=== PATIENT | female | born 1965 | race Caucasian/White ===

== ENCOUNTER 2016-05-25 09:40 | Outpatient (CLI) | payer OTHER, MEDICAID ==
[~2016-05-25 09:40] MED LIST: /WARF5TA OR; ACET500C OR; ACET50TA PO; ACETAMINOPHEN PO; ADDE10CA3 OR; ADDE1TAB22 PO; ADDE30CA PO; ALDA100T OR; ALDA25TA2 PO; AMPH30TA PO; ANUSHCSU PR; ARGININE PO; ASAC800T2 PO; ASACOL PO; BACITAB3 PO; BACT800T OR; BACTDSTA PO; BELLADONNA PO; BIOT50004 PO; BUPR15TASR PO; CALC250T PO; CARA1TAB2 PO; CEPH2CAP PO; CHOLESTYRAMINE PO; CIPR100T4 OR; CIPR25SS OR; CIPR500T89 PO; COEN100C2 PO; COLA100C PO; COLA50CA3 PO; COQ-100C PO; CYAN1000 IM; CYAN1000VL IM; DELZ400C PO; DICY10CA PO; DICY10CA2 PO; DICY10CA69 PO; DICY1CAP8 PO; DICY20TA11 PO; DIFI200T PO; ENTY1INJ IV; FEMA2.5T4 PO; FENT10PA TD; FENT75PA TD; FIRS1SOL3 PO; FLAG500T OR; FLAG500T PO; FOLI1TAB OR; FOLI1TAB86 PO; FOLITAB11 PO; FURO20TA2 PO; HYDR25TA6 OR; HYDR25TAB PO; HYDRO50TAB PO; IBUP200C PO; IBUPOTC PO; K-TA10TA PO; LEVA500T PO; LEVO125T3 PO; LEVO125T41 PO; LEVO137T2 PO; LEVO200T OR; LEVO200T31 PO; LEVO2TA OR; LEVO50TA45 PO; LOMO2.5T PO; LOMOTA PO; LOPE2TAB3 PO; MAG400TA PO; MAGN500T2 OR; METR500T10 PO; MS C30TA2 OR; MULTCHW13 PO; MULTIVIT PO; OCEA0.654; OMEP20TA7 OR; ONDA8TAB8 PO; OXY IR PO; OXYC15TA76 PO; OXYC1TAB57 PO; OXYC30TA84 PO; OXYCODONE PO; PERC5TAB8 OR; PERC7.5T12 PO; PERC7.5T8 OR; PHENOBARBITAL PO; POTA10CA PO; POTA20LI2 PO; POTA20TA2 OR; PRED10TA2 OR; PRED1TAB32 PO; PRED20TA PO; PRED20TAB PO; PRED50TA2 PO; PRESTIQUE PO; PRIL20CA9 PO; PRISTIQ PO; PROBCAP4 PO; PROBIOTICS PO; PROT1TAB2 PO; QUES4POW2 PO; SENO8.6T9 PO; SERT-141 PO; SODIUM CHLORIDE 0.9% INJ 10 ML SYR IV SCH; SYNT25TA PO; TUMS500C PO; TYLE325T5 PO; TYLE650T30 PO; VANC250C2 PO; VIT D 4000 PO; VITA10006 PO; VITA100T OR; VITA25003 IM; VITACAP31 PO; VITAD1000T PO; VITAMIN B 12; VITD2 PO; VITMTA PO; WELL150T PO; XANA0.5T PO; ZOFR8TAB PO; [UNRECOGNIZED DRUG - OTHER] PO; amphetamine salts PO; lomotil PO
[2016-05-25] MEDS ORDERED: VEDOLIZUMAB 300 MG in NS 250 ML IV ONE (10:30)
[2016-05-25] MEDS ORDERED: diphenhydrAMINE 25 MG CAP PO ONE (10:30)
[2016-05-25] MEDS ORDERED: ACETAMINOPHEN TAB 650MG DOSE (2X325MG) PO ONE (10:30)
== END 2016-05-25 11:30 | disposition home or self-care (01) ==
LOC: M INFU 09:40
PROVIDERS: ATTEND Internal Medicine Gastroenterology
DX: K50.00 Crohn's disease of small intestine without complications (principal); G51.0 Bell's palsy; E07.9 Disorder of thyroid, unspecified; R42 Dizziness and giddiness; I10 Essential (primary) hypertension; R06.83 Snoring; K90.0 Celiac disease; Z79.891 Long term (current) use of opiate analgesic; Z88.0 Allergy status to penicillin; Z88.8 Allergy status to other drugs, medicaments and biological substances; Z91.018 Allergy to other foods; Z86.718 Personal history of other venous thrombosis and embolism; Z92.3 Personal history of irradiation; Z92.21 Personal history of antineoplastic chemotherapy; Z85.3 Personal history of malignant neoplasm of breast; Z79.899 Other long term (current) drug therapy
CPT/HCPCS: 96413; J3380

== ENCOUNTER 2016-07-27 13:01 | Outpatient (CLI) | payer OTHER, MEDICAID ==
[~2016-07-27] VITALS: Ht 175.3 cm; Wt 83.5 kg
[~2016-07-27 13:01] MED LIST changes: +ACETAMINOPHEN TAB 650MG DOSE (2X325MG) PO ONE; -COLA100C PO; +COLA100C3 PO; +VEDOLIZUMAB 300 MG in NS 250 ML IV ONE; +diphenhydrAMINE 25 MG CAP PO ONE
[2016-07-27] MEDS ORDERED: DULO30CA PO (14:09)
== END 2016-07-27 14:05 | disposition home or self-care (01) ==
LOC: M INFU 13:01
PROVIDERS: ATTEND Internal Medicine Gastroenterology
DX: K50.00 Crohn's disease of small intestine without complications (principal); Z79.899 Other long term (current) drug therapy; Z79.1 Long term (current) use of non-steroidal anti-inflammatories (NSAID); Z79.891 Long term (current) use of opiate analgesic; Z88.0 Allergy status to penicillin; Z88.8 Allergy status to other drugs, medicaments and biological substances; Z91.018 Allergy to other foods
CPT/HCPCS: 96413; J3380

== ENCOUNTER 2016-08-10 12:18 | Emergency (ER) | payer OTHER, MEDICAID ==
[~2016-08-10] VITALS: Ht 175.3 cm; Wt 83.9 kg
[~2016-08-10 12:18] MED LIST changes: -ACETAMINOPHEN TAB 650MG DOSE (2X325MG) PO ONE; +DULO30CA PO; -SODIUM CHLORIDE 0.9% INJ 10 ML SYR IV SCH; -VEDOLIZUMAB 300 MG in NS 250 ML IV ONE; -diphenhydrAMINE 25 MG CAP PO ONE
[2016-08-10 12:25] VITALS: BP 160/119
[2016-08-10] MEDS ORDERED: ENTY1INJ IV (12:32)
[2016-08-10] MEDS ORDERED: HYDROmorphone HCL 1 MG/ML SYRINGE (J1170) IM ONE (13:00)
[2016-08-10] MEDS ORDERED: NS 500 ML IV ONE (14:00)
[2016-08-10] MEDS ORDERED: HYDROmorphone HCL 1 MG/ML SYRINGE (J1170) IV ONE (14:15)
--- NOTE | 2016-08-10 14:16 | REP ---
PELVIC ULTRASOUND: Real-time sonographic evaluation of pelvis performed utilizing transabdominal and endovaginal technique. Urinary bladder is empty. The uterus measures 7.1 x 3.2 x 4.6 cm. Endometrial thickness is 3 mm. Nabothian cysts are seen in the region of the cervix. The ovaries could not be visualized. No gross adnexal mass is seen. There is mild free fluid. IMPRESSION: Ovaries could not be visualized. There is mild free fluid. There is no gross mass. Signed by Rojelio Roth MD 08/10/2016 02:29 P
== END 2016-08-10 14:19 | disposition left against medical advice (07) ==
LOC: EDBD 12:18 → M ED 13:54
DX: G89.29 Other chronic pain (principal); R10.31 Right lower quadrant pain; Z87.891 Personal history of nicotine dependence; R51 Headache; I10 Essential (primary) hypertension; E78.00 Pure hypercholesterolemia, unspecified; J45.909 Unspecified asthma, uncomplicated; Z86.711 Personal history of pulmonary embolism; Z86.19 Personal history of other infectious and parasitic diseases; K90.0 Celiac disease; K51.90 Ulcerative colitis, unspecified, without complications; Z85.3 Personal history of malignant neoplasm of breast; Z85.41 Personal history of malignant neoplasm of cervix uteri; Z85.43 Personal history of malignant neoplasm of ovary; E03.9 Hypothyroidism, unspecified; F41.9 Anxiety disorder, unspecified; F32.9 Major depressive disorder, single episode, unspecified; D75.9 Disease of blood and blood-forming organs, unspecified; M54.9 Dorsalgia, unspecified; Z79.899 Other long term (current) drug therapy; Z88.0 Allergy status to penicillin; Z91.018 Allergy to other foods; Z88.6 Allergy status to analgesic agent; Z88.8 Allergy status to other drugs, medicaments and biological substances
CPT/HCPCS: 76830; 76856; 96372; 99282; J1170

== ENCOUNTER 2016-10-03 08:42 | Outpatient (CLI) | payer OTHER, MEDICAID ==
[~2016-10-03] VITALS: Ht 175.3 cm; Wt 83.5 kg
[~2016-10-03 08:42] MED LIST changes: +ACETAMINOPHEN TAB 650MG DOSE (2X325MG) PO ONE; +VEDOLIZUMAB 300 MG in NS 250 ML IV ONE; +diphenhydrAMINE 25 MG CAP PO ONE
[2016-10-03] MEDS ORDERED: SODIUM CHLORIDE 0.9% INJ 10 ML SYR IV SCH (09:00)
== END 2016-10-03 10:15 | disposition home or self-care (01) ==
LOC: M INFU 08:42
PROVIDERS: ATTEND Internal Medicine Gastroenterology
DX: K50.90 Crohn's disease, unspecified, without complications (principal); Z87.891 Personal history of nicotine dependence; Z85.3 Personal history of malignant neoplasm of breast; Z92.21 Personal history of antineoplastic chemotherapy; Z92.3 Personal history of irradiation; Z91.018 Allergy to other foods; Z88.0 Allergy status to penicillin; Z88.8 Allergy status to other drugs, medicaments and biological substances; Z79.899 Other long term (current) drug therapy; Z79.891 Long term (current) use of opiate analgesic
CPT/HCPCS: 96413; J3380

== ENCOUNTER → 2016-10-20 | Outpatient (REF) | payer OTHER, MEDICAID ==
[~2016-10-20] MED LIST changes: -ACETAMINOPHEN TAB 650MG DOSE (2X325MG) PO ONE; -VEDOLIZUMAB 300 MG in NS 250 ML IV ONE; -diphenhydrAMINE 25 MG CAP PO ONE
[2016-10-20 17:32] LABS: LUTEINIZING HORMONE 5.3 mIU/mL
[2016-10-20 17:53] LABS: PERCENT SATURATION 13.4 % (13.2-37.4)
== END ==
LOC: M LAB REF 16:34
PROVIDERS: ATTEND Internal Medicine Medical Oncology
DX: C50.119 Malignant neoplasm of central portion of unspecified female breast (principal)

== ENCOUNTER → 2016-11-02 | Outpatient (CLI) | payer OTHER, MEDICAID ==
[~2016-11-02] MED LIST changes: -ADDE30CA PO; +ADDE30CA3 PO; +ASAC800T3 PO; +ATOR1TAB21 PO; +BACITAB PO; -BACITAB3 PO; -COLA100C3 PO; +COLA100C5 PO; +DULO1CAP3 PO; +LETR2.5T2 PO; +LEVA1TAB2 PO; -LEVA500T PO; +METR1TAB66 PO; -METR500T10 PO; -MULTCHW13 PO; +MULTCHW14 PO; +OXYC-405 PO; -OXYC1TAB57 PO; +REGL10TA6 PO; +SYNT300T2 PO
--- NOTE | 2016-11-03 09:16 | DEXA ---
AP SPINE L1 - L4 0.893 -2.4 -2.0 LT FEMUR TOTAL 0.781 -1.8 -1.3 RT FEMUR TOTAL 0.760 -2.0 -1.5 TOTAL BODY TOTAL OTHER DUAL FEMUR FRAX* ASSESSMENT Risk factors: History of fracture (adult). Glucocorticoids (chronic). 10 year probability of fracture Major osteoporotic fracture 14.8 % Hip fracture 2.0 % COMMENTS: There is low bone density of the spine and hips. FOLLOW-UP: Recommendation for the next bone density exam: 2 years. MATTY
== END ==
LOC: M WHC 11:09
PROVIDERS: ATTEND Internal Medicine Medical Oncology
DX: C50.519 Malignant neoplasm of lower-outer quadrant of unspecified female breast (principal)

== ENCOUNTER → 2016-12-05 | Outpatient (REF) | payer OTHER, MEDICAID ==
[2016-12-05 16:35] LABS: ANION GAP 9 MEQ/L (8-16); AST/SGOT 39 U/L (15-37); BLOOD UREA NITROGEN 10 MG/DL (7-18); CARBON DIOXIDE LEVEL 26 MEQ/L (21-32); CHLORIDE LEVEL 106 MEQ/L (98-107); GLOMERULAR FILTRATION RATE > 60.0 (>51); GLUCOSE, FASTING 92 MG/DL (70-105); POTASSIUM SERUM 4.7 MEQ/L (3.5-5.1); SODIUM LEVEL 141 MEQ/L (136-145)
[2016-12-05 16:36] LABS: ALBUMIN 4.1 GM/DL (3.2-5.2); ALBUMIN/GLOBULIN RATIO 1.24 (1.00-1.93); ALKALINE PHOSPHATASE 173 U/L (45-117); ALT/SGPT 117 U/L (12-78); BILIRUBIN,TOTAL 0.2 MG/DL (0.2-1.0); FREE T4 1.38 NG/DL (0.76-1.46); TOTAL PROTEIN 7.4 GM/DL (6.4-8.2)
[2016-12-12 14:12] LABS: BENZODIAZEPINES, URINE SCREEN Negative ng/mL (Cutoff=200); FENTANYL URINE Positive (.); METHADONE, URINE SCREEN Negative ng/mL (Cutoff=300); OPIATES, URINE Negative ng/mL (Cutoff=300); OXYCODONE URINE Positive (.); pH, URINE 4.8 (4.5-8.9)
== END ==
LOC: M LABDRAW1 15:50
PROVIDERS: ATTEND Family Medicine
DX: R00.0 Tachycardia, unspecified (principal)

== ENCOUNTER → 2017-01-23 | Outpatient (REF) | payer OTHER, MEDICAID ==
[2017-01-23 14:45] LABS: LUTEINIZING HORMONE 10.1 mIU/mL
[2017-01-23 14:46] LABS: ESTRADIOL < 19.0 PG/ML
[2017-01-23 14:48] LABS: FOLLICLE STIMULATING HORMONE 27.9 mIU/mL
[2017-01-23 15:28] LABS: FERRITIN 9 NG/ML (8-252); PERCENT SATURATION 10.8 % (13.2-45.0); TOTAL IRON BINDING CAPACITY 406 UG/DL (250-450)
== END ==
LOC: M LAB REF 12:48
PROVIDERS: ATTEND Internal Medicine Medical Oncology
DX: C50.911 Malignant neoplasm of unspecified site of right female breast (principal)

== ENCOUNTER 2017-01-26 07:26 | Inpatient (IN) | payer MEDICAID, OTHER ==
[~2017-01-26] VITALS: Ht 175.3 cm; Wt 80.9 kg
[~2017-01-26 07:26] MED LIST changes: -ATOR1TAB21 PO; -DULO1CAP3 PO; -LETR2.5T2 PO; -REGL10TA6 PO; -SYNT300T2 PO
[2017-01-26] MEDS ORDERED: ATOR1TAB21 PO (07:40)
[2017-01-26] MEDS ORDERED: NS 1,000 ML IV ONE (08:00)
[2017-01-26] MEDS ORDERED: ONDANSETRON 4MG/2ML VIAL (J2405) IV ONE ×2 (08:00→11:45)
[2017-01-26] MEDS: MORPHINE 4 MG/ML 1ML SYRINGE IV PRN ×2 (08:08→18:08)
[2017-01-26] MEDS ORDERED: GASTROGRAFIN SOLUTION 30ML (Q9963) As Ordered ONE (08:15)
[2017-01-26] MEDS ORDERED: GASTROGRAFIN SOLUTION 30ML PO ONE (08:15)
[2017-01-26 08:19] LABS: BASO # 0.1 10^3/uL (0.0-0.2); BASO % 0.8 % (0.0-1.0); EOS # 0.2 10^3/uL (0.0-0.50); EOS % 1.5 % (0.0-3.0); IMMATURE GRANULOCYTE % 0.3 % (0-0); LYMPH # 4.2 10^3/uL (1.5-4.5); LYMPH % 32.8 % (24.0-44.0); MEAN CORPUSCULAR HEMOGLOBIN 29.9 pg (27.0-33.0); MEAN CORPUSCULAR VOLUME 87.9 fl (80.0-96.0); MONO # 0.9 10^3/uL (0.0-0.8); MONO % 6.8 % (0.0-5.0); NEUTROPHILS # 7.4 10^3/uL (1.8-7.7); NEUTROPHILS % 57.8 % (36.0-66.0); PLATELET COUNT, AUTOMATED 373 10^3/uL (150-450); RED CELL DISTRIBUTION WIDTH 12.9 % (11.5-14.5); WHITE BLOOD COUNT 12.9 10^3/uL (4.0-10.0)
[2017-01-26 08:40] LABS: ALBUMIN 3.5 GM/DL (3.2-5.2); ALBUMIN/GLOBULIN RATIO 0.95 (1.00-1.93); ALKALINE PHOSPHATASE 137 U/L (45-117); ALT/SGPT 45 U/L (12-78); ANION GAP 6 MEQ/L (8-16); AST/SGOT 14 U/L (15-37); BILIRUBIN,DIRECT < 0.1 MG/DL (0.0-0.2); BILIRUBIN,TOTAL 0.3 MG/DL (0.2-1.0); BLOOD UREA NITROGEN 12 MG/DL (7-18); CALCIUM LEVEL 9.5 MG/DL (8.5-10.1); CARBON DIOXIDE LEVEL 26 MEQ/L (21-32); CHLORIDE LEVEL 109 MEQ/L (98-107); CREATININE FOR GFR 0.75 MG/DL (0.55-1.02); GLOMERULAR FILTRATION RATE > 60.0 (>51); GLUCOSE, FASTING 103 MG/DL (70-105); POTASSIUM SERUM 2.8 MEQ/L (3.5-5.1); SODIUM LEVEL 141 MEQ/L (136-145); TOTAL PROTEIN 7.2 GM/DL (6.4-8.2)
[2017-01-26] MEDS ORDERED: GASTROGRAFIN SOLUTION 30ML (Q9963) PO ONE (08:45)
[2017-01-26] MEDS ORDERED: KCL 40MEQ in NS 1000ML 1,000 ML IV SCH ×2 (09:00→14:45)
--- NOTE | 2017-01-26 10:54 | REP ---
CT abdomen pelvis with IV contrast and with limited bowel contrast: Comparison is 08/09/2016. At the time of scanning there is a small volume of contrast and mid small bowel loops. The visualized lung torres are unremarkable. The hepatic parenchyma is homogeneous and unremarkable. There are surgical clips in the gallbladder fossa. The pancreas and spleen are unremarkable. There is diffuse gastric wall thickening. This is nonspecific and could be secondary to inflammation or neoplasm or could merely be artifact from non distension. There is no small bowel distension or large bowel distension. No evidence of bowel obstruction. There is no ascites. The mesentery is unremarkable. The adrenals and kidneys are unremarkable except for a nonobstructive right renal calculus in the lower pole. This is unchanged. On the comparison study there was a nonobstructive calculus in the left renal mid pole. This is no longer present. There is no hydronephrosis or ureteral calculus. The previous left ureteral calculi left hydronephrosis have resolved. The cecum is on a redundant mesentery as previously and is located anterior to the proximal ascending colon. The terminal ileum has a normal appearance. The appendix is not identified, however there is no pericecal inflammation or abscess. Pelvis: There is no ascites or adenopathy. The uterus and adnexa are unremarkable. On the comparison study there was a cyst in the pouch of Javier. This is no longer present. Impression: Essentially negative CT of the abdomen and pelvis except for diffuse gastric wall thickening. This is nonspecific and could merely be artifact from non distension, however, gastritis and neoplasm are also diagnostic considerations. There is a nonobstructive calculus in each kidney. There is no hydronephrosis. There are no ureteral calculi. There is no bowel distension or obstruction. No bowel wall thickening. No ascites or adenopathy. Half half half The previously there was a cyst in the pouch of Javier. This has resolved. Signed by Rojelio Henry MD 01/26/2017 10:46 A
[2017-01-26 11:01] LABS: ERYTHROCYTE SEDIMENTATION RATE 5 mm/hr (0-30)
[2017-01-26] MEDS ORDERED: MORPHINE 4 MG/ML 1ML SYRINGE IV ONE (11:45)
[2017-01-26] MEDS ORDERED: SYNT300T2 PO (14:31)
[2017-01-26] MEDS ORDERED: DULO1CAP3 PO (14:31)
[2017-01-26] MEDS ORDERED: ISOVUE-370 76% 100ML VIAL (Q9967) ONE (14:37)
[2017-01-26] MEDS ORDERED: IBUPROFEN 200 MG TAB PO PRN (15:15)
[2017-01-26] MEDS ORDERED: IBUPROFEN 400 MG TAB PO PRN (15:18)
[2017-01-26 17:20] VITALS: BP 123/84
--- NOTE | 2017-01-26 17:24 | HPEPDOC ---
General Date of Admission Jan 26, 2017 at 14:36 Chief Complaint The patient is a 51-year-old female complaining of chronic diarrhea and vomiting for 15 days. History of Present Illness PCP: Dr. Monica Rojas This is a 51-year-old female with a pertinent past medical history of celiac and Crohn's disease who is presenting today with chronic diarrhea and vomiting for 15 days. The patient states the diarrhea started about 15 days ago with loose stool that became watery diarrhea about a week ago. She admits to going about 8-21 times a day. She states she has no relief with anything She denies any blood in her stool. She states about 4 days ago, her vomiting episode started and she describes it as a brownish plus black specks in color. She states the last 2 days her vomit has been clear in color. Patient states that she has Zofran at home which provides no relief. She states she has a decrease of appetite on the fear of the vomiting and diarrhea. Patient also admits to an abdominal pain that is sharp in her lower quadrant that radiates sometimes towards her thoracic region. Patient states that she does have a fentanyl patch and oxycodone at home which she uses to get relief from the abdominal pain. Home Medications Scheduled (Entyvio) 300 Mg Inj, 300 MG IV ASDIRECTED, (Reported) EVERY 2 MONTHS, WAS DUE IN NOVEMBER BUT MISSED APPT Amphetamine/Dextroamphetamine (Adderall Xr 30 mg) 1 Cap Cap, 1 CAP PO DAILY, ( Reported) Atorvastatin Calcium (Atorvastatin Calcium) 20 Mg Tab, 20 MG PO QHS, (Reported) Cyanocobalamin (Cyanocobalamin) 1,000 Mcg/1 Ml Inj, 1,000 MCG IM 1XWK, (Reported ) THURSDAYS Duloxetine Hcl (Duloxetine HCl) 60 Mg Cap, 60 MG PO DAILY, (Reported) Fentanyl (Fentanyl) 75 Mcg Tdsy, 150 MCG TD Q3RD, (Reported) REMOVED 01/25/17 AND DID NOT REAPPLY Furosemide (Furosemide) 20 Mg Tab, 20 MG PO DAILY, (Reported) Lactobacillus Acidophilus (Bacid) 1 Tab Tab, 1 TAB PO TID, (Reported) Levothyroxine Sodium (Synthroid) 300 Mcg Tab, 300 MCG PO DAILY, (Reported) Multivitamins *[facility] STOCKED* (Thera M Plus *[facility] STOCKED*) 1 Tab Tab, 1 TAB PO QHS , (Reported) Scheduled PRN Ibuprofen (Ibuprofen) 200 Mg Tab, 400 MG PO Q6H PRN for PAIN / FEVER, (Reported) Ondansetron (Ondansetron Odt) 8 Mg Tab, 8 MG PO Q6H PRN for NAUSEA, (Reported) Oxycodone Hcl (Oxycodone HCl) 15 Mg Tab, 15 MG PO Q4H PRN for PAIN, (Reported) Allergies Coded Allergies: Budesonide (Verified Allergy, Intermediate, EYE SWELLING, 08/04/12) Penicillins (Verified Allergy, Intermediate, HIVES, 08/04/12) Wheat (Verified Allergy, Intermediate, CELIACS DISEASE, 09/06/11) Cephalexin (Verified Allergy, Unknown, 01/26/17) SWELLING Ciprofloxacin (Verified Allergy, Unknown, 01/26/17) SWELLING Gluten Meal (Verified Adverse Reaction, Intermediate, CELIACS DOSEASE, 08/04) Ketorolac Tromethamine (Verified Adverse Reaction, Intermediate, SEVERE HEADACHE, 05/12/13) Past Medical History Medical History 1. Breast cancer status post radiation therapy and chemotherapy June 2015 2. Crohn's 3. Celiac 4. Graves' disease status post radioiodine (2002) 5. Depression 6. Hyperlipidemia Surgical History 1. (971, 1999) 2. Tubal ligation 2002. Lumpectomy August 2013 4. Cholecystectomy 12/07/2007 5. Left knee arthroscopy 1995 6. Lithotripsy Family History Significant Family History: Noncontributory Social History * Smoker: former Smoker, quit greater than 1 year (previously was a 1 pack per day 30 years quit in 2012) Alcohol: other (quit drinking at the age of 16) Drugs: denies Review of Symptoms Constitutional: Denies: Chills, Fever, Night Sweats Eyes: Denies: Pain, Vision change ENT: Denies: Head Aches, Ear Pain, Dysphagia Skin: Denies: Rash, Lesions, Breakdown Pulmonary: Denies: Dyspnea, Cough Cardiovascular: Reports: Edema (chronic (left side)), Denies: Chest Pain, Palpitations, Orthopnea, Paroxysmal Noc. Dyspnea, Lt Headedness Gastrointestinal: Reports: Nausea, Vomiting, Abdominal Pain (lower quadrant), Diarrhea (15 days) Genitourinary: Denies: Dysuria, Frequency, Incontinence, Retention Hematologic: Denies: Bruising, Bleeding Excessively Musculoskeletal: Denies: Neck Pain, Back Pain, Joint Pain, Muscle Pain, Spasms Neurological: Denies: Weakness, Numbness, Change in speech, Confusion Psych: Reports: Mood Normal, Denies: Depression, Memory Issues Physical Examination General Exam: Positive: Alert, No Acute Distress Eye Exam: Positive: PERRLA, Conjunctiva & lids normal, EOMI, Negative: Sclera icteric ENT Exam: Positive: Atraumatic, Other ENT (poor dentitions) Neck Exam: Positive: Supple, Negative: JVD, thyromegaly Chest Exam: Positive: Clear to auscultation, Normal air movement Heart Exam: Positive: Rate Normal, Regular Rhythm, Normal S1, Normal S2, Negative: Murmurs, Rubs Telemetry: Positive: No significant arrhythmia Abdomen Exam: Positive: BS Hyperactive, Soft, Tenderness, Negative: Hepatospenomegaly Extremity Exam: Positive: Normal pulses, Negative: Clubbing, Cyanosis, Edema Skin Exam: Positive: Nl turgor and temperature, Negative: Breakdown, Lesion Neuro Exam: Positive: Normal Gait, Normal Speech, Cranial Nerves 3-12 NL, Reflexes 2+ Psych Exam: Positive: Mental status NL, Mood NL, Oriented x 3 Vital Signs Vital Signs Date Time Temp Pulse Resp B/P (MAP) Pulse Ox O2 Delivery O2 Flow Rate FiO2 01/26/17 12:26 98.3 84 18 111/69 (83) 98 Room Air Laboratory Data Labs 24H Laboratory Tests 2 01/26/17 08:01: White Blood Count 12.9H, Red Blood Count 4.72, Hemoglobin 14.1, Hematocrit 41.5 , Mean Corpuscular Volume 87.9, Mean Corpuscular Hemoglobin 29.9, Mean Corpuscular Hemoglobin Concent 34.0, Red Cell Distribution Width 12.9, Platelet Count 373, Neutrophils (%) (Auto) 57.8, Lymphocytes (%) (Auto) 32.8, Monocytes ( %) (Auto) 6.8H, Eosinophils (%) (Auto) 1.5, Basophils (%) (Auto) 0.8, Neutrophils # (Auto) 7.4, Lymphocytes # (Auto) 4.2, Monocytes # (Auto) 0.9H, Eosinophils # (Auto) 0.2, Basophils # (Auto) 0.1, Immature Granulocyte # (Auto) 0.0, Nucleated Red Blood Cells % (auto) 0.0, Erythrocyte Sedimentation Rate 5, Anion Gap 6L, Glomerular Filtration Rate > 60.0, Calcium Level 9.5, Aspartate Amino Transf (AST/SGOT) 14L, Alanine Aminotransferase (ALT/SGPT) 45, Alkaline Phosphatase 137H, Total Bilirubin 0.3, Direct Bilirubin < 0.1, C-Reactive Protein, Quantitative < 0.30, Total Protein 7.2, Albumin 3.5, Albumin/Globulin Ratio 0.95L, Lipase 125 01/26/17 09:29: Urine Appearance CLEAR, Urine Color YELLOW, Urine pH 6.0, Urine Specific [place] 1.010, Urine Protein NEGATIVE, Urine Glucose (UA) NEGATIVE, Urine Ketones NEGATIVE, Urine Urobilinogen 0.2, Urine Bilirubin NEGATIVE, Urine Leukocyte Esterase 1+H, Urine Blood 1+H, Urine Nitrite NEGATIVE, Urine WBC (Auto ) 15H, Urine RBC (Auto) 2, Urine Hyaline Casts (Auto) 0, Urine Bacteria (Auto) 1 +H, Urine Squamous Epithelial Cells 0, Urine Mucus (Auto) SMALL, Urine Sperm ( Auto) CBC/BMP Laboratory Tests 01/26/17 08:01 Red Blood Count 4.72, Mean Corpuscular Volume 87.9, Mean Corpuscular Hemoglobin 29.9, Mean Corpuscular Hemoglobin Concent 34.0, Red Cell Distribution Width 12.9 , Neutrophils (%) (Auto) 57.8, Lymphocytes (%) (Auto) 32.8, Monocytes (%) (Auto ) 6.8 H, Eosinophils (%) (Auto) 1.5, Basophils (%) (Auto) 0.8, Neutrophils # ( Auto) 7.4, Lymphocytes # (Auto) 4.2, Monocytes # (Auto) 0.9 H, Eosinophils # ( Auto) 0.2, Basophils # (Auto) 0.1 Microbiology Microbiology 01/26/17 Blood Culture, Received Pending 01/26/17 Gastrointestinal Tract Panel (PCR) - Final, Complete Enteropathogenic E.coli Assessment/Plan 1 Diarrhea - because of patient's multiple history of diarrhea have supplemented the patient with Imodium 2 mg PRN. The patient is positive for enteropathogenic Escherichia coli. We'll continue with supportive therapy. Have given the patient lactobacillus by mouth 3 times a day scheduled. And will continue to replenish the patient with IV fluids. 2. Hypokalemia - because of patient's hypokalemia now they have given the patient 40 mEq of potassium chloride in the ER. Will supplement spaces normal saline with another 40 velma-equivalents of potassium in her fluids. Will recheck in the morning with daily labs. 3. Abdominal pain - likely due to the chronic diarrhea patient also has underlying Crohn's disease. Patient does have ibuprofen 400 mg by mouth every 6 hours as needed for pain. We'll continue to monitor patient daily 4. Elevated leukocytes. Patient has been afebrile since admission and denies a history of having a fever. Because the patient's UA in the ER was positive for leukocyte esterase and WBCs with negative symptoms of dysuria. We will get a blood and urine culture. 5. Nausea- patient has Zofran 4 mg IV every 6 hours when necessary for nausea. 6. Hypothyroidism. Patient is to continue levothyroxine 300 mg by mouth daily at 6 AM. 7. Hyperlipidemia - continue with patient's Lipitor 20 mg by mouth at night 8. Depression/anxiety- continue with patient's Cymbalta 60 mg by mouth daily 9. DVT prophylaxis- TEDs/SCDs Plan / VTE VTE Prophylaxis Ordered?: Yes (TEDs ) GME ATTESTATION GME ATTESTATION My preceptor for this patient encounter was physically present in the building during the encounter and was fully available. As needed, all aspects of the patient interview, examination, medical decision making process, and medical care plan development were reviewed and approved by the preceptor. Preceptor is aware and concurs with the plan as stated in the body of this note and will attest to such by his/her cosignature. ATTENDING NOTE I have seen and examined the above patient and agree with the H and P as documented above. JERO CLIFTON DO Jan 26, 2017 17:24 [place] Jan 26, 2017 21:23
[2017-01-26] MEDS: LACTOBACILLUS ACIDOPHILUS CAP (BACID) PO SCH ×2 (18:44→21:46)
[2017-01-26] MEDS: LEVOTHYROXINE 150MCG TABLET (0.15MG) PO SCH (18:45)
[2017-01-26 20:00] VITALS: BP 124/81
[2017-01-26] MEDS ORDERED: LOPERAMIDE 2 MG CAP PO SCH (21:00)
[2017-01-26] MEDS ORDERED: FENTANYL REMOVAL DOCUMENTATION MISC XX SCH (21:15)
[2017-01-26] MEDS ORDERED: LOPERAMIDE 2 MG CAP PO PRN (21:30)
[2017-01-26] MEDS: NS 1,000 ML IV SCH (21:46)
[2017-01-26] MEDS: MULTIVITAMINS/MINERALS THERAP 1 TAB PO SCH (21:46)
[2017-01-26] MEDS: ATORVASTATIN 20 MG TAB PO SCH (21:46)
[2017-01-26] MEDS: fentaNYL 75 MCG/HR PATCH TD SCH (21:47)
[2017-01-26] MEDS: oxyCODONE 5MG TAB PO PRN (23:49)
[2017-01-27] VITALS: BP 129/76
[2017-01-27] MEDS ORDERED: SODIUM CHLORIDE 0.9% INJ 10 ML SYR IV PRN (01:30)
[2017-01-27 04:00] VITALS: BP 151/83
[2017-01-27] MEDS: LEVOTHYROXINE 150MCG TABLET (0.15MG) PO SCH (05:55)
[2017-01-27 07:17] LABS: MEAN CORPUSCULAR HEMOGLOBIN 29.8 pg (27.0-33.0); MEAN CORPUSCULAR VOLUME 90.3 fl (80.0-96.0); RED CELL DISTRIBUTION WIDTH 13.2 % (11.5-14.5); WHITE BLOOD COUNT 8.2 10^3/uL (4.0-10.0)
[2017-01-27 07:40] LABS: ALBUMIN 3.1 GM/DL (3.2-5.2); ALBUMIN/GLOBULIN RATIO 0.97 (1.00-1.93); ALKALINE PHOSPHATASE 125 U/L (45-117); ALT/SGPT 35 U/L (12-78); ANION GAP 2 MEQ/L (8-16); AST/SGOT 12 U/L (15-37); BILIRUBIN,TOTAL 0.4 MG/DL (0.2-1.0); BLOOD UREA NITROGEN 7 MG/DL (7-18); CALCIUM LEVEL 9.5 MG/DL (8.5-10.1); CARBON DIOXIDE LEVEL 28 MEQ/L (21-32); CHLORIDE LEVEL 116 MEQ/L (98-107); GLOMERULAR FILTRATION RATE > 60.0 (>51); GLUCOSE, FASTING 96 MG/DL (70-105); MAGNESIUM LEVEL 2.3 MG/DL (1.8-2.4); POTASSIUM SERUM 3.6 MEQ/L (3.5-5.1); SODIUM LEVEL 146 MEQ/L (136-145); TOTAL PROTEIN 6.3 GM/DL (6.4-8.2)
[2017-01-27 08:00] VITALS: BP 121/68
[2017-01-27] MEDS: DULoxetine 30 MG CAP (CYMBALTA) PO SCH (08:51)
[2017-01-27] MEDS: LACTOBACILLUS ACIDOPHILUS CAP (BACID) PO SCH ×3 (08:51→20:32)
[2017-01-27] MEDS: NS 1,000 ML IV SCH ×2 (08:54→18:10)
[2017-01-27] MEDS: SODIUM CHLORIDE 0.9% INJ 10 ML SYR IV SCH (10:18)
--- NOTE | 2017-01-27 10:45 | IPNPDOC ---
Date Seen The patient was seen on 01/27/17. Progress Note SUBJECTIVE: Patient is a 51 y.o female with hx of Crohn's and celiac disease with hx of chronic diarrhea admitted for persistent diarrhea 2/2 EPEC. Pt notes that she is feeling only slightly improved. Notes that she had 10 bowel movements from the time she got moved from the ED until about 3AM. Denies noting any blood in her stool and states they were all loose. She also reports diffuse lower abdominal pain that she describes as sharp and stabbing and non radiating. states this remains unchanged. She denies urinary sxs, CP, SOB, nausea or vomiting. OBJECTIVE PHYSICAL EXAMINATION: VITAL SIGNS: Please see below. GENERAL: resting comfortably at the time of assessment, sleeping, NAD HEENT: normocephalic, atraumatic CARDIOVASCULAR: RRR, normal S1/S2, no murmurs, rubs or gallops RESPIRATORY: lungs CTA bilaterally ABDOMINAL: bowel sounds present, soft, diffuse moderate to severe tenderness to light palpation to bilateral lower quadrants. no upper abdomen tenderness. EXTREMITIES: no LE edema NEUROLOGICAL: A&Ox3 PSYCHOLOGICAL: normal affect, answers questions appropriately. LABORATORY DATA: Please see below. MICROBIOLOGY: Please see below. DVT prophylaxis ordered?: Heparin ASSESSMENT AND PLAN: This is a 51 y/o female with hx of Crohn's and Celiac admitted for diarrhea 2/2 EPEC exacerbating patient's chronic diarrhea. PROBLEMS: 1 Diarrhea - Not significantly improved per patient, we will continue with Imodium 2mg PRN as well as Lactobacillus 3x daily scheduled. Plan to continue supportive therapy for EPEC with IV fluids and electrolyte replacement. 2. Hypokalemia - resolved, patient's K 3.6 today with Mg of 2.3. We will continue to monitor as this will lilkely need to be repleted again considering patient's persistent diarrhea. Will recheck in the morning with daily labs. 3. Abdominal pain - likely due to the chronic diarrhea patient also has underlying Crohn's disease. Patient does have ibuprofen 400 mg by mouth every 6 hours as needed for pain. We'll continue to monitor patient daily. 4. Leukocytosis- resolved. patient's WBC today 8.2 down from 12.9. Patient remains afebrile. Because the patient's UA in the ER was positive for leukocyte esterase and WBCs with negative symptoms of dysuria, blood and urine culture were obtained. Both pending at this time. 5. Nausea- improving per patient, patient has Zofran 4 mg IV every 6 hours when necessary for nausea. 6. Hypothyroidism. Patient is to continue levothyroxine 300 mg by mouth daily at 6 AM, rechecking the patient TSH levels this morning. 7. Hyperlipidemia - continue with patient's Lipitor 20 mg by mouth at night 8. Depression/anxiety- continue with patient's Cymbalta 60 mg by mouth daily 9. DVT prophylaxis- TEDs/SCDs DISPOSITION: Continue with supportive therapy, rehydration and electrolyte replacement as needed. [facility] Vital Signs/I&O Vital Signs Date Time Temp Pulse Resp B/P (MAP) Pulse Ox O2 Delivery O2 Flow Rate FiO2 01/27/17 08:00 98.9 66 16 121/68 (85) 98 Room Air I&O- Last 24 Hours up to 6 AM 01/28/17 05:59 Intake Total 1700 ml Output Total 600 ml Balance 1100 ml Laboratory Data 24H LABS Laboratory Tests 2 01/26/17 09:29: Urine Appearance CLEAR, Urine Color YELLOW, Urine pH 6.0, Urine Specific [place] 1.010, Urine Protein NEGATIVE, Urine Glucose (UA) NEGATIVE, Urine Ketones NEGATIVE, Urine Urobilinogen 0.2, Urine Bilirubin NEGATIVE, Urine Leukocyte Esterase 1+H, Urine Blood 1+H, Urine Nitrite NEGATIVE, Urine WBC (Auto ) 15H, Urine RBC (Auto) 2, Urine Hyaline Casts (Auto) 0, Urine Bacteria (Auto) 1 +H, Urine Squamous Epithelial Cells 0, Urine Mucus (Auto) SMALL, Urine Sperm ( Auto) 01/27/17 06:59: Anion Gap 2L, Glomerular Filtration Rate > 60.0, Blood Urea Nitrogen 7, Creatinine 0.70, Sodium Level 146H, Potassium Level 3.6, Chloride Level 116H, Carbon Dioxide Level 28, Calcium Level 9.5, Aspartate Amino Transf (AST/SGOT) 12L, Alanine Aminotransferase (ALT/SGPT) 35, Alkaline Phosphatase 125H, Total Bilirubin 0.4, Total Protein 6.3L, Albumin 3.1L, Magnesium Level 2.3, Albumin/ Globulin Ratio 0.97L CBC/BMP Laboratory Tests 01/26/17 19:45 01/27/17 06:59 Red Blood Count 4.13, Mean Corpuscular Volume 90.3, Mean Corpuscular Hemoglobin 29.8, Mean Corpuscular Hemoglobin Concent 33.0, Red Cell Distribution Width 13.2 , Calcium Level 9.5, Aspartate Amino Transf (AST/SGOT) 12 L, Alanine Aminotransferase (ALT/SGPT) 35, Alkaline Phosphatase 125 H, Total Bilirubin 0.4 , Total Protein 6.3 L, Albumin 3.1 L Microbiology Microbiology 01/26/17 Blood Culture, Received Pending 01/26/17 Gastrointestinal Tract Panel (PCR) - Final, Complete Enteropathogenic E.coli 01/26/17 Urine Culture, Received Pending GME ATTESTATION GME ATTESTATION My preceptor for this patient encounter was physically present in the building during the encounter and was fully available. As needed, all aspects of the patient interview, examination, medical decision making process, and medical care plan development were reviewed and approved by the preceptor. Preceptor is aware and concurs with the plan as stated in the body of this note and will attest to such by his/her cosignature. JERO CLIFTON DO Jan 27, 2017 09:40
[2017-01-27 16:00] VITALS: BP 105/54
[2017-01-27] MEDS: oxyCODONE 5MG TAB PO PRN ×2 (17:13→23:06)
[2017-01-27 20:00] VITALS: BP 109/61
[2017-01-27] MEDS: MULTIVITAMINS/MINERALS THERAP 1 TAB PO SCH (20:32)
[2017-01-27] MEDS: ATORVASTATIN 20 MG TAB PO SCH (20:32)
--- NOTE | 2017-01-27 23:23 | ECGEPIP ---
Stationary ECG Study [facility] Test Date: 2017-01-26 Pat Name: AMUREEN PORTILLO Department: Room: [place] [address] Gender: F Investigations Manager: KOBI : [id number] Requested By: JERO Camacho Order Number: [id number] Reading MD: Huey Balderas Measurements Intervals [place] Rate: 73 P: 33 AL: 158 QRS: 31 QRSD: 92 T: 48 QT: 388 QTc: 430 Interpretive Statements SINUS RHYTHM NONSPECIFIC T-WAVE ABNORMALITY LAST TRACING ON 12/09/2014 AT 16:15:57, THERE IS NOW LESS ST-T ABNORMALITY Electronically Signed On 01-27-2017 23:23:28 EDT by Huey Balderas
[2017-01-28] VITALS: BP 120/71
[2017-01-28] MEDS: NS 1,000 ML IV SCH ×3 (04:11→23:34)
[2017-01-28] MEDS: oxyCODONE 5MG TAB PO PRN ×4 (04:12→20:40)
[2017-01-28] MEDS: LEVOTHYROXINE 150MCG TABLET (0.15MG) PO SCH (06:24)
[2017-01-28 07:24] LABS: MEAN CORPUSCULAR HEMOGLOBIN 29.6 pg (27.0-33.0); MEAN CORPUSCULAR HGB CONC 32.6 g/dl (32.0-36.5); MEAN CORPUSCULAR VOLUME 90.8 fl (80.0-96.0); RED CELL DISTRIBUTION WIDTH 13.2 % (11.5-14.5); WHITE BLOOD COUNT 8.8 10^3/uL (4.0-10.0)
[2017-01-28 07:45] LABS: ALBUMIN 2.8 GM/DL (3.2-5.2); ALBUMIN/GLOBULIN RATIO 0.97 (1.00-1.93); ALKALINE PHOSPHATASE 108 U/L (45-117); ALT/SGPT 33 U/L (12-78); ANION GAP 4 MEQ/L (8-16); AST/SGOT 11 U/L (15-37); BILIRUBIN,TOTAL 0.2 MG/DL (0.2-1.0); BLOOD UREA NITROGEN 9 MG/DL (7-18); CALCIUM LEVEL 9.3 MG/DL (8.5-10.1); CARBON DIOXIDE LEVEL 27 MEQ/L (21-32); CHLORIDE LEVEL 114 MEQ/L (98-107); CREATININE FOR GFR 0.66 MG/DL (0.55-1.02); GLOMERULAR FILTRATION RATE > 60.0 (>51); GLUCOSE, FASTING 99 MG/DL (70-105); MAGNESIUM LEVEL 2.1 MG/DL (1.8-2.4); POTASSIUM SERUM 4.1 MEQ/L (3.5-5.1); SODIUM LEVEL 145 MEQ/L (136-145); TOTAL PROTEIN 5.7 GM/DL (6.4-8.2)
[2017-01-28 08:00] VITALS: BP 108/56
[2017-01-28] MEDS: LACTOBACILLUS ACIDOPHILUS CAP (BACID) PO SCH ×3 (08:46→20:26)
[2017-01-28] MEDS: DULoxetine 30 MG CAP (CYMBALTA) PO SCH (08:46)
[2017-01-28] MEDS ORDERED: INFLUENZA QUADRIVALENT PF VACCINE 0.5ML SYRINGE (90686) IM ONE (09:00)
[2017-01-28] MEDS: SODIUM CHLORIDE 0.9% INJ 10 ML SYR IV SCH (09:09)
[2017-01-28 16:00] VITALS: BP 134/68
[2017-01-28] MEDS: MULTIVITAMINS/MINERALS THERAP 1 TAB PO SCH (20:27)
[2017-01-28] MEDS: ATORVASTATIN 20 MG TAB PO SCH (20:27)
[2017-01-28 20:30] VITALS: BP 113/64
[2017-01-29] VITALS: BP 117/61
[2017-01-29] MEDS: oxyCODONE 5MG TAB PO PRN ×6 (01:57→23:48)
[2017-01-29] MEDS: LEVOTHYROXINE 150MCG TABLET (0.15MG) PO SCH (06:44)
[2017-01-29 07:29] LABS: MEAN CORPUSCULAR HEMOGLOBIN 30.1 pg (27.0-33.0); MEAN CORPUSCULAR HGB CONC 32.7 g/dl (32.0-36.5); MEAN CORPUSCULAR VOLUME 92.2 fl (80.0-96.0); RED CELL DISTRIBUTION WIDTH 12.9 % (11.5-14.5); WHITE BLOOD COUNT 8.1 10^3/uL (4.0-10.0)
[2017-01-29 07:50] LABS: ALKALINE PHOSPHATASE 109 U/L (45-117); ALT/SGPT 31 U/L (12-78); ANION GAP 5 MEQ/L (8-16); AST/SGOT 13 U/L (15-37); BILIRUBIN,TOTAL 0.2 MG/DL (0.2-1.0); BLOOD UREA NITROGEN 8 MG/DL (7-18); CALCIUM LEVEL 9.2 MG/DL (8.5-10.1); CARBON DIOXIDE LEVEL 28 MEQ/L (21-32); CHLORIDE LEVEL 110 MEQ/L (98-107); CREATININE FOR GFR 0.68 MG/DL (0.55-1.02); GLOMERULAR FILTRATION RATE > 60.0 (>51); GLUCOSE, FASTING 82 MG/DL (70-105); MAGNESIUM LEVEL 2.2 MG/DL (1.8-2.4); SODIUM LEVEL 143 MEQ/L (136-145)
[2017-01-29 08:00] VITALS: BP 117/56
[2017-01-29] MEDS: SODIUM CHLORIDE 0.9% INJ 10 ML SYR IV SCH (09:00)
[2017-01-29] MEDS: LACTOBACILLUS ACIDOPHILUS CAP (BACID) PO SCH ×3 (09:29→21:48)
[2017-01-29] MEDS: DULoxetine 30 MG CAP (CYMBALTA) PO SCH (09:29)
[2017-01-29] MEDS: NS 1,000 ML IV SCH ×2 (09:29→19:54)
--- NOTE | 2017-01-29 15:05 | IPNPDOC ---
Date Seen The patient was seen on 01/29/17. Progress Note SUBJECTIVE: Patient is a 51 y.o female with hx of Crohn's and celiac disease with hx of chronic diarrhea admitted for persistent diarrhea 2/2 EPEC.Feeling slightly better today but felt that salad she ate yesterday has caused lose stool and cramping today. No f/c/r, CP, sob, productive sputum. OBJECTIVE PHYSICAL EXAMINATION: VITAL SIGNS: Please see below. PHYSICAL EXAMINATION: VITAL SIGNS: Please see below. GENERAL: resting comfortably at the time of assessment, sleeping, NAD HEENT: normocephalic, atraumatic CARDIOVASCULAR: RRR, normal S1/S2, no murmurs, rubs or gallops RESPIRATORY: lungs CTA bilaterally ABDOMINAL: bowel sounds present, soft, diffuse moderate to severe tenderness to light palpation to bilateral lower quadrants. no upper abdomen tenderness. EXTREMITIES: no LE edema NEUROLOGICAL: cn II through XII intact PSYCHOLOGICAL: negative. LABORATORY DATA: Please see below. DVT prophylaxis ordered?: [yes] ASSESSMENT AND PLAN: This is a 51 y/o female with hx of Crohn's and Celiac admitted for diarrhea 2/2 EPEC exacerbating patient's chronic diarrhea. . PROBLEMS: 1 Diarrhea -some improvement. has EPEC. Continue supportive treatment. 2. Hypokalemia: resolved 3. Abdominal pain - mild improvement. 4. Leukocytosis- improved. 4a. Slight drop in h/h likely dilutional. 5. Nausea- Zofran 4 mg IV every 6 hours when necessary for nausea. 6. Hypothyroidism. continue levothyroxine. 7. Hyperlipidemia - Lipitor 20 mg 8. Depression/anxiety-Cymbalta 60 mg 9. DVT prophylaxis- TEDs/SCDs DISPOSITION: [anticipate home d/c tomorrow.]. VS, I&O, 24H, Fishbone Vital Signs/I&O Vital Signs Date Time Temp Pulse Resp B/P (MAP) Pulse Ox O2 Delivery O2 Flow Rate FiO2 01/29/17 14:32 18 01/29/17 08:00 98.9 81 117/56 (76) 96 Room Air I&O- Last 24 Hours up to 6 AM 01/30/17 06:00 Output Total 350 ml Balance -350 ml Laboratory Data 24H LABS Laboratory Tests 2 01/29/17 07:06: Anion Gap 5L, Glomerular Filtration Rate > 60.0, Blood Urea Nitrogen 8, Creatinine 0.68, Sodium Level 143, Potassium Level 4.0, Chloride Level 110H, Carbon Dioxide Level 28, Calcium Level 9.2, Aspartate Amino Transf (AST/SGOT) 13L, Alanine Aminotransferase (ALT/SGPT) 31, Alkaline Phosphatase 109, Total Bilirubin 0.2, Total Protein 6.0L, Albumin 3.0L, Magnesium Level 2.2, Albumin/ Globulin Ratio 1.00 CBC/BMP Laboratory Tests 01/29/17 07:06 Red Blood Count 3.19 L, Mean Corpuscular Volume 92.2, Mean Corpuscular Hemoglobin 30.1, Mean Corpuscular Hemoglobin Concent 32.7, Red Cell Distribution Width 12.9, Calcium Level 9.2, Aspartate Amino Transf (AST/SGOT) 13 L, Alanine Aminotransferase (ALT/SGPT) 31, Alkaline Phosphatase 109, Total Bilirubin 0.2, Total Protein 6.0 L, Albumin 3.0 L Microbiology Microbiology 01/26/17 Blood Culture - Preliminary, Resulted No Growth after 48 hours. All Specime... 01/26/17 Gastrointestinal Tract Panel (PCR) - Final, Complete Enteropathogenic E.coli 01/26/17 Urine Culture - Final, Complete EDISON MCKEON DO Jan 29, 2017 15:05
[2017-01-29 16:00] VITALS: BP 130/68
[2017-01-29] MEDS: ONDANSETRON 4MG/2ML VIAL (J2405) IV PRN (18:50)
[2017-01-29 20:00] VITALS: BP 123/73
[2017-01-29] MEDS: MULTIVITAMINS/MINERALS THERAP 1 TAB PO SCH (21:49)
[2017-01-29] MEDS: ATORVASTATIN 20 MG TAB PO SCH (21:49)
[2017-01-29] MEDS: fentaNYL 75 MCG/HR PATCH TD SCH (21:50)
[2017-01-29 23:50] VITALS: BP 109/66
[2017-01-30] MEDS: NS 1,000 ML IV SCH (05:05)
[2017-01-30] MEDS: oxyCODONE 5MG TAB PO PRN ×3 (05:14→23:03)
[2017-01-30] MEDS: LEVOTHYROXINE 150MCG TABLET (0.15MG) PO SCH (05:14)
[2017-01-30 07:22] LABS: MEAN CORPUSCULAR HEMOGLOBIN 29.6 pg (27.0-33.0); MEAN CORPUSCULAR VOLUME 92.6 fl (80.0-96.0); WHITE BLOOD COUNT 8.8 10^3/uL (4.0-10.0)
[2017-01-30 07:56] LABS: ALBUMIN/GLOBULIN RATIO 1.03 (1.00-1.93); ALKALINE PHOSPHATASE 117 U/L (45-117); ALT/SGPT 30 U/L (12-78); ANION GAP 4 MEQ/L (8-16); AST/SGOT 14 U/L (15-37); BILIRUBIN,TOTAL 0.3 MG/DL (0.2-1.0); BLOOD UREA NITROGEN 5 MG/DL (7-18); CALCIUM LEVEL 9.4 MG/DL (8.5-10.1); CARBON DIOXIDE LEVEL 31 MEQ/L (21-32); CHLORIDE LEVEL 111 MEQ/L (98-107); CREATININE FOR GFR 0.83 MG/DL (0.55-1.02); GLOMERULAR FILTRATION RATE > 60.0 (>51); GLUCOSE, FASTING 84 MG/DL (70-105); MAGNESIUM LEVEL 2.3 MG/DL (1.8-2.4); SODIUM LEVEL 146 MEQ/L (136-145); TOTAL PROTEIN 5.9 GM/DL (6.4-8.2)
[2017-01-30 08:00] VITALS: BP 101/66
[2017-01-30] MEDS: DULoxetine 30 MG CAP (CYMBALTA) PO SCH (08:29)
[2017-01-30] MEDS: LACTOBACILLUS ACIDOPHILUS CAP (BACID) PO SCH ×3 (08:29→20:11)
[2017-01-30] MEDS: SODIUM CHLORIDE 0.9% INJ 10 ML SYR IV SCH (11:26)
--- NOTE | 2017-01-30 14:00 | IPNPDOC ---
Subjective Date Seen The patient was seen on 01/30/17. Subjective Chief Complaint/HPI The patient is a 51-year-old female admitted with a reason for visit of Diarrhea Hypokalemia. Events since last encounter Patient was seen this morning, at bedside. States she is doing better this AM, diarrhea episodes are improving this morning with only 1 episodes this AM. The patient had her infuse a port accessed on evening for her potassium IV and it couldn't be flushed. The patient requested her port to reaccessed the morning to have it flushed with herpain. We used an 1.5 aponte needle. The port was flushed successfully this AM and was deaccessed. Gastrointestinal: Reports: Diarrhea Objective Physical Examination General Exam: Positive: Alert, No Acute Distress Eye Exam: Positive: PERRLA, Conjunctiva & lids normal, EOMI, Negative: Sclera icteric ENT Exam: Positive: Atraumatic, Other ENT (poor dentitions) Neck Exam: Positive: Supple, Negative: JVD, thyromegaly Chest Exam: Positive: Clear to auscultation, Normal air movement Heart Exam: Positive: Rate Normal, Regular Rhythm, Normal S1, Normal S2, Negative: Murmurs, Rubs Telemetry: Positive: No significant arrhythmia Abdomen Exam: Positive: BS Hyperactive, Soft, Tenderness, Negative: Hepatospenomegaly Extremity Exam: Positive: Normal pulses, Negative: Clubbing, Cyanosis, Edema Skin Exam: Positive: Nl turgor and temperature, Negative: Breakdown, Lesion Neuro Exam: Positive: Normal Gait, Normal Speech, Cranial Nerves 3-12 NL, Reflexes 2+ Psych Exam: Positive: Mental status NL, Mood NL, Oriented x 3 Assessment /Plan Assessment 1 Diarrhea -significantly improved per patient, continue Lactobacillus 3x daily scheduled. Plan to continue supportive therapy for EPEC. Labs are stable and diarrhea is improving this AM. Will D.C. IV Fluids and Imodium this AM. 2. Hypokalemia - resolved, patient's K 5.0. Diarrhea is improving which is helping with potassium levels. Will recheck in the morning and likely discharge the patient tomorrow. 3. Abdominal pain - likely due to the chronic diarrhea patient also has underlying Crohn's disease. Patient does have ibuprofen 400 mg by mouth every 6 hours as needed for pain. We'll continue to monitor patient daily. 4. Leukocytosis- resolved. patient's WBC is stable. Patient remains afebrile. Because the patient's UA in the ER was positive for leukocyte esterase and WBCs with negative symptoms of dysuria, blood and urine culture were obtained. Blood cultures is negative for 72 hours and Urine culture is negative final. 5. Nausea- improving per patient, patient has Zofran 4 mg IV every 6 hours when necessary for nausea. 6. Hypothyroidism. Patient is to continue levothyroxine 300 mg by mouth daily at 6 AM. 7. Hyperlipidemia - continue with patient's Lipitor 20 mg by mouth at night 8. Depression/anxiety- continue with patient's Cymbalta 60 mg by mouth daily 9. DVT prophylaxis- TEDs/SCDs Dispostion: Will continue the patient today and will discharge on 01/31/17. Plan/VTE VTE Prophylaxis Ordered?: Yes (TEDs ) VS, I&O, 24H, Fishbone Vital Signs/I&O Vital Signs Date Time Temp Pulse Resp B/P (MAP) Pulse Ox O2 Delivery O2 Flow Rate FiO2 01/30/17 08:00 98.0 86 18 101/66 (78) 95 Room Air I&O- Last 24 Hours up to 6 AM 01/31/17 06:00 Intake Total 960 ml Balance 960 ml Laboratory Data 24H LABS Laboratory Tests 2 01/30/17 06:38: Anion Gap 4L, Glomerular Filtration Rate > 60.0, Blood Urea Nitrogen 5L, Creatinine 0.83, Sodium Level 146H, Potassium Level 5.0#, Chloride Level 111H, Carbon Dioxide Level 31, Calcium Level 9.4, Aspartate Amino Transf (AST/SGOT) 14L, Alanine Aminotransferase (ALT/SGPT) 30, Alkaline Phosphatase 117, Total Bilirubin 0.3, Total Protein 5.9L, Albumin 3.0L, Magnesium Level 2.3, Albumin/ Globulin Ratio 1.03 CBC/BMP Laboratory Tests 01/30/17 06:38 Red Blood Count 4.32, Mean Corpuscular Volume 92.6, Mean Corpuscular Hemoglobin 29.6, Mean Corpuscular Hemoglobin Concent 32.0, Red Cell Distribution Width 13.0 , Calcium Level 9.4, Aspartate Amino Transf (AST/SGOT) 14 L, Alanine Aminotransferase (ALT/SGPT) 30, Alkaline Phosphatase 117, Total Bilirubin 0.3, Total Protein 5.9 L, Albumin 3.0 L Microbiology Microbiology 01/26/17 Blood Culture - Preliminary, Resulted No Growth after 72 hours. All specime... 01/26/17 Gastrointestinal Tract Panel (PCR) - Final, Complete Enteropathogenic E.coli 01/26/17 Urine Culture - Final, Complete GME ATTESTATION GME ATTESTATION My preceptor for this patient encounter was physically present in the building during the encounter and was fully available. As needed, all aspects of the patient interview, examination, medical decision making process, and medical care plan development were reviewed and approved by the preceptor. Preceptor is aware and concurs with the plan as stated in the body of this note and will attest to such by his/her cosignature. JERO CLIFTON DO Jan 30, 2017 13:11
[2017-01-30 16:00] VITALS: BP 113/64
[2017-01-30 20:00] VITALS: BP 122/74
[2017-01-30] MEDS: ATORVASTATIN 20 MG TAB PO SCH (20:11)
[2017-01-30] MEDS: MULTIVITAMINS/MINERALS THERAP 1 TAB PO SCH (20:11)
[2017-01-30] MEDS: ONDANSETRON 4MG/2ML VIAL (J2405) IV PRN (23:02)
[2017-01-31] VITALS: BP 106/71
[2017-01-31 04:00] VITALS: BP 123/76
[2017-01-31] MEDS: LEVOTHYROXINE 150MCG TABLET (0.15MG) PO SCH (05:40)
[2017-01-31] MEDS: oxyCODONE 5MG TAB PO PRN ×2 (05:44→09:59)
[2017-01-31 07:01] LABS: MEAN CORPUSCULAR HEMOGLOBIN 30.1 pg (27.0-33.0); MEAN CORPUSCULAR HGB CONC 32.6 g/dl (32.0-36.5); MEAN CORPUSCULAR VOLUME 92.3 fl (80.0-96.0); RED CELL DISTRIBUTION WIDTH 13.1 % (11.5-14.5); WHITE BLOOD COUNT 9.3 10^3/uL (4.0-10.0)
[2017-01-31 07:38] LABS: ALBUMIN/GLOBULIN RATIO 0.88 (1.00-1.93); ALKALINE PHOSPHATASE 118 U/L (45-117); ALT/SGPT 32 U/L (12-78); ANION GAP 3 MEQ/L (8-16); AST/SGOT 15 U/L (15-37); BILIRUBIN,TOTAL 0.2 MG/DL (0.2-1.0); BLOOD UREA NITROGEN 7 MG/DL (7-18); CALCIUM LEVEL 9.5 MG/DL (8.5-10.1); CARBON DIOXIDE LEVEL 32 MEQ/L (21-32); CHLORIDE LEVEL 107 MEQ/L (98-107); CREATININE FOR GFR 0.77 MG/DL (0.55-1.02); GLOMERULAR FILTRATION RATE > 60.0 (>51); GLUCOSE, FASTING 95 MG/DL (70-105); MAGNESIUM LEVEL 2.4 MG/DL (1.8-2.4); POTASSIUM SERUM 4.2 MEQ/L (3.5-5.1); SODIUM LEVEL 142 MEQ/L (136-145); TOTAL PROTEIN 6.4 GM/DL (6.4-8.2)
[2017-01-31 08:00] VITALS: BP 120/65
[2017-01-31] MEDS: LACTOBACILLUS ACIDOPHILUS CAP (BACID) PO SCH (08:22)
[2017-01-31] MEDS: DULoxetine 30 MG CAP (CYMBALTA) PO SCH (08:22)
[2017-01-31] MEDS: SODIUM CHLORIDE 0.9% INJ 10 ML SYR IV SCH (08:23)
--- NOTE | 2017-01-31 12:06 | DS.PDOC ---
Discharge Summary General Date of Admission Jan 31, 2017 at 11:27 Date of Discharge 01/31/2017 Discharge Summary PROCEDURES PERFORMED DURING STAY: [None]. ADMITTING DIAGNOSES: 1. . Enteropathogenic E. Coli 2. HypoKalemia DISCHARGE DIAGNOSES: 1. . Enteropathogenic E. Coli 2. HypoKalemia COMPLICATIONS/CHIEF COMPLAINT: Diarrhea Hypokalemia. HISTORY OF PRESENT ILLNESS: This is a 51-year-old female with a pertinent past medical history of celiac and Crohn's disease who is presenting today with chronic diarrhea and vomiting for 15 days. The patient states the diarrhea started about 15 days ago with loose stool that became watery diarrhea about a week ago. She admits to going about 8-21 times a day. She states she has no relief with anything She denies any blood in her stool. She states about 4 days ago, her vomiting episode started and she describes it as a brownish plus black specks in color. She states the last 2 days her vomit has been clear in color. Patient states that she has Zofran at home which provides no relief. She states she has a decrease of appetite on the fear of the vomiting and diarrhea. Patient also admits to an abdominal pain that is sharp in her lower quadrant that radiates sometimes towards her thoracic region. Patient states that she does have a fentanyl patch and oxycodone at home which she uses to get relief from the abdominal pain. HOSPITAL COURSE: 1. Diarrhea patient was Imodium 2mg PRN as well as Lactobacillus 3x daily scheduled and we continued supportive therapy for EPEC with IV fluids and electrolyte replacement. Hypokalemia stable for 5 days before discharge. The patient had her infuse a port accessed on evening for her potassium IV, because she lost her IV site and the nurses couldn 't get another site. Per patient to use port, we discussed all the risks from multiple reaccess of the port and the patient still wanted the port accessed. The port couldn't be flushed the next day and it was deaccessed. The day before discharge, the patient's port to reaccessed the morning to have it flushed with herpain. We used an 1.5 aponte needle. The port was flushed successfully and was deaccessed once again.For the abdominal pain iy likely due to the chronic diarrhea patient also has underlying Crohn's disease. Patient does have ibuprofen 400 mg by mouth every 6 hours as needed for pain. Patient had an initial Leukocytosis that resolved. Patient remains afebrile since admission Because the patient's UA in the ER was positive for leukocyte esterase and WBCs with negative symptoms of dysuria, blood and urine culture were obtained. Both came back negative for growth. Patient's nausea was given Zofran 4 mg IV every 6 hours PRN.Patient continued her levothyroxine 300 mg by mouth daily at 6 AM. TSH levels were checked on admission and were wNL. Her hyperlipidemia we continued her Lipitor 20 mg by mouth at night and Depression/anxiety we continue with patient's Cymbalta 60 mg daily. DISPOSITION: Continue with supportive therapy, rehydration and electrolyte replacement as needed. DISCHARGE MEDICATIONS: Please see below. ALLERGIES: Please see below. PHYSICAL EXAMINATION ON DISCHARGE: VITAL SIGNS: Please see below. VITAL SIGNS: Please see below. GENERAL: resting comfortably at the time of assessment, sleeping, NAD HEENT: normocephalic, atraumatic CARDIOVASCULAR: RRR, normal S1/S2, no murmurs, rubs or gallops RESPIRATORY: lungs CTA bilaterally ABDOMINAL: bowel sounds present, soft, diffuse moderate to severe tenderness to light palpation to bilateral lower quadrants. no upper abdomen tenderness. EXTREMITIES: no LE edema NEUROLOGICAL: A&Ox3 PSYCHOLOGICAL: normal affect, answers questions appropriately. LABORATORY DATA: Please see below. IMAGING: EKG 01/26/17 SINUS RHYTHM NONSPECIFIC T-WAVE ABNORMALITY LAST TRACING ON 12/09/2014 AT 16:15:57, THERE IS NOW LESS ST-T ABNORMALITY Abdomnial CT 01/26/17 Impression: Essentially negative CT of the abdomen and pelvis except for diffuse gastric wall thickening. This is nonspecific and could merely be artifact from non distension, however, gastritis and neoplasm are also diagnostic considerations. There is a nonobstructive calculus in each kidney. There is no hydronephrosis. There are no ureteral calculi. There is no bowel distension or obstruction. No bowel wall thickening. No ascites or adenopathy. Half half half The previously there was a cyst in the pouch of Javier. This has resolved. ACTIVITY: As tolerated. DIET: Gluten-free diet DISCHARGE PLAN: 1. Diarrhea -due to enteropathogenic E.coli. stable significantly improved per patient. She is off IV fluid,s chemistries are stable significantly. The patient can be discharged today. Patient is advised to continue with by mouth oral intake and to eat lightly. Patient rates a planned and was eager to go home. 2. Hypokalemia - resolved. On the day of discharge the patient's potassium levels were 4.2 and has been stable for the last 5 days. Since patient's diarrhea is improving her potassium levels have been stable. She does not need a predischarge potassium. 3. Abdominal pain - likely due to the chronic diarrhea patient also has underlying Crohn's disease. Patient does have ibuprofen 400 mg by mouth every 6 hours as needed for pain. We'll continue to monitor patient daily. 4. Leukocytosis- resolved. No leukocytosis. Patient remains afebrile since admission. patient's UA in the ER was positive for leukocyte esterase and WBCs with negative symptoms of dysuria, or urinary frequency. blood and urine culture were obtained on admission and both were negative. 5. Nausea- improving per patient, patient is to continue Zofran 4 mg IV every 6 hours when necessary for nausea. 6. Hypothyroidism. Patient is to continue levothyroxine 300 mg by mouth daily at 6 AM. 7. Hyperlipidemia - continue with patient's Lipitor 20 mg 8. Depression/anxiety- continue with patient's Cymbalta 60 mg by mouth daily 10. History of celiac disease. Once patient is discharged he will follow up with Dr. Montero to get her Entyveo injection for this month DISCHARGE INSTRUCTIONS: 1. Follow-up with PCP, Dr. Monica Rojas, in 3-7 days 2. Follow-up with Dr. Montero to get Entyveo injection for this month ITEMS TO FOLLOWUP ON ON OUTPATIENT: 1. Follow-up with PCP, Dr. Monica Rojas, in 3-7 days 2. Follow-up with Dr. Montero to get Entyveo injection for this month DISCHARGE CONDITION: Stable. TIME SPENT ON DISCHARGE: Greater than 35 minutes. Vital Signs/I&Os Vital Signs Date Time Temp Pulse Resp B/P (MAP) Pulse Ox O2 Delivery O2 Flow Rate FiO2 01/31/17 09:59 18 01/31/17 08:00 97.3 87 120/65 (83) 96 Room Air I&O- Last 24 Hours up to 6 AM 02/01/17 06:00 Intake Total 360 ml Output Total 400 ml Balance -40 ml Laboratory Data Labs 24H Laboratory Tests 2 01/31/17 06:41: Anion Gap 3L, Glomerular Filtration Rate > 60.0, Blood Urea Nitrogen 7, Creatinine 0.77, Sodium Level 142, Potassium Level 4.2, Chloride Level 107, Carbon Dioxide Level 32, Calcium Level 9.5, Aspartate Amino Transf (AST/SGOT) 15 , Alanine Aminotransferase (ALT/SGPT) 32, Alkaline Phosphatase 118H, Total Bilirubin 0.2, Total Protein 6.4, Albumin 3.0L, Magnesium Level 2.4, Albumin/ Globulin Ratio 0.88L CBC/BMP Laboratory Tests 01/31/17 06:41 Red Blood Count 4.29, Mean Corpuscular Volume 92.3, Mean Corpuscular Hemoglobin 30.1, Mean Corpuscular Hemoglobin Concent 32.6, Red Cell Distribution Width 13.1 , Calcium Level 9.5, Aspartate Amino Transf (AST/SGOT) 15, Alanine Aminotransferase (ALT/SGPT) 32, Alkaline Phosphatase 118 H, Total Bilirubin 0.2 , Total Protein 6.4, Albumin 3.0 L Microbiology Microbiology 01/26/17 Blood Culture - Preliminary, Resulted No Growth after 72 hours. All specime... 01/26/17 Gastrointestinal Tract Panel (PCR) - Final, Complete Enteropathogenic E.coli 01/26/17 Urine Culture - Final, Complete Discharge Medications Scheduled (Entyvio) 300 Mg Inj, 300 MG IV ASDIRECTED, (Reported) EVERY 2 MONTHS, WAS DUE IN NOVEMBER BUT MISSED APPT Amphetamine/Dextroamphetamine (Adderall Xr 30 mg) 1 Cap Cap, 1 CAP PO DAILY, ( Reported) Atorvastatin Calcium (Atorvastatin Calcium) 20 Mg Tab, 20 MG PO QHS, (Reported) Cyanocobalamin (Cyanocobalamin) 1,000 Mcg/1 Ml Inj, 1,000 MCG IM 1XWK, (Reported ) THURSDAYS Duloxetine Hcl (Duloxetine HCl) 60 Mg Cap, 60 MG PO DAILY, (Reported) Fentanyl (Fentanyl) 75 Mcg Tdsy, 150 MCG TD Q3RD, (Reported) REMOVED 01/25/17 AND DID NOT REAPPLY Furosemide (Furosemide) 20 Mg Tab, 20 MG PO DAILY, (Reported) Lactobacillus Acidophilus (Bacid) 1 Tab Tab, 1 TAB PO TID, (Reported) Levothyroxine Sodium (Synthroid) 300 Mcg Tab, 300 MCG PO DAILY, (Reported) Multivitamins *[facility] STOCKED* (Thera M Plus *[facility] STOCKED*) 1 Tab Tab, 1 TAB PO QHS , (Reported) Scheduled PRN Ibuprofen (Ibuprofen) 200 Mg Tab, 400 MG PO Q6H PRN for PAIN / FEVER, (Reported) Ondansetron (Ondansetron Odt) 8 Mg Tab, 8 MG PO Q6H PRN for NAUSEA, (Reported) Oxycodone Hcl (Oxycodone HCl) 15 Mg Tab, 15 MG PO Q4H PRN for PAIN, (Reported) Allergies Coded Allergies: Budesonide (Verified Allergy, Intermediate, EYE SWELLING, 08/04/12) Penicillins (Verified Allergy, Intermediate, HIVES, 08/04/12) Wheat (Verified Allergy, Intermediate, CELIACS DISEASE, 09/06/11) Cephalexin (Verified Allergy, Unknown, 01/26/17) SWELLING Ciprofloxacin (Verified Allergy, Unknown, 01/26/17) SWELLING Gluten Meal (Verified Adverse Reaction, Intermediate, CELIACS DOSEASE, 08/04) Ketorolac Tromethamine (Verified Adverse Reaction, Intermediate, SEVERE HEADACHE, 05/12/13) GME ATTESTATION GME ATTESTATION My preceptor for this patient encounter was physically present in the building during the encounter and was fully available. As needed, all aspects of the patient interview, examination, medical decision making process, and medical care plan development were reviewed and approved by the preceptor. Preceptor is aware and concurs with the plan as stated in the body of this note and will attest to such by his/her cosignature. JERO CLIFTON DO Jan 31, 2017 12:06
== END 2017-01-31 11:55 | disposition home or self-care (01) | DRG 392 ==
LOC: M ED 07:26 → OBSVTOIN 14:36 → M ED INP 14:36 → M PED 17:19 → OBSVTOIN 01-31 11:27 → INTOOBSV 01-31 11:27
PROVIDERS: ADMIT Hospitalist; ATTEND Internal Medicine
DX: R19.7 Diarrhea, unspecified (principal); F41.9 Anxiety disorder, unspecified; R10.9 Unspecified abdominal pain; E03.9 Hypothyroidism, unspecified; E78.5 Hyperlipidemia, unspecified; Z79.899 Other long term (current) drug therapy; Z88.8 Allergy status to other drugs, medicaments and biological substances; Z88.0 Allergy status to penicillin; Z85.3 Personal history of malignant neoplasm of breast; E87.6 Hypokalemia; B96.29 Other Escherichia coli [E. coli] as the cause of diseases classified elsewhere; K90.0 Celiac disease

== ENCOUNTER → 2017-02-07 | Outpatient (CLI) | payer OTHER ==
[~2017-02-07] MED LIST changes: +ATOR1TAB21 PO; +DULO1CAP3 PO; +ISOVUE-370 76% 100ML VIAL (Q9967) As Ordered ONE; +LETR2.5T2 PO; +REGL10TA6 PO; +SYNT300T2 PO
--- NOTE | 2017-02-07 11:21 | REPMRS ---
Patient History The patient states she had a clinical breast exam in January 2017. Patient is postmenopausal and has history of cancer in the left breast at age 47. Family history of unknown cancer in mother at age 65. Malignant stereotatic breast biopsy of the left breast, March 06, 2013. Digital Mammo Screening Bilat: February 07, 2017 - Exam #: [id number] Bilateral CC and MLO view(s) were taken. Technologist: Yadi Yu, Technologist Prior study comparison: June 08, 2015, left breast diagnostic unilateral mammo, performed at [facility]. September 25, 2014, bilateral digital mammo screening bilat performed at [facility]. January 01, 2013, digital mammo diagnostic bilateral, performed at [facility]. FINDINGS: There are scattered fibroglandular densities. There is a benign centrally fat-containing spiculated nodule with some dystrophic calcification consistent with postoperative fat necrosis in the central left breast unchanged. There has been no change in the appearance of the mammogram from the prior studies. There is a mild amount of scattered fibroglandular density which is fairly symmetric. There is no interval development of dominant mass, architectural distortion, or clustered microcalcification suggestive of malignancy. ASSESSMENT: BI-RADS/ACR category 2 mammogram. Benign finding(s). Recommendation Routine screening mammogram in 1 year (for women over age 40). This mammogram was interpreted with the aid of an FDA-approved computer-aided dectection system. Electronically Signed By: Joseph Agarwal MD 02/07/17 [id number]
--- NOTE | 2017-02-07 16:20 | REP ---
Whole body radionuclide bone scan: History: Left breast carcinoma. Technique: 21.6 mCi technetium 99m MDP is injected and standard whole body imaging was acquired. Scintigraphic findings: There is a normal distribution of skeletal tracer with uptake in bilateral kidneys and in the urinary bladder. No abnormal skeletal uptake is seen. There is no evidence to suggest skeletal metastasis. Impression: No abnormal skeletal uptake to suggest metastasis. Signed by Jeff Agarwal MD 02/07/2017 05:31 P
--- NOTE | 2017-02-08 05:09 | REP ---
Clinical: History of breast cancer. Technique: Axial contrast enhanced images from the thoracic inlet to the upper abdomen using 100 ml Isovue 370 intravenous contrast material with coronal and sagittal re-formations. Comparison: 01/07/2015. Findings: The bilateral lung torres are relatively well aerated, symmetric and essentially clear. A 2 mm noncalcified granuloma in the periphery of the left upper lobe (image 35) is identified without further significant consolidation, nodule or mass lesion appreciated. No pleural effusion or pneumothorax. Tracheobronchial tree is patent. No axillary, hilar, or mediastinal adenopathy. [id number] in the right anterior chest wall extends into the superior vena cava. Mediastinum demonstrates normal thoracic aorta, pulmonary vasculature and heart/pericardium. Surrounding musculoskeletal structures without focal osseous abnormalities. Limited upper abdomen demonstrates normal bilateral adrenal glands and evidence of prior cholecystectomy. Impression: Solitary 2 mm noncalcified nodule in the left upper lobe represents a change compared to 12/18/2014. Finding may represent a benign chronic granuloma however or significant pathology cannot be excluded. Consider reevaluation in 6-12 months. Signed by Freddy Hammond MD 02/08/2017 05:00 A
== END ==
LOC: M RAD 08:47
PROVIDERS: ATTEND Internal Medicine Medical Oncology
DX: Z85.3 Personal history of malignant neoplasm of breast (principal)

== ENCOUNTER 2017-02-20 16:29 | Emergency (ER) | payer OTHER ==
[~2017-02-20] VITALS: Ht 175.3 cm; Wt 80.9 kg
[~2017-02-20 16:29] MED LIST changes: -ISOVUE-370 76% 100ML VIAL (Q9967) As Ordered ONE; -LETR2.5T2 PO; -REGL10TA6 PO
[2017-02-20 16:30] VITALS: BP 142/87
[2017-02-20] MEDS ORDERED: LETR2.5T2 PO (16:41)
== END 2017-02-20 17:12 | disposition left against medical advice (07) ==
LOC: M ED 16:29
DX: Z53.21 Procedure and treatment not carried out due to patient leaving prior to being seen by health care provider (principal)

== ENCOUNTER 2017-02-23 09:55 | Emergency (ER) | payer OTHER ==
[~2017-02-23] VITALS: Ht 175.3 cm; Wt 80.9 kg
[~2017-02-23 09:55] MED LIST changes: +LETR2.5T2 PO
[2017-02-23] MEDS ORDERED: NS 1,000 ML IV ONE (10:45)
[2017-02-23 11:20] LABS: BASO # 0.1 10^3/uL (0.0-0.2); BASO % 0.6 % (0.0-1.0); EOS # 0.1 10^3/uL (0.0-0.50); EOS % 0.9 % (0.0-3.0); IMMATURE GRANULOCYTE % 0.2 % (0-0); LYMPH # 3.5 10^3/uL (1.5-4.5); LYMPH % 38.5 % (24.0-44.0); MEAN CORPUSCULAR HEMOGLOBIN 29.6 pg (27.0-33.0); MEAN CORPUSCULAR HGB CONC 32.9 g/dl (32.0-36.5); MEAN CORPUSCULAR VOLUME 89.7 fl (80.0-96.0); MONO # 0.5 10^3/uL (0.0-0.8); MONO % 5.6 % (0.0-5.0); NEUTROPHILS # 4.9 10^3/uL (1.8-7.7); NEUTROPHILS % 54.2 % (36.0-66.0); PLATELET COUNT, AUTOMATED 335 10^3/uL (150-450); RED CELL DISTRIBUTION WIDTH 13.9 % (11.5-14.5); WHITE BLOOD COUNT 9.1 10^3/uL (4.0-10.0)
[2017-02-23 11:31] LABS: CALCIUM OXALATE CRYSTALS SMALL; TRIPLE PHOSPHATE CRYSTALS SMALL
[2017-02-23 12:07] LABS: ALBUMIN/GLOBULIN RATIO 0.81 (1.00-1.93); ALKALINE PHOSPHATASE 125 U/L (45-117); ALT/SGPT 36 U/L (12-78); ANION GAP 3 MEQ/L (8-16); AST/SGOT 18 U/L (15-37); BILIRUBIN,DIRECT < 0.1 MG/DL (0.0-0.2); BILIRUBIN,TOTAL 0.2 MG/DL (0.2-1.0); BLOOD UREA NITROGEN 10 MG/DL (7-18); CALCIUM LEVEL 9.2 MG/DL (8.5-10.1); CARBON DIOXIDE LEVEL 36 MEQ/L (21-32); CHLORIDE LEVEL 104 MEQ/L (98-107); CREATININE FOR GFR 0.71 MG/DL (0.55-1.02); GLOMERULAR FILTRATION RATE > 60.0 (>51); GLUCOSE, FASTING 101 MG/DL (70-105); PHOSPHORUS LEVEL 2.8 MG/DL (2.5-4.9); POTASSIUM SERUM 2.8 MEQ/L (3.5-5.1); SODIUM LEVEL 143 MEQ/L (136-145); TOTAL PROTEIN 6.7 GM/DL (6.4-8.2)
[2017-02-23 12:12] VITALS: BP 123/52
[2017-02-23] MEDS ORDERED: METOCLOPRAMIDE INJ 10MG/2ML VIAL (J2765) IV ONE (12:15)
[2017-02-23] MEDS ORDERED: MORPHINE 2 MG/ML 1ML SYRINGE IV ONE (12:15)
--- NOTE | 2017-02-23 12:24 | REP ---
ABDOMINAL SERIES: Four views. HISTORY: Abdominal pain. FINDINGS: Upright chest radiograph shows a right-sided [id number]-[id number] with its tip in the expected location of the superior vena cava. The lungs are well inflated and clear. The pleural angles are sharp. There is no evidence of infiltrate or free subdiaphragmatic air. Heart is not enlarged. Supine and erect views of the abdomen show clips in the right upper quadrant post cholecystectomy. There are two fairly large intrarenal calculi on the right. The largest of these measures 9 mm. In addition, there is a 9 mm calcification overlying the right psoas, which is likely a right mid ureteral stone. There are phleboliths in the pelvis. There are a few small loops of nondilated small bowel in the midabdomen. Bowel gas pattern is otherwise unremarkable. IMPRESSION: Urinary tract calculi with intrarenal calculi right kidney and a probable right mid ureteral calculus 9 mm in diameter. Signed by Jeff Agarwal MD 02/23/2017 01:19 P
[2017-02-23] MEDS ORDERED: POTASSIUM CHLORIDE 10% LIQ 20 MEQ/15 ML UDC PO ONE (12:45)
[2017-02-23] MEDS ORDERED: KCL 10MEQ IN 100ML SWI (KRUN) 10 MEQ in APPROPRIATE DILUENT 1 EA IV ONE ×2 (12:45)
[2017-02-23] MEDS ORDERED: KCL 20MEQ in NS 1000ML 1,000 ML IV SCH (13:15)
[2017-02-23] MEDS ORDERED: MORPHINE 4 MG/ML 1ML SYRINGE IV ONE (15:15)
--- NOTE | 2017-02-23 15:56 | REP ---
Urinary tract sonography: History: Evaluate for hydronephrosis. Right ureteral colic. Findings: Scanning at the level of the urinary bladder shows no abnormality. Renal cortical echogenicity pattern is normal and renal contours are smooth bilaterally. There is no evidence of hydronephrosis on either side. There is a 1.1 cm hyperechoic shadowing focus in the lower pole of the right kidney which is felt to correspond with plain film finding of a large calculus here. No hydronephrosis seen. Right kidney measures 11.8 x 5.3 x 5.0 cm. Left renal dimensions are 12.2 x 5.5 x 5.2 cm. No evidence of mass, cyst or other calculus seen. Impression: Findings consistent with intrarenal nephrolithiasis right kidney. No hydronephrosis seen on either side. Signed by Jeff Agarwal MD 02/23/2017 04:13 P
[2017-02-23] MEDS ORDERED: KCL 20MEQ in NS 1000ML 1,000 ML IV ONE (16:13)
[2017-02-23] MEDS ORDERED: REGL10TA6 PO (16:15)
--- NOTE | 2017-02-24 07:20 | ECGEPIP ---
Stationary ECG Study [facility] - ED Test Date: 2017-02-23 Pat Name: MAUREEN PORTILLO Department: Room: - Gender: F [employer]: AF : 1965 Requested By: JOYCE CONNOLLY Order Number: [id number] Reading MD: Janina Will Measurements Intervals Lindsey Rate: 71 P: 8 MA: 149 QRS: 49 QRSD: 104 T: 54 QT: 416 QTc: 454 Interpretive Statements SINUS RHYTHM NONSPECIFIC T-WAVE ABNORMALITY DELAYED R PROGRESSION LOW VOLTAGE LIMB SIMILAR 01/26/17 Electronically Signed On 02-24-2017 7:20:12 EDT by Janina Will
== END 2017-02-23 16:35 | disposition home or self-care (01) ==
LOC: M ED 09:55
DX: R94.31 Abnormal electrocardiogram [ECG] [EKG] (principal); E86.0 Dehydration; R10.32 Left lower quadrant pain; R11.2 Nausea with vomiting, unspecified; R19.7 Diarrhea, unspecified; I10 Essential (primary) hypertension; Z87.442 Personal history of urinary calculi; Z85.9 Personal history of malignant neoplasm, unspecified; E05.00 Thyrotoxicosis with diffuse goiter without thyrotoxic crisis or storm; Z86.19 Personal history of other infectious and parasitic diseases; K50.90 Crohn's disease, unspecified, without complications; Z86.69 Personal history of other diseases of the nervous system and sense organs; Z87.01 Personal history of pneumonia (recurrent); Z86.711 Personal history of pulmonary embolism; Z87.19 Personal history of other diseases of the digestive system; Z87.891 Personal history of nicotine dependence; N20.0 Calculus of kidney; Z79.899 Other long term (current) drug therapy; Z88.0 Allergy status to penicillin; Z88.8 Allergy status to other drugs, medicaments and biological substances; Z88.1 Allergy status to other antibiotic agents; Z91.018 Allergy to other foods
CPT/HCPCS: 74022; 76775; 80048; 80076; 81001; 83605; 83690; 83735; 84100; 84132; 84134; 85025; 87040; 93005; 93041; 96374; 96375; 96376; 99284; J2765

== ENCOUNTER → 2017-02-28 | Outpatient (REF) | payer OTHER ==
[~2017-02-28] MED LIST changes: +REGL10TA6 PO
== END ==
LOC: M LAB REF 15:40
PROVIDERS: ATTEND Internal Medicine Gastroenterology
DX: Z00.00 Encounter for general adult medical examination without abnormal findings (principal)

== ENCOUNTER 2017-03-20 12:02 | Outpatient (CLI) | payer OTHER ==
[~2017-03-20 12:02] MED LIST changes: +SODIUM CHLORIDE 0.9% INJ 10 ML SYR IV SCH
[2017-03-20] MEDS ORDERED: ACETAMINOPHEN TAB 650MG DOSE (2X325MG) PO ONE (13:00)
[2017-03-20] MEDS ORDERED: diphenhydrAMINE 25 MG CAP PO ONE (13:00)
[2017-03-20] MEDS ORDERED: VEDOLIZUMAB 300 MG in NS 250 ML IV ONE (13:00)
== END 2017-03-20 13:45 | disposition home or self-care (01) ==
LOC: M INFU 12:02
PROVIDERS: ATTEND Internal Medicine Gastroenterology
DX: K50.00 Crohn's disease of small intestine without complications (principal); Z79.899 Other long term (current) drug therapy; Z88.1 Allergy status to other antibiotic agents; Z88.8 Allergy status to other drugs, medicaments and biological substances; Z88.0 Allergy status to penicillin; Z91.018 Allergy to other foods
CPT/HCPCS: 96413; J3380

== ENCOUNTER 2017-04-04 12:51 | Outpatient (CLI) | payer OTHER ==
[~2017-04-04 12:51] MED LIST changes: +ACETAMINOPHEN TAB 650MG DOSE (2X325MG) PO ONE; +diphenhydrAMINE 25 MG CAP PO ONE
[2017-04-04] MEDS ORDERED: VEDOLIZUMAB 300 MG in NS 250 ML IV ONE (13:00)
== END 2017-04-04 14:00 | disposition home or self-care (01) ==
LOC: M INFU 12:51
PROVIDERS: ATTEND Internal Medicine Gastroenterology
DX: K50.90 Crohn's disease, unspecified, without complications (principal); F17.210 Nicotine dependence, cigarettes, uncomplicated; Z88.0 Allergy status to penicillin; Z88.8 Allergy status to other drugs, medicaments and biological substances; Z88.1 Allergy status to other antibiotic agents; Z91.018 Allergy to other foods; Z79.891 Long term (current) use of opiate analgesic; Z79.899 Other long term (current) drug therapy
CPT/HCPCS: 96365; J3380

== ENCOUNTER 2017-05-15 10:54 | Outpatient (CLI) | payer OTHER ==
[2017-05-15] MEDS: ACETAMINOPHEN TAB 650MG DOSE (2X325MG) PO (10:45)
[2017-05-15] MEDS: diphenhydrAMINE 25 MG CAP PO (10:45)
[2017-05-15] MEDS: VEDOLIZUMAB 300 MG in NS 250 ML IV (11:04)
[2017-05-15] MEDS: SODIUM CHLORIDE 0.9% INJ 10 ML SYR IV (11:43)
== END 2017-05-15 11:50 | disposition home or self-care (01) ==
LOC: M INFU 10:54
DX: K50.90 Crohn's disease, unspecified, without complications (principal); Z88.8 Allergy status to other drugs, medicaments and biological substances; Z88.0 Allergy status to penicillin; Z91.018 Allergy to other foods; Z88.1 Allergy status to other antibiotic agents; Z79.899 Other long term (current) drug therapy
CPT/HCPCS: 96365

== ENCOUNTER 2017-05-24 10:13 | Day surgery (SDC) | payer OTHER ==
[2017-05-24] MEDS: NS 1,000 ML IV (11:54)
[2017-05-24] MEDS ORDERED: LIDOCAINE 2% INJ 100 MG/5 ML SDV (FOR ANES.) As Ordered (12:08)
[2017-05-24] MEDS ORDERED: PROPOFOL 200 MG/20 ML VIAL As Ordered (12:08)
[2017-05-24] MEDS ORDERED: fentaNYL 100 MCG/2 ML INJECTION (J3010) As Ordered (12:22)
== END 2017-05-24 13:10 | disposition home or self-care (01) ==
LOC: M OPP 10:13
DX: K50.918 Crohn's disease, unspecified, with other complication (principal); K64.0 First degree hemorrhoids; K57.30 Diverticulosis of large intestine without perforation or abscess without bleeding; D12.4 Benign neoplasm of descending colon; J44.9 Chronic obstructive pulmonary disease, unspecified; E07.9 Disorder of thyroid, unspecified; Z79.891 Long term (current) use of opiate analgesic; Z79.899 Other long term (current) drug therapy; Z88.0 Allergy status to penicillin; Z88.1 Allergy status to other antibiotic agents; Z88.8 Allergy status to other drugs, medicaments and biological substances; Z91.018 Allergy to other foods; Z85.3 Personal history of malignant neoplasm of breast
CPT/HCPCS: 45385

== ENCOUNTER → 2017-08-30 | Outpatient (CLI) | payer OTHER | LOC: M RAD 09:39 | DX: Z85.3 Personal history of malignant neoplasm of breast (principal); R92.0 Mammographic microcalcification found on diagnostic imaging of breast ==

== ENCOUNTER → 2017-10-04 | Outpatient (REF) | payer OTHER, MEDICAID ==
[2017-10-04 19:05] LABS: FERRITIN 11 NG/ML (8-252); IRON (FE) 30 UG/DL (50-170); PERCENT SATURATION 11.4 % (13.2-45.0); TOTAL IRON BINDING CAPACITY 263 UG/DL (250-450)
== END ==
LOC: M LAB REF 18:08
DX: C50.212 Malignant neoplasm of upper-inner quadrant of left female breast (principal); Z17.0 Estrogen receptor positive status [ER+]; Z79.899 Other long term (current) drug therapy
CPT/HCPCS: 83550

== ENCOUNTER → 2017-10-10 | Outpatient (CLI) | payer OTHER ==
[~2017-10-10] MED LIST changes: -/WARF5TA OR; -ACET500C OR; -ACET50TA PO; -ACETAMINOPHEN PO; -ACETAMINOPHEN TAB 650MG DOSE (2X325MG) PO ONE; -ADDE10CA3 OR; -ADDE1TAB22 PO; -ADDE30CA3 PO; -ALDA100T OR; -ALDA25TA2 PO; -AMPH30TA PO; -ANUSHCSU PR; -ARGININE PO; -ASAC800T2 PO; -ASAC800T3 PO; -ASACOL PO; -ATOR1TAB21 PO; -BACITAB PO; -BACT800T OR; -BACTDSTA PO; -BELLADONNA PO; -BIOT50004 PO; -BUPR15TASR PO; -CALC250T PO; -CARA1TAB2 PO; -CEPH2CAP PO; -CHOLESTYRAMINE PO; -CIPR100T4 OR; -CIPR25SS OR; -CIPR500T89 PO; -COEN100C2 PO; -COLA100C5 PO; -COLA50CA3 PO; -COQ-100C PO; -CYAN1000 IM; -CYAN1000VL IM; -DELZ400C PO; -DICY10CA PO; -DICY10CA2 PO; -DICY10CA69 PO; -DICY1CAP8 PO; -DICY20TA11 PO; -DIFI200T PO; -DULO1CAP3 PO; -DULO30CA PO; -ENTY1INJ IV; -FEMA2.5T4 PO; -FENT10PA TD; -FENT75PA TD; -FIRS1SOL3 PO; -FLAG500T OR; -FLAG500T PO; -FOLI1TAB OR; -FOLI1TAB86 PO; -FOLITAB11 PO; -FURO20TA2 PO; -HYDR25TA6 OR; -HYDR25TAB PO; -HYDRO50TAB PO; -IBUP200C PO; -IBUPOTC PO; +ISOVUE-370 76% 100ML VIAL (Q9967) As Ordered; -K-TA10TA PO; -LETR2.5T2 PO; -LEVA1TAB2 PO; -LEVO125T3 PO; -LEVO125T41 PO; -LEVO137T2 PO; -LEVO200T OR; -LEVO200T31 PO; -LEVO2TA OR; -LEVO50TA45 PO; -LOMO2.5T PO; -LOMOTA PO; -LOPE2TAB3 PO; -MAG400TA PO; -MAGN500T2 OR; -METR1TAB66 PO; -MS C30TA2 OR; -MULTCHW14 PO; -MULTIVIT PO; -OCEA0.654; -OMEP20TA7 OR; -ONDA8TAB8 PO; -OXY IR PO; -OXYC-405 PO; -OXYC15TA76 PO; -OXYC30TA84 PO; -OXYCODONE PO; -PERC5TAB8 OR; -PERC7.5T12 PO; -PERC7.5T8 OR; -PHENOBARBITAL PO; -POTA10CA PO; -POTA20LI2 PO; -POTA20TA2 OR; -PRED10TA2 OR; -PRED1TAB32 PO; -PRED20TA PO; -PRED20TAB PO; -PRED50TA2 PO; -PRESTIQUE PO; -PRIL20CA9 PO; -PRISTIQ PO; -PROBCAP4 PO; -PROBIOTICS PO; -PROT1TAB2 PO; -QUES4POW2 PO; -REGL10TA6 PO; -SENO8.6T9 PO; -SERT-141 PO; -SODIUM CHLORIDE 0.9% INJ 10 ML SYR IV SCH; -SYNT25TA PO; -SYNT300T2 PO; -TUMS500C PO; -TYLE325T5 PO; -TYLE650T30 PO; -VANC250C2 PO; -VIT D 4000 PO; -VITA10006 PO; -VITA100T OR; -VITA25003 IM; -VITACAP31 PO; -VITAD1000T PO; -VITAMIN B 12; -VITD2 PO; -VITMTA PO; -WELL150T PO; -XANA0.5T PO; -ZOFR8TAB PO; -[UNRECOGNIZED DRUG - OTHER] PO; -amphetamine salts PO; -diphenhydrAMINE 25 MG CAP PO ONE; -lomotil PO
== END ==
LOC: M RAD 09:48
DX: C50.919 Malignant neoplasm of unspecified site of unspecified female breast (principal); R91.1 Solitary pulmonary nodule
CPT/HCPCS: Q9967

== ENCOUNTER → 2017-10-13 | Outpatient (CLI) | payer OTHER ==
[~2017-10-13] MED LIST changes: -ISOVUE-370 76% 100ML VIAL (Q9967) As Ordered; +PROHANCE 279.3MG/ML 15ML VIAL (A9576) As Ordered; +PROHANCE 279.3MG/ML 5ML VIAL (A9576) As Ordered
== END ==
LOC: M RAD 07:32
DX: R92.1 Mammographic calcification found on diagnostic imaging of breast (principal); N63.11 Unspecified lump in the right breast, upper outer quadrant; Z85.3 Personal history of malignant neoplasm of breast
CPT/HCPCS: A9576

== ENCOUNTER → 2017-11-02 | Outpatient (REF) | payer OTHER, MEDICAID ==
[2017-11-02 16:42] LABS: INR 0.99; PROTHROMBIN TIME 13.2 SECONDS (12.1-14.4)
[2017-11-02 16:43] LABS: PARTIAL THROMBOPLASTIN TIME 30.5 SECONDS (25.4-37.6)
[2017-11-05 08:57] LABS: CA 27.29 35.4 U/mL (0.0-38.6)
== END ==
LOC: M LAB REF 16:20
DX: Z17.0 Estrogen receptor positive status [ER+] (principal); C50.212 Malignant neoplasm of upper-inner quadrant of left female breast; Z86.711 Personal history of pulmonary embolism; K90.0 Celiac disease; M81.0 Age-related osteoporosis without current pathological fracture

== ENCOUNTER 2017-11-23 06:33 | Day surgery (SDC) | payer OTHER, MEDICAID ==
[2017-11-23] MEDS ORDERED: LR 1,000 ML IV ×2 (06:45→14:30)
[2017-11-23] MEDS ORDERED: LIDOCAINE 1% MDV 20ML VIAL SQ (06:45)
[2017-11-23] MEDS: LIDOCAINE 5% (LIDODERM) PATCH TD (07:00)
[2017-11-23] MEDS ORDERED: LIDOCAINE 1% MDV 20ML VIAL As Ordered (08:02)
[2017-11-23] MEDS ORDERED: diazePAM 5 MG TAB As Ordered (08:13)
[2017-11-23] MEDS ORDERED: diazePAM 5 MG TAB PO (08:15)
[2017-11-23] MEDS ORDERED: ONDANSETRON 4MG/2ML VIAL (J2405) As Ordered (09:03)
[2017-11-23] MEDS ORDERED: LIDOCAINE 2% INJ 100 MG/5 ML SDV (FOR ANES.) As Ordered (09:03)
[2017-11-23] MEDS ORDERED: dexameTHASONE 4 MG/ML 1ML VIAL (J1100) As Ordered ×2 (09:03)
[2017-11-23] MEDS ORDERED: ROCURONIUM BROMIDE 50 MG/5 ML VIAL As Ordered (09:03)
[2017-11-23] MEDS ORDERED: PROPOFOL 200 MG/20 ML VIAL As Ordered (09:03)
[2017-11-23] MEDS ORDERED: fentaNYL 250 MCG/5 ML INJECTION (J3010) As Ordered (09:08)
[2017-11-23] MEDS ORDERED: MIDAZOLAM INJ 2 MG/2 ML VIAL (J2250) As Ordered (09:08)
[2017-11-23] MEDS: METHYLENE BLUE 0.5% (5MG/ML) 10 ML AMP (PROVAYBLUE)(Q9968 PER 1MG) As Ordered (11:45)
[2017-11-23] MEDS ORDERED: NEOSTIGMINE 10 MG/10 ML VIAL (J2710) As Ordered (13:45)
[2017-11-23] MEDS ORDERED: GLYCOPYRROLATE INJ 0.2 MG/ML 2 ML VIAL As Ordered (13:45)
[2017-11-23] MEDS: BUPIVACAINE HCL 0.25% 30 ML VIAL As Ordered (13:55)
[2017-11-23] MEDS ORDERED: fentaNYL 100 MCG/2 ML INJECTION (J3010) As Ordered (14:18)
[2017-11-23] MEDS: fentaNYL 100 MCG/2 ML INJECTION (J3010) IV ×4 (14:20→14:35)
[2017-11-23] MEDS ORDERED: ONDANSETRON 4MG/2ML VIAL (J2405) IV (14:30)
[2017-11-23] MEDS: HYDROMORPHONE HCL 0.5 MG/ 0.5 ML SYRINGE (J1170 PER 1) IV ×5 (14:45→15:20)
[2017-11-23] MEDS ORDERED: HYDROMORPHONE HCL 0.5 MG/ 0.5 ML SYRINGE (J1170 PER 1) As Ordered ×2 (14:45→14:50)
[2017-11-23] MEDS ORDERED: oxyCODONE 5MG TAB PO (15:00)
[2017-11-26] MEDS ORDERED: FENTANYL REMOVAL DOCUMENTATION MISC XX (05:00)
[2017-11-26] MEDS ORDERED: fentaNYL 75 MCG/HR PATCH TOP (05:00)
== END 2017-11-23 17:20 | disposition home or self-care (01) ==
LOC: M SDC 06:33
DX: C50.411 Malignant neoplasm of upper-outer quadrant of right female breast (principal); Z17.0 Estrogen receptor positive status [ER+]; Z88.1 Allergy status to other antibiotic agents; Z88.8 Allergy status to other drugs, medicaments and biological substances; K90.0 Celiac disease; Z86.711 Personal history of pulmonary embolism; Z79.899 Other long term (current) drug therapy
CPT/HCPCS: 19125

== ENCOUNTER → 2017-12-22 | Outpatient (CLI) | payer OTHER, MEDICAID | LOC: M CARPUL 10:33 | DX: C50.212 Malignant neoplasm of upper-inner quadrant of left female breast (principal) | CPT/HCPCS: 93306 ==

== ENCOUNTER 2018-02-12 14:46 | Outpatient (CLI) | payer OTHER, MEDICAID ==
[2018-02-12] MEDS: diphenhydrAMINE 25 MG CAP PO (15:50)
[2018-02-12] MEDS: ACETAMINOPHEN TAB 650MG DOSE (2X325MG) PO (15:50)
[2018-02-12] MEDS ORDERED: SODIUM CHLORIDE 0.9% INJ 10 ML SYR IV (23:30)
[2018-02-12] MEDS: SODIUM CHLORIDE 0.9% INJ 10 ML SYR IV (23:53)
== END 2018-02-13 00:02 | disposition home or self-care (01) ==
LOC: M OPCLI4PV 02-13 00:02 → M MSPAV 15:16
DX: D64.81 Anemia due to antineoplastic chemotherapy (principal); Z88.8 Allergy status to other drugs, medicaments and biological substances; Z88.1 Allergy status to other antibiotic agents; Z88.0 Allergy status to penicillin
CPT/HCPCS: 36430

== ENCOUNTER 2018-04-17 13:24 | Emergency (ER) | payer OTHER, MEDICAID ==
[2018-04-17 14:37] LABS: BASO # 0.1 10^3/uL (0.0-0.2); BASO % 0.4 % (0.0-1.0); EOS % 0.1 % (0.0-3.0); HEMATOCRIT 35.7 % (36.0-47.0); HEMOGLOBIN 11.4 g/dl (12.0-15.5); IMMATURE GRANULOCYTE % 2.2 % (0-3.0); LYMPH # 3.9 10^3/uL (1.5-4.5); MEAN CORPUSCULAR HEMOGLOBIN 29.4 pg (27.0-33.0); MEAN CORPUSCULAR HGB CONC 31.9 g/dl (32.0-36.5); MONO # 0.8 10^3/uL (0.0-0.8); NEUTROPHILS # 6.5 10^3/uL (1.8-7.7); NEUTROPHILS % 56.3 % (36.0-66.0); PLATELET COUNT, AUTOMATED 138 10^3/uL (150-450); RED BLOOD COUNT 3.88 10^6/uL (4.00-5.40); RED CELL DISTRIBUTION WIDTH 15.1 % (11.5-14.5); WHITE BLOOD COUNT 11.6 10^3/uL (4.0-10.0)
[2018-04-17] MEDS: NS 1,000 ML IV (14:50)
[2018-04-17 14:51] LABS: INR 0.98; PROTHROMBIN TIME 13.1 SECONDS (12.1-14.4)
[2018-04-17] MEDS: MORPHINE 4 MG/ML 1ML VIAL/SYRINGE (J2270) IV ×2 (14:51→17:02)
[2018-04-17] MEDS: PANTOPRAZOLE 40MG INJ (PROTONIX) (C9113) IV (14:52)
[2018-04-17] MEDS: PROMETHAZINE INJ 25 MG/ML VIAL (J2550) IV (14:52)
[2018-04-17 15:01] LABS: ALBUMIN 3.3 GM/DL (3.2-5.2); ALKALINE PHOSPHATASE 95 U/L (45-117); ALT/SGPT 32 U/L (12-78); ANION GAP 8 MEQ/L (8-16); AST/SGOT 14 U/L (7-37); BILIRUBIN,DIRECT < 0.1 MG/DL (0.0-0.2); BILIRUBIN,TOTAL < 0.1 MG/DL (0.2-1.0); BLOOD UREA NITROGEN 9 MG/DL (7-18); CALCIUM LEVEL 8.8 MG/DL (8.5-10.1); CARBON DIOXIDE LEVEL 26 MEQ/L (21-32); CHLORIDE LEVEL 110 MEQ/L (98-107); CREATININE FOR GFR 0.77 MG/DL (0.55-1.30); GLOMERULAR FILTRATION RATE > 60.0 (>51); GLUCOSE, FASTING 108 MG/DL (70-100); LIPASE 90 U/L (73-393); POTASSIUM SERUM 3.1 MEQ/L (3.5-5.1); SODIUM LEVEL 144 MEQ/L (136-145); TOTAL PROTEIN 6.3 GM/DL (6.4-8.2)
[2018-04-17 15:50] LABS: KETONE, URINE AUTO RFX NEGATIVE (NEGATIVE); LEUKOCYTE ESTERASE UR AUTO RFX NEGATIVE (NEGATIVE); MUCUS, URINE RFX SMALL (NEGATIVE); NITRITE, URINE AUTO RFX NEGATIVE (NEGATIVE); RBC, URINE AUTO RFX 5 /HPF (0-3); SPECIFIC GRAVITY UR AUTO RFX 1.021 (1.002-1.035); SQUAM EPITHELIAL CELL UR AURFX 0 /HPF (0-6); WBC, URINE AUTO RFX 3 /HPF (0-3)
[2018-04-17] MEDS: POTASSIUM CHLORIDE 10 MEQ SR TABLET PO (17:01)
[2018-04-17] MEDS: OXYCODONE/APAP 5MG/325MG(BULK FOR ED) 1 TABLET PO (18:39)
[2018-04-17] MEDS: SODIUM CHLORIDE 0.9% INJ 10 ML SYR IV (18:47)
== END 2018-04-17 18:58 | disposition home or self-care (01) ==
LOC: M ED 13:24
DX: R11.2 Nausea with vomiting, unspecified (principal); R19.7 Diarrhea, unspecified; F41.9 Anxiety disorder, unspecified; Z85.43 Personal history of malignant neoplasm of ovary; Z87.891 Personal history of nicotine dependence; Z82.49 Family history of ischemic heart disease and other diseases of the circulatory system; Z79.899 Other long term (current) drug therapy; Z88.1 Allergy status to other antibiotic agents; Z88.0 Allergy status to penicillin; Z88.8 Allergy status to other drugs, medicaments and biological substances; Z91.018 Allergy to other foods
CPT/HCPCS: C9113

== ENCOUNTER → 2018-06-08 | Outpatient (CLI) | payer OTHER, MEDICAID ==
[~2018-06-08] MED LIST changes: +/WARF5TA OR; +ACET500C OR; +ACET50TA PO; +ACETAMINOPHEN PO; +ADDE10CA3 OR; +ADDE10TA PO; +ADDE1TAB22 PO; +ADDE30CA3 PO; +ALDA100T OR; +ALDA25TA2 PO; +AMPH30CA PO; +AMPH30TA PO; +ANUSHCSU PR; +ARGININE PO; +ASAC800T2 PO; +ASAC800T3 PO; +ASACOL PO; +ATOR1TAB21 PO; +ATOR40TA75 PO; +BACITAB PO; +BACT800T OR; +BACTDSTA PO; +BELLADONNA PO; +BIOT50004 PO; +BUPR15TASR PO; +CALC250T PO; +CARA1TAB2 PO; +CEPH2CAP PO; +CHOLESTYRAMINE PO; +CIPR100T4 OR; +CIPR25SS OR; +CIPR500T89 PO; +COEN100C2 PO; +COLA100C5 PO; +COLA50CA3 PO; +COQ-100C PO; +CYAN1000 IM; +CYAN1000VL IM; +DELZ400C PO; +DEXA4TA PO; +DICY10CA PO; +DICY10CA2 PO; +DICY10CA69 PO; +DICY1CAP8 PO; +DICY20TA11 PO; +DIFI200T PO; +DOXY-350 PO; +DULO1CAP3 PO; +DULO30CA PO; +DURA75DI2 TOP; +ENTY1INJ IV; +FEMA2.5T4 PO; +FENT10PA TD; +FENT1DIS35 TD; +FENT75PA TD; +FIRS50SO PO; +FLAG500T OR; +FLAG500T PO; +FOLI1TAB OR; +FOLI1TAB86 PO; +FOLITAB11 PO; +FURO20TA2 PO; +GASTROGRAFIN SOLUTION 30ML (Q9963) As Ordered ONE; +HYDR25TA6 OR; +HYDR25TAB PO; +HYDRO50TAB PO; +IBUP200C PO; +IBUPOTC PO; +ISOVUE-370 76% 100ML VIAL (Q9967) As Ordered ONE; +K-TA10TA PO; +KLOR10TA76 PO; +LETR2.5T2 PO; +LEVA1TAB2 PO; +LEVO125T3 PO; +LEVO125T41 PO; +LEVO137T2 PO; +LEVO200T OR; +LEVO200T31 PO; +LEVO2TA OR; +LEVO50TA45 PO; +LIDO1PAD13 TOP; +LOMO2.5T PO; +LOMOTA PO; +LOPE2TAB3 PO; +MAG400TA PO; +MAGN500T2 OR; +METR-201 PO; +MS C30TA2 OR; +MULTCHW14 PO; +MULTIVIT PO; +OCEA0.654; +OMEP20TA7 OR; +ONDA8TAB8 PO; +OXY IR PO; +OXYC-405 PO; +OXYC15TA76 PO; +OXYC30TA84 PO; +OXYCODONE PO; +PERC5TAB8 OR; +PERC7.5T12 PO; +PERC7.5T8 OR; +PHENOBARBITAL PO; +POTA20LI2 PO; +POTA20TA2 OR; +PRED10TA2 OR; +PRED1TAB32 PO; +PRED20TA PO; +PRED20TAB PO; +PRED50TA2 PO; +PRESTIQUE PO; +PRIL20CA9 PO; +PRISTIQ PO; +PROBCAP4 PO; +PROBIOTICS PO; -PROHANCE 279.3MG/ML 15ML VIAL (A9576) As Ordered; -PROHANCE 279.3MG/ML 5ML VIAL (A9576) As Ordered; +PROT1TAB2 PO; +QUES4POW2 PO; +REGL10TA6 PO; +SENO8.6T9 PO; +SERT-141 PO; +SYNT25TA PO; +SYNT300T2 PO; +TRIM100T10 PO; +TUMS500C PO; +TYLE325T5 PO; +TYLE650T30 PO; +VANC250C2 PO; +VIT D 4000 PO; +VITA10006 PO; +VITA100T OR; +VITA25003 IM; +VITACAP31 PO; +VITAD1000T PO; +VITAMIN B 12; +VITD2 PO; +VITMTA PO; +WELL150T PO; +XANA0.5T PO; +ZOFR8TAB PO; +ZOFR8TAB24 PO; +[UNRECOGNIZED DRUG - OTHER] PO; +amphetamine salts PO; +lomotil PO
--- NOTE | 2018-06-08 15:32 | REP ---
CT ABDOMEN PELVIS WITH IV AND ORAL CONTRAST: 06/08/2018. COMPARISON: 10/02/2015, 08/03/2015. CLINICAL HISTORY: Breast cancer. History of Crohn disease. C. Difficile in stool. Diarrhea. Left upper quadrant, focal abdominal tenderness. TECHNIQUE: Gastrografin mixture 10 mL in 290 mL flavored water for two doses per our bowel contrast protocol. Bolus of 100 mL Isovue 370 with scanning through the abdomen pelvis and delayed images through the abdomen were then performed. Coronal and sagittal reconstructions are provided. FINDINGS: CT ABDOMEN: Lung bases remain clear. Heart not enlarged. There is no pericardial thickening or effusion. Stomach and proximal duodenum are distended and filled with oral contrast, only trace amounts of that oral contrast extending into the proximal jejunum. No hiatal hernia. There has been a prior cholecystectomy. Liver, spleen, pancreas and adrenal glands are normal. There is lobation bilaterally without stone, renal mass, cyst or hydronephrosis. No hydroureter or ureteral dilatation. Ureters show normal course to the bladder without dilatation or stone. Fluid-filled small bowel loops noted with only mild distension proximally and distally and no air-fluid levels. The colon shows some scattered stool but mostly fluid-filled loops. In the right upper quadrant at the level of the hepatic flexure at its juncture with the transverse colon, there is a 5 cm long colonic stricture. This could be a mucosal lesion and is best seen on images 31-37 of the coronal series 202, and on the axial images 52 through 63 on series 201. This could also be a focal area of spasm or a mucosal lesion. There is no finding in this area on the 2016 study. No visible sign of colitis or diverticulitis in the abdominal portion of colon. There is no ascites in the upper abdomen, around the liver, spleen or within the leaves of the mesentery. The aorta has calcifications without aneurysm or dissection. No periaortic, mesenteric or retroperitoneal pathologic sized adenopathy with scattered small nodes present. Lung window review of all CT slices in the abdomen and pelvis shows no evidence for perforation or free air. Bone windows show lumbar and lower thoracic vertebral levels and the posterior elements without acute finding. The visualized ribs are grossly intact. CT PELVIS: Sacrum, SI joints, pelvis, hips and ischium are unremarkable on both sides. There is no distal ureteral dilatation or stone. Bladder partially filled without wall thickening mass or stone. No ventral or inguinal hernia nor pathologic sized inguinal adenopathy. Fluid-filled small bowel loops throughout the course of ileum seen within the pelvis. No gross wall thickening. There are a few scattered small nodes in the mesentery which are not felt to be pathologic size. There is no ascites in the upper pelvis. There is trace free fluid in the cul-de-sac. Uterus anteverted, not enlarged. It is slightly tilted towards the left. There is no adnexal mass. Distal left colon, sigmoid and rectum are mostly fluid-filled without wall thickening mass, stricture, colitis or diverticulitis. No ventral or inguinal hernia. No inguinal adenopathy. IMPRESSION: 1. The stomach and proximal duodenum are distended and there is caliber change in the duodenum as it courses between the SMA and aorta. This reflects a degree of SMA syndrome. 2. Fluid-filled colon without signs of colitis or diverticulitis but there is a 5 cm long stricture of the colon at the junction of the hepatic flexure and proximal right colon. This could be mucosal lesion or spasm. It is not present on the 2016 study. 3. Small bowel loops fluid-filled, minimally distended but without air-fluid levels, wall thickening, mesenteric edema or generalized ascites. 4. No pathologic sized mesenteric, retroperitoneal, pelvic or inguinal adenopathy. No pelvic mass. No ventral or inguinal hernia. 5. No renal, ureteral or bladder stone, hydronephrosis or mass. Electronically Signed by Danny Posada MD 06/08/2018 05:53 P
== END ==
LOC: M RAD 12:16
PROVIDERS: ATTEND Internal Medicine Medical Oncology
DX: R19.7 Diarrhea, unspecified (principal); R10.812 Left upper quadrant abdominal tenderness
CPT/HCPCS: 74177; Q9963; Q9967

== ENCOUNTER 2018-06-11 11:09 | Inpatient (IN) | payer OTHER, MEDICAID ==
[~2018-06-11] VITALS: Ht 175.3 cm; Wt 81.6 kg
[~2018-06-11 11:09] MED LIST changes: -ATOR40TA75 PO; -GASTROGRAFIN SOLUTION 30ML (Q9963) As Ordered ONE; -ISOVUE-370 76% 100ML VIAL (Q9967) As Ordered ONE
[2018-06-11 12:11] LABS: BASO # 0.1 10^3/uL (0.0-0.2); BASO % 0.8 % (0.0-1.0); EOS # 0.1 10^3/uL (0.0-0.50); EOS % 0.5 % (0.0-3.0); HEMATOCRIT 37.6 % (36.0-47.0); LYMPH # 4.2 10^3/uL (1.5-4.5); LYMPH % 45.2 % (24.0-44.0); MEAN CORPUSCULAR HEMOGLOBIN 29.1 pg (27.0-33.0); MEAN CORPUSCULAR HGB CONC 31.9 g/dl (32.0-36.5); MEAN CORPUSCULAR VOLUME 91.3 fl (80.0-96.0); MONO # 0.6 10^3/uL (0.0-0.8); MONO % 5.9 % (0.0-5.0); NEUTROPHILS # 4.4 10^3/uL (1.8-7.7); NEUTROPHILS % 47.5 % (36.0-66.0); PLATELET COUNT, AUTOMATED 248 10^3/uL (150-450); RED BLOOD COUNT 4.12 10^6/uL (4.00-5.40); WHITE BLOOD COUNT 9.3 10^3/uL (4.0-10.0)
[2018-06-11] MEDS ORDERED: ONDANSETRON 4MG/2ML VIAL (J2405) IV ONE (12:30)
[2018-06-11] MEDS ORDERED: NS 1,000 ML IV ONE (12:30)
[2018-06-11] MEDS: MORPHINE 4 MG/ML 1ML VIAL/SYRINGE (J2270) IV PRN ×3 (12:43→21:14)
[2018-06-11 12:47] LABS: ALBUMIN 3.5 GM/DL (3.2-5.2); ALT/SGPT 41 U/L (12-78); BILIRUBIN,DIRECT < 0.1 MG/DL (0.0-0.2); BILIRUBIN,TOTAL 0.1 MG/DL (0.2-1.0); BLOOD UREA NITROGEN 16 MG/DL (7-18); CALCIUM LEVEL 8.8 MG/DL (8.5-10.1); CARBON DIOXIDE LEVEL 25 MEQ/L (21-32); CHLORIDE LEVEL 109 MEQ/L (98-107); CK-MB VALUE MASS < 1.0 NG/ML (<3.6); CPK CREATINE PHOSPHOKINASE 55 U/L (26-192); CREATININE FOR GFR 0.72 MG/DL (0.55-1.30); GLOMERULAR FILTRATION RATE > 60.0 (>51); GLUCOSE, FASTING 86 MG/DL (70-100); LIPASE 98 U/L (73-393); MB/CK RELATIVE INDEX 1.82 (< OR =4); POTASSIUM SERUM 3.4 MEQ/L (3.5-5.1); SODIUM LEVEL 141 MEQ/L (136-145); TOTAL PROTEIN 6.9 GM/DL (6.4-8.2); TROPONIN I < 0.02 NG/ML (< 0.10)
[2018-06-11] MEDS ORDERED: POTASSIUM CHLORIDE 10 MEQ SR TABLET PO ONE (13:00)
[2018-06-11] MEDS ORDERED: ATOR40TA75 PO (14:02)
[2018-06-11] MEDS ORDERED: ACETAMINOPHEN TAB 650MG DOSE (2X325MG) PO PRN (15:30)
[2018-06-11] MEDS ORDERED: ONDANSETRON 4 MG TAB (S0181) PO PRN (15:30)
[2018-06-11] MEDS: NS 1,000 ML IV SCH (16:11)
[2018-06-11] MEDS: PERCOCET 5MG/325MG TAB PO PRN (16:54)
[2018-06-11 17:37] VITALS: BP 128/85
[2018-06-11] MEDS ORDERED: FENTANYL REMOVAL DOCUMENTATION MISC XX SCH (18:00)
--- NOTE | 2018-06-11 19:22 | HPEPDOC ---
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 Right breast diagnosed 2018 patient is status post port placement and first dose chemotherapy April 06, 2018, and hx of c diff x3, who presented to the ed for diarrhea for 3 weeks , one week after she was dc from here. She said she has been having 4- 22 episodes of diarrhea since then with occasional blood (mild), sometimes watery sometime soft with abd pain. She denied decreased appetite, weight loss, fever, chills, chest pain or sob . Patient also has hx of crhon's but stated that this seems different from her c rohns flare. REVIEW OF SYSTEMS: All 14 points ROS is negative except what's stated in HPI PHYSICAL EXAMINATION: GEN: mild distress due to abd pain HEENT : no lymphadenopathy, PERRLA , no oropharyngeal erythema or exudates CVS: Normal S1/s2, no murmurs, rubs or gallops, RESP: Lungs are clear to auscultation bilaterally, no crackles, wheezes or rhonchi Abd: soft, tender in the right upper and lower quadrants, nondistended, + BS MSK: full ROM, 5/5 strength in all extremities Integumentary: no rash or bruises Neuro: AOAx3, no focal deficit psych: normal mood, good judgement and cooperative PAST MEDICAL HISTORY: left breast cancer diagnosed 2012 as ductal carcinoma Right breast diagnosed 2018 hx of c diff x3 PAST SURGICAL HISTORY: 1. Breast biopsy 2. 2. Tonsillectomy. 3. section. 4. Knee arthroplasty. Left 5. Tubal ligation. SOCIAL HISTORY: Quit smoking but smoked a pack of cigarettes a day for 30 years. Denies alcohol or illicit drug use. FAMILY HISTORY: Father: Diagnosed with hypertension, . Mother: Diagnosed with pancreatic cancer, Siblings: Sister diagnosed with hypertension Hereditary Diseases: Maternal first cousin diagnosed with breast cancer ALLERGIES: Please see below. HOME MEDICATIONS: Please see below. labs - reviewed image - Ct abd and pelvis - 06/08/18 1. The stomach and proximal duodenum are distended and there is caliber change in the duodenum as it courses between the SMA and aorta. This reflects a degree of SMA syndrome. 2. Fluid-filled colon without signs of colitis or diverticulitis but there is a 5 cm long stricture of the colon at the junction of the hepatic flexure and proximal right colon. This could be mucosal lesion or spasm. It is not present on the 2016 study. 3. Small bowel loops fluid-filled, minimally distended but without air-fluid levels, wall thickening, mesenteric edema or generalized ascites. 4. No pathologic sized mesenteric, retroperitoneal, pelvic or inguinal adenopathy. No pelvic mass. No ventral or inguinal hernia. 5. No renal, ureteral or bladder stone, hydronephrosis or mass. Assessment and plan abd pain nand diarrhea - c diff and GI panel are negative -IVF -f/u esr , crp and lactic acid -GI consult - when available (none available) - surgery consult - Dvt ppx - scd GI ppx full code, from home Vital Signs Vital Signs Date Time Temp Pulse Resp B/P (MAP) Pulse Ox O2 Delivery O2 Flow Rate FiO2 06/11/18 17:37 97.6 93 16 128/85 (99) 97 06/11/18 16:12 Room Air Laboratory Data Labs 24H Laboratory Tests 2 06/11/18 11:18: Anion Gap 7L, Glomerular Filtration Rate > 60.0, Calcium Level 8.8, Magnesium Level 2.0, Aspartate Amino Transf (AST/SGOT) 31, Alanine Aminotransferase (ALT/SGPT) 41, Alkaline Phosphatase 114, Total Bilirubin 0.1L, Direct Bilirubin < 0.1, Total Creatine Kinase 55, Creatine Kinase MB < 1.0, Creatine Kinase MB Relative Index 1.82, Troponin I < 0.02, Total Protein 6.9, Albumin 3.5, Albumin/Globulin Ratio 1.03, Lipase 98 06/11/18 11:46: Immature Granulocyte % (Auto) 0.1, White Blood Count 9.3, Red Blood Count 4.12, Hemoglobin 12.0, Hematocrit 37.6, Mean Corpuscular Volume 91.3, Mean Corpuscular Hemoglobin 29.1, Mean Corpuscular Hemoglobin Concent 31.9L, Red Cell Distribution Width 14.4, Platelet Count 248, Neutrophils (%) (Auto) 47.5, L ymphocytes (%) (Auto) 45.2H, Monocytes (%) (Auto) 5.9H, Eosinophils (%) (Auto) 0.5, Basophils (%) (Auto) 0.8, Neutrophils # (Auto) 4.4, Lymphocytes # (Auto) 4.2, Monocytes # (Auto) 0.6, Eosinophils # (Auto) 0.1, Basophils # (Auto) 0.1, Nucleated Red Blood Cells % (auto) 0.0 CBC/BMP Laboratory Tests 06/11/18 11:18 06/11/18 11:46 Red Blood Count 4.12, Mean Corpuscular Volume 91.3, Mean Corpuscular Hemoglobin 29.1, Mean Corpuscular Hemoglobin Concent 31.9 L, Red Cell Distribution Width 14.4, Neutrophils (%) (Auto) 47.5, Lymphocytes (%) (Auto) 45.2 H, Monocytes (%) (Auto) 5.9 H, Eosinophils (%) (Auto) 0.5, Basophils (%) (Auto) 0.8, Neutrophils # (Auto) 4.4, Lymphocytes # (Auto) 4.2, Monocytes # (Auto) 0.6, Eosinophils # (Auto) 0.1, Basophils # (Auto) 0.1 Microbiology Microbiology 06/11/18 Blood Culture, Received Pending 06/11/18 Blood Culture, Received Pending Home Medications Scheduled Amphetamine/Dextroamphetamine (Amphetamine/Dextroampheta 30 mg) 1 Cap Cap, 30 MG PO DAILY Atorvastatin Calcium (Atorvastatin Calcium) 40 Mg Tab, 40 MG PO QHS Cyanocobalamin (Cyanocobalamin) 1,000 Mcg/1 Ml Inj, 1,000 MCG IM 1XWK THURSDAYS Dexamethasone (Dexamethasone) 4 Mg Tab, 4 MG PO ASDIRECTED 4MG BID WHEN DOING CHEMO Duloxetine Hcl (Duloxetine HCl) 60 Mg Cap, 60 MG PO DAILY Fentanyl (Duragesic) 75 Mcg/Hr Dis, 150 MCG TOP Q3D REMOVED THIS MORNING. CURRENTLY NO PATCH ON. Furosemide (Furosemide) 20 Mg Tab, 20 MG PO DAILY HAS NOT TAKEN IN 2 WEEKS DUE TO DIARRHEA Levothyroxine Sodium (Synthroid) 300 Mcg Tab, 300 MCG PO DAILY Multivitamins *[facility] STOCKED* (Thera M Plus *[facility] STOCKED*) 1 Tab Tab, 1 TAB PO QHS Scheduled PRN Ondansetron (Ondansetron Odt) 8 Mg Tab, 8 MG PO Q6H PRN for NAUSEA Oxycodone Hcl (Oxycodone HCl) 15 Mg Tab, 15 MG PO Q4H PRN for PAIN Allergies Coded Allergies: Budesonide (Verified Allergy, Intermediate, EYE SWELLING, 04/28/17) Cephalexin (Verified Allergy, Intermediate, HIVES/SWELLING, 04/21/18) Ciprofloxacin (Verified Allergy, Intermediate, HIVES/SWELLING, 04/21/18) Penicillins (Verified Allergy, Intermediate, HIVES, 04/28/17) Wheat (Verified Allergy, Intermediate, CELIACS DISEASE, 04/28/17) Gluten Meal (Verified Adverse Reaction, Intermediate, CELIACS DOSEASE, 04/28/17) Ketorolac Tromethamine (Verified Adverse Reaction, Intermediate, SEVERE HEADACHE, 04/28/17) TONE CONDE MD Jun 11, 2018 19:22
[2018-06-11] MEDS: fentaNYL 75 MCG/HR PATCH TOP SCH (21:13)
[2018-06-11] MEDS: MULTIVITAMINS/MINERALS THERAP 1 TAB PO SCH (21:14)
[2018-06-11] MEDS: ATORVASTATIN 20 MG TAB PO SCH (21:14)
[2018-06-11 22:00] VITALS: BP 121/73
[2018-06-11 23:21] LABS: APPEARANCE, URINE CLEAR (CLEAR); BACTERIA, URINE AUTO NEGATIVE (NEGATIVE); BILIRUBIN, URINE AUTO NEGATIVE (NEGATIVE); BLOOD, URINE BLOOD NEGATIVE (NEGATIVE); COLOR, URINE YELLOW (YELLOW); GLUCOSE, URINE (UA) AUTO NEGATIVE (NEGATIVE); KETONE, URINE AUTO NEGATIVE (NEGATIVE); LEUKOCYTE ESTERASE, URINE AUTO TRACE (NEGATIVE); NITRITE, URINE AUTO NEGATIVE (NEGATIVE); PROTEIN, URINE AUTO NEGATIVE (NEGATIVE); RBC, URINE AUTO 0 /HPF (0-3); SPECIFIC GRAVITY URINE AUTO 1.017 (1.002-1.035); SQUAMOUS EPITHELIAL CELL UR AU 1 /HPF (0-6); UROBILINOGEN, URINE AUTO 0.2 mg/dL (0.0-2.0); WBC, URINE AUTO 1 /HPF (0-3)
[2018-06-12] MEDS: MORPHINE 4 MG/ML 1ML VIAL/SYRINGE (J2270) IV PRN ×2 (00:57→20:49)
[2018-06-12] MEDS: NS 1,000 ML IV SCH ×2 (04:36→16:16)
[2018-06-12] MEDS: oxyCODONE 5MG TAB PO PRN ×4 (05:45→19:19)
[2018-06-12] MEDS: LEVOTHYROXINE 150MCG TABLET (0.15MG) PO SCH (05:45)
[2018-06-12 06:00] VITALS: BP 113/58
[2018-06-12 07:01] LABS: BASO # 0.1 10^3/uL (0.0-0.2); BASO % 0.9 % (0.0-1.0); EOS # 0.1 10^3/uL (0.0-0.50); EOS % 1.3 % (0.0-3.0); HEMATOCRIT 34.9 % (36.0-47.0); LYMPH # 2.5 10^3/uL (1.5-4.5); LYMPH % 47.1 % (24.0-44.0); MEAN CORPUSCULAR HEMOGLOBIN 29.1 pg (27.0-33.0); MEAN CORPUSCULAR HGB CONC 31.5 g/dl (32.0-36.5); MEAN CORPUSCULAR VOLUME 92.3 fl (80.0-96.0); MONO # 0.4 10^3/uL (0.0-0.8); NEUTROPHILS # 2.3 10^3/uL (1.8-7.7); NEUTROPHILS % 43.7 % (36.0-66.0); PLATELET COUNT, AUTOMATED 219 10^3/uL (150-450); RED BLOOD COUNT 3.78 10^6/uL (4.00-5.40); WHITE BLOOD COUNT 5.3 10^3/uL (4.0-10.0)
[2018-06-12 07:20] LABS: BLOOD UREA NITROGEN 12 MG/DL (7-18); CALCIUM LEVEL 8.4 MG/DL (8.5-10.1); CARBON DIOXIDE LEVEL 26 MEQ/L (21-32); CHLORIDE LEVEL 114 MEQ/L (98-107); CREATININE FOR GFR 0.67 MG/DL (0.55-1.30); GLOMERULAR FILTRATION RATE > 60.0 (>51); GLUCOSE, FASTING 89 MG/DL (70-100); MAGNESIUM LEVEL 1.9 MG/DL (1.8-2.4); POTASSIUM SERUM 3.7 MEQ/L (3.5-5.1); SODIUM LEVEL 144 MEQ/L (136-145)
[2018-06-12] MEDS: FUROSEMIDE 20 MG TAB PO SCH (10:00)
[2018-06-12] MEDS: DULoxetine 30 MG CAP (CYMBALTA) PO SCH (10:00)
[2018-06-12] MEDS: PANTOPRAZOLE 40MG TAB (PROTONIX) PO SCH (10:01)
[2018-06-12 14:00] VITALS: BP 133/79
--- NOTE | 2018-06-12 14:50 | IPNPDOC ---
Text Note Date of Service The patient was seen on 06/12/18. NOTE Subjective: Patient sits 3-year-old female with a PMHx of Bilateral Breast CA (L: Ductal Carcinoma, 2012; R: 2018) s/p chemotherapy, and Hx of C. diff colitis (x3) who presented to the ER with complaints of diarrhea and abdominal pain. Patient had noted that her right breast was diagnosed with cancer. Port placement early March 2018 and received chemotherapy. Patient was admitted to hospitalist service for abdominal pain and diarrhea. Patient was seen and examined at the bedside. Currently patient denies any chest pain, shortness of breath, palpitations. Denies nausea, vomiting. Notes that there is been improving, abdominal pain, still reports some diarrhea. Denies constipation or discomfort with urination. Objective: Vitals (See below) General: Lying in bed, no acute distress, comfortable, AAOx3 HEENT: NC, AT CVS: RRR, +S1S2 Lungs: Fair air entry b/l, -w/r/r Abdomen: Soft, ND, diffuse abdominal tenderness Extremities: - Edema, - Calf tenderness Assessment and plan: Abdominal pain / Diarrhea - possibly 2/2 gastroenteritis, unlikely 2/2 inflammatory etiologhy - Patient presented to ER with worsening abdominal pain and diarrhea - Physical with some abdominal tenderness appreciated diffusely - No leukocytosis or lactic acidosis - No elevation in CRP / ESR - GI panel 06/11: Negative - CT abdomen / pelvis 06/08: Possible SMA syndrome, mucosal lesion / spasms of proximal right colon, - Surgery has been called on consultation; appreciate their help Bilateral Breast CA - L: Ductal Carcinoma, 2012 and R: 2018 - s/p chemotherapy - Recent port placement an dermotherapy for new cancer Hx of C. diff colitis (x3) - GI panel negative GI prophylaxis - c/w Protonix DVT prophylaxis - c/w SCDs/TEDs VS,Fishbone, I+O VS, Fishbone, I+O Laboratory Tests 06/12/18 05:53 Red Blood Count 3.78 L, Mean Corpuscular Volume 92.3, Mean Corpuscular Hemoglobin 29.1, Mean Corpuscular Hemoglobin Concent 31.5 L, Red Cell Distribution Width 14.5, Neutrophils (%) (Auto) 43.7, Lymphocytes (%) (Auto) 47.1 H, Monocytes (%) (Auto) 7.0 H, Eosinophils (%) (Auto) 1.3, Basophils (%) (Auto) 0.9, Neutrophils # (Auto) 2.3, Lymphocytes # (Auto) 2.5, Monocytes # (Auto) 0.4, Eosinophils # (Auto) 0.1, Basophils # (Auto) 0.1, Calcium Level 8.4 L Vital Signs Date Time Temp Pulse Resp B/P (MAP) Pulse Ox O2 Delivery O2 Flow Rate FiO2 06/12/18 13:51 14 06/12/18 06:00 97.1 68 113/58 (76) 96 06/11/18 16:12 Room Air I&O- Last 24 Hours up to 6 AM 06/12/18 06:00 Intake Total 2360 ml Output Total 1400 ml Balance 960 ml ADY SALES MD Jun 12, 2018 14:50
[2018-06-12] MEDS: PERCOCET 5MG/325MG TAB PO PRN (14:56)
--- NOTE | 2018-06-12 18:49 | ECGEPIP ---
Stationary ECG Study [facility] - ED Test Date: 2018-06-11 Pat Name: MAUREEN PORTILLO Department: Room: - Gender: F Histologic Technician: HUSSEIN : 1965 Requested By: Janina Will Order Number: [id number] Reading MD: Janina Will Measurements Intervals [place] Rate: 80 P: 47 OK: 148 QRS: 22 QRSD: 104 T: 64 QT: 374 QTc: 433 Interpretive Statements SINUS RHYTHM NONSPECIFIC T-WAVE ABNORMALITY LOW VOLTAGE LIMB SHORTER QTC/SLOWER RATE 04/20/18 Electronically Signed On 06-12-2018 18:49:18 EST by Janina Will
[2018-06-12] MEDS: MULTIVITAMINS/MINERALS THERAP 1 TAB PO SCH (20:48)
[2018-06-12] MEDS: ATORVASTATIN 20 MG TAB PO SCH (20:48)
[2018-06-12 22:00] VITALS: BP 121/69
[2018-06-13] MEDS: MORPHINE 4 MG/ML 1ML VIAL/SYRINGE (J2270) IV PRN ×3 (03:27→20:54)
[2018-06-13] MEDS: NS 1,000 ML IV SCH ×2 (05:02→12:52)
[2018-06-13] MEDS: oxyCODONE 5MG TAB PO PRN ×4 (05:03→22:26)
[2018-06-13] MEDS: LEVOTHYROXINE 150MCG TABLET (0.15MG) PO SCH (05:39)
[2018-06-13 06:00] VITALS: BP 113/68
[2018-06-13 06:34] LABS: BASO # 0.1 10^3/uL (0.0-0.2); BASO % 0.7 % (0.0-1.0); EOS # 0.1 10^3/uL (0.0-0.50); EOS % 1.2 % (0.0-3.0); HEMATOCRIT 35.1 % (36.0-47.0); LYMPH # 4.3 10^3/uL (1.5-4.5); LYMPH % 58.9 % (24.0-44.0); MEAN CORPUSCULAR HEMOGLOBIN 29.3 pg (27.0-33.0); MEAN CORPUSCULAR HGB CONC 31.3 g/dl (32.0-36.5); MEAN CORPUSCULAR VOLUME 93.6 fl (80.0-96.0); MONO # 0.5 10^3/uL (0.0-0.8); MONO % 7.3 % (0.0-5.0); NEUTROPHILS # 2.3 10^3/uL (1.8-7.7); NEUTROPHILS % 31.8 % (36.0-66.0); PLATELET COUNT, AUTOMATED 219 10^3/uL (150-450); RED BLOOD COUNT 3.75 10^6/uL (4.00-5.40); WHITE BLOOD COUNT 7.3 10^3/uL (4.0-10.0)
[2018-06-13 06:50] LABS: BLOOD UREA NITROGEN 9 MG/DL (7-18); CALCIUM LEVEL 8.3 MG/DL (8.5-10.1); CARBON DIOXIDE LEVEL 28 MEQ/L (21-32); CHLORIDE LEVEL 110 MEQ/L (98-107); CREATININE FOR GFR 0.73 MG/DL (0.55-1.30); GLOMERULAR FILTRATION RATE > 60.0 (>51); GLUCOSE, FASTING 98 MG/DL (70-100); MAGNESIUM LEVEL 2.2 MG/DL (1.8-2.4); POTASSIUM SERUM 4.4 MEQ/L (3.5-5.1); SODIUM LEVEL 145 MEQ/L (136-145)
[2018-06-13] MEDS: PANTOPRAZOLE 40MG TAB (PROTONIX) PO SCH (09:07)
[2018-06-13] MEDS: DULoxetine 30 MG CAP (CYMBALTA) PO SCH (09:07)
[2018-06-13] MEDS: FUROSEMIDE 20 MG TAB PO SCH (09:07)
--- NOTE | 2018-06-13 10:18 | CR ---
DATE OF CONSULTATION: 06/11/2018 REASON FOR CONSULTATION: Diarrhea with abnormal CT finding. HISTORY OF THE PRESENT ILLNESS: The patient is a pleasant, 53-year-old woman, who has recently been undergoing chemotherapy for right breast cancer. She has tolerated her chemotherapy poorly with apparent episodes of immune suppression leading to infections. She was in the hospital in March, apparently with some form of pneumonia requiring treatment with antibiotics. Apparently, her dose has been adjusted without improvement in avoiding chemotherapy related problems. She reports a history of previous Clostridium difficile infection. She reports that over the last several weeks she has noted diarrhea, which seems to be worsening in intensity. She has had some crampy abdominal discomfort as well. She has been able to take a diet and has not noticed fevers or chills. She also reports a history of Crohn disease in the past. She had been keeping this under control with Entyvio, but this was stopped after problems with her chemotherapeutic agents. Because of her diarrhea and abdominal discomfort, her oncologist had ordered a CT scan of the abdomen and pelvis, which was done on 06/08/2018. Her symptoms worsened and she was admitted today by the hospitalist. In reviewing the CT scan, there was a report of a possible stricture in the area of the hepatic flexure. I was asked to evaluate the patient as to the likelihood that this CT finding was responsible for some of her symptomatology. ALLERGIES are listed to the BUDESONIDE, CEPHALEXIN, CIPROFLOXACIN, GLUTEN MEAL, KETOROLAC, PENICILLINS, and WHEAT. MEDICATIONS: Medications include: - amphetamine/dextroamphetamine 1 capsule 30 mg by mouth daily - atorvastatin 40 mg by mouth nightly - cyanocobalamin 1000 mcg intramuscularly once per week - dexamethasone 4 mg as directed when doing chemotherapy - Loxitane 60 mg by mouth daily - fentanyl 75 mcg patches every 3 hours days - Lasix 20 mg by mouth daily (Though this has been on hold because of her diarrhea.) - levothyroxine 300 mcg by mouth daily - multivitamin by mouth nightly - Zofran 8 mg by mouth every 6 hours as needed for nausea - oxycodone 15 mg by mouth every 4 hours as needed for pain SURGICAL HISTORY: The patient has undergone a previous treatment for left breast cancer diagnosed in 2012. This had originally been diagnosed with ductal carcinoma in situ, but the excised specimen contained a small focus of invasive carcinoma. She underwent a right partial mastectomy and sentinel node biopsy for invasive ductal carcinoma. She has had her tonsils out. She has undergone section. She has had a left knee arthroplasty and a tubal ligation. She has undergone an EGD and colonoscopy previously. MEDICAL HISTORY: Medical history is significant for her breast cancers. She does have a history of Clostridium difficile previously. She reportedly has a history of Crohn disease. REVIEW OF SYSTEMS: Reveals only the diarrhea without any rectal bleeding. She does have some crampy abdominal pains associated with this. She has not had any heart or lung symptoms. She denies any new bone or joint issues. She has had no history of deep venous thrombosis (DVT) or pulmonary embolus. Family history and social history are not helpful. PHYSICAL EXAMINATION: Reveals a pleasant woman appearing older than her stated age, lying quietly on the hospital bed. She has very short hair. Skin is warm and dry. Sclerae are anicteric. Neck is supple. Heart exam shows a regular rhythm and is not tachycardiac. The lungs are clear. The abdomen is somewhat obese but soft. She has some mild diffuse tenderness basically throughout the abdomen. There is no sign of hernia. There is no rebound. Extremities show palpable radial and pedal pulses. Her laboratory studies show white count of 9, hemoglobin 12, hematocrit 38 and a platelet count of 248,000. Chemistry profile shows sodium 141, potassium 3.4, chloride 109, CO2 of 25 and a normal BUN, creatinine and glucose. Liver function tests are unremarkable. Her CT scan from 06/08/2018 I reviewed personally. There is much fluid scattered throughout the small and large bowel. She has I think in some areas of some slight thickening of the mucosa particularly in the distal colon. There is an area in the right upper quadrant where the radiologist identified as being consistent either with an area of spasm of the colon or possibly a stricture. I see several other smaller shorter areas that look similar and I suspect all of these areas represent spasm associated with her history of diarrhea and abdominal pain. Her history is certainly not suggestive of a bowel obstruction and there does not appear to be a significant distinction in the size of the bowel on either side of this identified area. IMPRESSION: Abdominal pain with diarrhea for several weeks possibly representing Clostridium difficile or reactivation of Crohn disease. RECOMMENDATIONS: At this point, I do not believe that the CT scan finding is of clinical significance. I suspect that this is just an area of the spasm or contraction within the wall of colon. I do think evaluating her for Clostridium difficile is very appropriate. I doubt that this represents an exacerbation of her Crohn's to account for her diarrhea. Edited: 06/13/2018 1028 vl
[2018-06-13] MEDS: PERCOCET 5MG/325MG TAB PO PRN ×2 (11:21→11:22)
[2018-06-13] MEDS: GASTROGRAFIN SOLUTION 30ML PO SCH ×2 (13:25→14:02)
[2018-06-13 14:00] VITALS: BP 116/71
[2018-06-13] MEDS ORDERED: ISOVUE-370 76% 100ML VIAL (Q9967) As Ordered ONE (14:06)
--- NOTE | 2018-06-13 16:18 | IPNPDOC ---
Text Note Date of Service The patient was seen on 06/13/18. NOTE Subjective: Patient sits 3-year-old female with a PMHx of Bilateral Breast CA (L: Ductal Carcinoma, 2012; R: 2018) s/p chemotherapy, and Hx of C. diff colitis (x3) who presented to the ER with complaints of diarrhea and abdominal pain. Patient had noted that her right breast was diagnosed with cancer. Port placement early March 2018 and received chemotherapy. Patient was admitted to hospitalist service for abdominal pain and diarrhea. Patient was seen and examined at the bedside. Patient is still experiencing diarrhea. She expresses some lower quadrant abdominal pain. Denies any nausea, vomiting. Denies any chest pain, shortness of breath or palpitations. Does not express any discomfort with urination. Objective: Vitals (See below) General: Lying in bed, no acute distress, comfortable, AAOx3 HEENT: NC, AT CVS: RRR, +S1S2 Lungs: Fair air entry b/l, no evidence of wheezing, rhonchi, rales Abdomen: Soft, nondistended, tenderness at upper quadrants; L&R Extremities: No evidence of LE edema, - Calf tenderness Assessment and plan: Abdominal pain / Diarrhea - possibly 2/2 gastroenteritis, unlikely 2/2 inflammatory etiology, unlikely 2/2 chemotherapy - Patient presented to ER with worsening abdominal pain and diarrhea - Discuss with oncology, Dr. delonte Whitlock. Patient last received chemotherapy ([facility]: Docetaxel + Carboplatin + Trastuzumab) mid-March - Physical with some abdominal tenderness appreciated diffusely - No leukocytosis or lactic acidosis - No elevation in CRP / ESR - GI panel 06/11: Negative - CT abdomen / pelvis 06/08: Possible SMA syndrome, mucosal lesion / spasms of proximal right colon - Will get repeat CT abdomen / pelvis - Surgery has been called on consultation; appreciate their help; Bilateral Breast CA - L: Ductal Carcinoma, 2012 and R: 2018 - s/p chemotherapy - Recent port placement an dermotherapy for new cancer Hx of C. diff colitis (x3) - GI panel negative GI prophylaxis - c/w Protonix DVT prophylaxis - c/w SCDs/TEDs VS,Fishbone, I+O VS, Fishbone, I+O Laboratory Tests 06/13/18 06:00 Red Blood Count 3.75 L, Mean Corpuscular Volume 93.6, Mean Corpuscular Hemoglobin 29.3, Mean Corpuscular Hemoglobin Concent 31.3 L, Red Cell Distribution Width 14.5, Neutrophils (%) (Auto) 31.8 L, Lymphocytes (%) (Auto) 58.9 H, Monocytes (%) (Auto) 7.3 H, Eosinophils (%) (Auto) 1.2, Basophils (%) (Auto) 0.7, Neutrophils # (Auto) 2.3, Lymphocytes # (Auto) 4.3, Monocytes # (Auto) 0.5, Eosinophils # (Auto) 0.1, Basophils # (Auto) 0.1, Calcium Level 8.3 L Vital Signs Date Time Temp Pulse Resp B/P (MAP) Pulse Ox O2 Delivery O2 Flow Rate FiO2 06/13/18 14:00 97.8 84 19 116/71 (86) 95 06/11/18 16:12 Room Air I&O- Last 24 Hours up to 6 AM 06/13/18 06:00 Intake Total 4540 ml Output Total 4600 ml Balance -60 ml ADY SALES MD Jun 13, 2018 16:18
--- NOTE | 2018-06-13 17:38 | REP ---
CT of the abdomen and pelvis with IV and oral contrast: Comparison is 04/07/2019. The visualized lung torres are unremarkable. The hepatic parenchyma is unremarkable. There are surgical clips in the gallbladder fossa. This is unchanged. The pancreas and spleen are normal size and unremarkable. The adrenals and kidneys are unremarkable. The abdominal aorta is unremarkable. There is a focal zone of luminal narrowing associated with wall thickening in the proximal transverse colon, similar to the prior study. The persistence of this finding is somewhat worrisome. Consider follow-up barium enema or colonoscopy. There is a second focal zone of luminal narrowing in the distal transverse colon, not definitely present previously, possibly peristalsis. There is no bowel distension or obstruction. The entire small bowel is fluid-filled and minimally distended. This is nonspecific and could be a normal variant or ileus. There are no air-fluid levels. The entire colon is fecal filled and mildly distended to the rectosigmoid junction. There is no ascites. Pelvis: There is no ascites or adenopathy. The bladder is unremarkable. The uterus and adnexa are unremarkable. Impression: Focal persistent stricture in the proximal transverse colon. This is of wall thickening, unchanged from the prior study. Neoplasm is a primary diagnostic concern. Consider colonoscopy or barium enema. See second focal zone of luminal narrowing in the distal transverse colon, not present previously, possibly peristalsis. The entire small bowel is mildly distended and fluid-filled. There are no air-fluid levels. This could be a normal variant or ileus. No evidence of obstruction. The entire colon is fecal filled and mildly distended to the rectosigmoid junction. No focal stricture of the distal colon is identified. Electronically Signed by Rojelio Henry MD 06/13/2018 05:30 P
[2018-06-13] MEDS: MULTIVITAMINS/MINERALS THERAP 1 TAB PO SCH (20:38)
[2018-06-13] MEDS: ATORVASTATIN 20 MG TAB PO SCH (20:38)
[2018-06-13] MEDS ORDERED: LOMOTIL 2.5MG/0.025MG TABLET PO PRN (21:00)
[2018-06-13 22:00] VITALS: BP 132/87
[2018-06-14] MEDS: oxyCODONE 5MG TAB PO PRN ×4 (03:04→17:26)
[2018-06-14] MEDS: MORPHINE 4 MG/ML 1ML VIAL/SYRINGE (J2270) IV PRN ×3 (04:47→23:30)
[2018-06-14] MEDS: NS 1,000 ML IV SCH ×2 (04:48→17:27)
[2018-06-14] MEDS: LEVOTHYROXINE 150MCG TABLET (0.15MG) PO SCH (05:41)
[2018-06-14 06:00] VITALS: BP 106/71
[2018-06-14 06:23] LABS: BASO % 0.5 % (0.0-1.0); EOS # 0.1 10^3/uL (0.0-0.50); HEMATOCRIT 35.1 % (36.0-47.0); HEMOGLOBIN 11.1 g/dl (12.0-15.5); LYMPH # 4.1 10^3/uL (1.5-4.5); LYMPH % 55.6 % (24.0-44.0); MEAN CORPUSCULAR HEMOGLOBIN 29.1 pg (27.0-33.0); MEAN CORPUSCULAR HGB CONC 31.6 g/dl (32.0-36.5); MEAN CORPUSCULAR VOLUME 92.1 fl (80.0-96.0); MONO # 0.5 10^3/uL (0.0-0.8); MONO % 6.9 % (0.0-5.0); NEUTROPHILS # 2.6 10^3/uL (1.8-7.7); NEUTROPHILS % 35.9 % (36.0-66.0); PLATELET COUNT, AUTOMATED 209 10^3/uL (150-450); RED BLOOD COUNT 3.81 10^6/uL (4.00-5.40); WHITE BLOOD COUNT 7.3 10^3/uL (4.0-10.0)
[2018-06-14 06:45] LABS: BLOOD UREA NITROGEN 9 MG/DL (7-18); CALCIUM LEVEL 8.5 MG/DL (8.5-10.1); CARBON DIOXIDE LEVEL 27 MEQ/L (21-32); CHLORIDE LEVEL 110 MEQ/L (98-107); CREATININE FOR GFR 0.84 MG/DL (0.55-1.30); GLOMERULAR FILTRATION RATE > 60.0 (>51); GLUCOSE, FASTING 95 MG/DL (70-100); MAGNESIUM LEVEL 2.2 MG/DL (1.8-2.4); POTASSIUM SERUM 3.8 MEQ/L (3.5-5.1); SODIUM LEVEL 142 MEQ/L (136-145)
[2018-06-14] MEDS: FUROSEMIDE 20 MG TAB PO SCH (08:17)
[2018-06-14] MEDS: DULoxetine 30 MG CAP (CYMBALTA) PO SCH (08:17)
[2018-06-14] MEDS: PANTOPRAZOLE 40MG TAB (PROTONIX) PO SCH (08:17)
--- NOTE | 2018-06-14 12:24 | IPNPDOC ---
Text Note Date of Service The patient was seen on 06/14/18. NOTE Subjective: Patient sits 3-year-old female with a PMHx of Bilateral Breast CA (L: Ductal Carcinoma, 2012; R: 2018) s/p chemotherapy, and Hx of C. diff colitis (x3) who presented to the ER with complaints of diarrhea and abdominal pain. Patient had noted that her right breast was diagnosed with cancer. Port placement early March 2018 and received chemotherapy. Patient was admitted to hospitalist service for abdominal pain and diarrhea. Surgery was called on consultation from admission. Patient was seen and examined at the bedside. Denies any chest pain, shortness of breath, palpitations. Patient still notes some abdominal pain. Denies nausea, vomiting. Still experiences loose stools. Objective: Vitals (See below) General: Lying in bed, no acute distress, comfortable, AAOx3 HEENT: NC, AT CVS: RRR, +S1S2 Lungs: Fair air entry b/l, no evidence of wheezing, rhonchi, rales Abdomen: Soft, ND, tenderness at upper quadrants bilaterally again noted Extremities: No evidence of LE edema, - Calf tenderness Assessment and plan: Abdominal pain / Diarrhea - possibly 2/2 gastroenteritis, possibly 2/2 malignancy, unlikely 2/2 inflammatory etiology, unlikely 2/2 chemotherapy - Patient presented to ER with worsening abdominal pain and diarrhea - Discuss with oncology, Dr. delonte Whitlock. Patient last received chemotherapy (TCH: Docetaxel + Carboplatin + Trastuzumab) mid-March - Physical with some abdominal tenderness appreciated diffusely, more prominent at upper quadrants - No leukocytosis or lactic acidosis - No elevation in CRP / ESR - GI panel 06/11: Negative - CT abdomen / pelvis 06/08: Possible SMA syndrome, mucosal lesion / spasms of proximal right colon - CT abdomen / pelvis 06/13: Focal persistent stricture in the proximal transverse colon. This is of wall thickening, unchanged from the prior study. Neoplasm is a primary diagnostic concern. Consider colonoscopy or barium enema. See second focal zone of luminal narrowing in the distal transverse colon, not present previously, possibly peristalsis. The entire small bowel is mildly distended and fluid-filled. There are no air-fluid levels. This could be a normal variant or ileus. No evidence of obstruction. The entire colon is fecal filled and mildly distended to the rectosigmoid junction. No focal stricture of the distal colon is identified. - Surgery has been called on consultation; appreciate their help; discussed with surgery about CT scan report; consideration of colonoscopy - possibly Monday 06/19; hold Enema for now Bilateral Breast CA - L: Ductal Carcinoma, 2012 and R: 2018 - s/p chemotherapy; Last dose Mid-March - Recent port placement for chemotherapy for new cancer Hx of C. diff colitis (x3) - GI panel negative GI prophylaxis - c/w Protonix DVT prophylaxis - c/w SCDs/TEDs Disposition: - Awaiting possible colonoscopy / surgical clearance VS,Fishbone, I+O VS, Fishbone, I+O Laboratory Tests 06/14/18 06:00 Red Blood Count 3.81 L, Mean Corpuscular Volume 92.1, Mean Corpuscular Hemoglobin 29.1, Mean Corpuscular Hemoglobin Concent 31.6 L, Red Cell Distribution Width 14.2, Neutrophils (%) (Auto) 35.9 L, Lymphocytes (%) (Auto) 55.6 H, Monocytes (%) (Auto) 6.9 H, Eosinophils (%) (Auto) 1.0, Basophils (%) (Auto) 0.5, Neutrophils # (Auto) 2.6, Lymphocytes # (Auto) 4.1, Monocytes # (Auto) 0.5, Eosinophils # (Auto) 0.1, Basophils # (Auto) 0.0, Calcium Level 8.5 Vital Signs Date Time Temp Pulse Resp B/P (MAP) Pulse Ox O2 Delivery O2 Flow Rate FiO2 06/14/18 08:17 17 93 06/14/18 06:00 97.8 63 106/71 (83) 06/11/18 16:12 Room Air I&O- Last 24 Hours up to 6 AM 06/14/18 06:00 Intake Total 3170 ml Output Total 5000 ml Balance -1830 ml ADY SALES MD Jun 14, 2018 12:24
[2018-06-14 14:00] VITALS: BP 131/83
[2018-06-14] MEDS: fentaNYL 75 MCG/HR PATCH TOP SCH (17:26)
[2018-06-14] MEDS: MULTIVITAMINS/MINERALS THERAP 1 TAB PO SCH (21:03)
[2018-06-14] MEDS: ATORVASTATIN 20 MG TAB PO SCH (21:03)
[2018-06-14 22:00] VITALS: BP 148/86
[2018-06-15] MEDS: oxyCODONE 5MG TAB PO PRN ×3 (02:34→22:30)
[2018-06-15] MEDS: LEVOTHYROXINE 150MCG TABLET (0.15MG) PO SCH (05:27)
[2018-06-15] MEDS: NS 1,000 ML IV SCH ×2 (05:27→18:12)
[2018-06-15] MEDS: MORPHINE 4 MG/ML 1ML VIAL/SYRINGE (J2270) IV PRN ×4 (05:35→20:38)
[2018-06-15 05:46] LABS: BASO % 0.4 % (0.0-1.0); EOS # 0.1 10^3/uL (0.0-0.50); EOS % 0.8 % (0.0-3.0); HEMATOCRIT 35.4 % (36.0-47.0); HEMOGLOBIN 11.2 g/dl (12.0-15.5); LYMPH # 3.8 10^3/uL (1.5-4.5); LYMPH % 52.3 % (24.0-44.0); MEAN CORPUSCULAR HEMOGLOBIN 29.4 pg (27.0-33.0); MEAN CORPUSCULAR HGB CONC 31.6 g/dl (32.0-36.5); MEAN CORPUSCULAR VOLUME 92.9 fl (80.0-96.0); MONO # 0.6 10^3/uL (0.0-0.8); MONO % 7.8 % (0.0-5.0); NEUTROPHILS # 2.8 10^3/uL (1.8-7.7); NEUTROPHILS % 38.3 % (36.0-66.0); PLATELET COUNT, AUTOMATED 205 10^3/uL (150-450); RED BLOOD COUNT 3.81 10^6/uL (4.00-5.40); WHITE BLOOD COUNT 7.3 10^3/uL (4.0-10.0)
[2018-06-15 06:00] VITALS: BP 115/71
[2018-06-15 06:11] LABS: BLOOD UREA NITROGEN 9 MG/DL (7-18); CALCIUM LEVEL 8.3 MG/DL (8.5-10.1); CARBON DIOXIDE LEVEL 28 MEQ/L (21-32); CHLORIDE LEVEL 109 MEQ/L (98-107); CREATININE FOR GFR 0.71 MG/DL (0.55-1.30); GLOMERULAR FILTRATION RATE > 60.0 (>51); GLUCOSE, FASTING 101 MG/DL (70-100); POTASSIUM SERUM 3.8 MEQ/L (3.5-5.1); SODIUM LEVEL 144 MEQ/L (136-145)
[2018-06-15] MEDS: FUROSEMIDE 20 MG TAB PO SCH (09:41)
[2018-06-15] MEDS: DULoxetine 30 MG CAP (CYMBALTA) PO SCH (09:41)
[2018-06-15] MEDS: PANTOPRAZOLE 40MG TAB (PROTONIX) PO SCH (09:41)
[2018-06-15] MEDS: ADDERALL 5 MG TAB PO SCH (12:13)
[2018-06-15 14:00] VITALS: BP 132/86
--- NOTE | 2018-06-15 15:10 | IPNPDOC ---
Text Note Date of Service The patient was seen on 06/15/18. NOTE Subjective: Patient sits 3-year-old female with a PMHx of Bilateral Breast CA (L: Ductal Carcinoma, 2012; R: 2018) s/p chemotherapy, and Hx of C. diff colitis (x3) who presented to the ER with complaints of diarrhea and abdominal pain. Patient had noted that her right breast was diagnosed with cancer. Port placement early March 2018 and received chemotherapy. Patient was admitted to hospitalist service for abdominal pain and diarrhea. Surgery was called on consultation from admission. Patient was seen and examined at the bedside. Objective: Vitals (See below) General: Lying in bed, no acute distress, comfortable, AAOx3 HEENT: NC, AT CVS: RRR, +S1S2 Lungs: Fair air entry b/l, it is not drinking escalated evidence of rhonchi, wheezing or rales Abdomen: Soft, abdomen is nondistended, there still appears to be tenderness at right and left upper quadrants bilaterally Extremities: No evidence of LE edema, - Calf tenderness Assessment and plan: Abdominal pain / Diarrhea - possibly 2/2 gastroenteritis, possibly 2/2 malignancy, unlikely 2/2 inflammatory etiology, unlikely 2/2 chemotherapy - She continued to experience diarrhea with mild abdominal pain - Discuss with oncology, Dr. delonte Whitlock. Patient last received chemotherapy (TCH: Docetaxel + Carboplatin + Trastuzumab) mid-March - Physical with some abdominal tenderness appreciated diffusely, more prominent at upper quadrants - No leukocytosis or lactic acidosis - No elevation in CRP / ESR - GI panel 06/11: Negative - CT abdomen / pelvis 06/08: Possible SMA syndrome, mucosal lesion / spasms of proximal right colon - CT abdomen / pelvis 06/13: Focal persistent stricture in the proximal transverse colon. This is of wall thickening, unchanged from the prior study. Neoplasm is a primary diagnostic concern. Consider colonoscopy or barium enema. See second focal zone of luminal narrowing in the distal transverse colon, not present previously, possibly peristalsis. The entire small bowel is mildly distended and fluid-filled. There are no air-fluid levels. This could be a normal variant or ileus. No evidence of obstruction. The entire colon is fecal filled and mildly distended to the rectosigmoid junction. No focal stricture of the distal colon is identified. - Surgery (Dr. Ocasio) has been called on consultation; appreciate their help; plan for colonoscopy inpatient - Anticipate [facility] Constipation on imaging - Patient has noted that she expenses, continuous watery diarrhea - Imaging stated above, indicates that colon is fecal filled - At this point, I discussed with surgery, and we will hold off on giving any bowel regimen Bilateral Breast CA - L: Ductal Carcinoma, 2012 and R: 2018 - s/p chemotherapy; Last dose Mid-March - Recent port placement for chemotherapy for new cancer Hx of C. diff colitis (x3) - GI panel negative GI prophylaxis - c/w Protonix DVT prophylaxis - c/w SCDs/TEDs Disposition: - Awaiting possible colonoscopy / surgical clearance VS,Fishbone, I+O VS, Fishbone, I+O Laboratory Tests 06/15/18 05:21 Red Blood Count 3.81 L, Mean Corpuscular Volume 92.9, Mean Corpuscular Hemoglobin 29.4, Mean Corpuscular Hemoglobin Concent 31.6 L, Red Cell Distribution Width 14.1, Neutrophils (%) (Auto) 38.3, Lymphocytes (%) (Auto) 52.3 H, Monocytes (%) (Auto) 7.8 H, Eosinophils (%) (Auto) 0.8, Basophils (%) (Auto) 0.4, Neutrophils # (Auto) 2.8, Lymphocytes # (Auto) 3.8, Monocytes # (Auto) 0.6, Eosinophils # (Auto) 0.1, Basophils # (Auto) 0.0, Calcium Level 8.3 L Vital Signs Date Time Temp Pulse Resp B/P (MAP) Pulse Ox O2 Delivery O2 Flow Rate FiO2 06/15/18 14:00 98.0 92 18 132/86 (101) 95 06/11/18 16:12 Room Air I&O- Last 24 Hours up to 6 AM 06/15/18 06:00 Intake Total 2580 ml Output Total 5800 ml Balance -3220 ml ADY SALES MD Jun 15, 2018 15:10
[2018-06-15] MEDS: ATORVASTATIN 20 MG TAB PO SCH (20:38)
[2018-06-15] MEDS: MULTIVITAMINS/MINERALS THERAP 1 TAB PO SCH (20:38)
[2018-06-15 22:00] VITALS: BP 128/75
[2018-06-16] MEDS: MORPHINE 4 MG/ML 1ML VIAL/SYRINGE (J2270) IV PRN ×4 (01:28→20:42)
[2018-06-16] MEDS: NS 1,000 ML IV SCH (04:59)
[2018-06-16] MEDS: LEVOTHYROXINE 150MCG TABLET (0.15MG) PO SCH (04:59)
[2018-06-16 06:00] VITALS: BP 119/84
[2018-06-16 06:30] LABS: BASO % 0.6 % (0.0-1.0); EOS # 0.1 10^3/uL (0.0-0.50); EOS % 0.8 % (0.0-3.0); HEMATOCRIT 37.6 % (36.0-47.0); HEMOGLOBIN 11.9 g/dl (12.0-15.5); LYMPH # 3.3 10^3/uL (1.5-4.5); LYMPH % 46.6 % (24.0-44.0); MEAN CORPUSCULAR HEMOGLOBIN 29.5 pg (27.0-33.0); MEAN CORPUSCULAR HGB CONC 31.6 g/dl (32.0-36.5); MEAN CORPUSCULAR VOLUME 93.3 fl (80.0-96.0); MONO # 0.6 10^3/uL (0.0-0.8); MONO % 7.7 % (0.0-5.0); NEUTROPHILS # 3.1 10^3/uL (1.8-7.7); NEUTROPHILS % 44.2 % (36.0-66.0); PLATELET COUNT, AUTOMATED 213 10^3/uL (150-450); RED BLOOD COUNT 4.03 10^6/uL (4.00-5.40); WHITE BLOOD COUNT 7.1 10^3/uL (4.0-10.0)
[2018-06-16 06:49] LABS: BLOOD UREA NITROGEN 8 MG/DL (7-18); CALCIUM LEVEL 8.7 MG/DL (8.5-10.1); CARBON DIOXIDE LEVEL 28 MEQ/L (21-32); CHLORIDE LEVEL 107 MEQ/L (98-107); CREATININE FOR GFR 0.77 MG/DL (0.55-1.30); GLOMERULAR FILTRATION RATE > 60.0 (>51); GLUCOSE, FASTING 104 MG/DL (70-100); MAGNESIUM LEVEL 1.9 MG/DL (1.8-2.4); POTASSIUM SERUM 3.8 MEQ/L (3.5-5.1); SODIUM LEVEL 141 MEQ/L (136-145)
[2018-06-16] MEDS: oxyCODONE 5MG TAB PO PRN ×3 (08:44→18:11)
[2018-06-16] MEDS: PANTOPRAZOLE 40MG TAB (PROTONIX) PO SCH (08:44)
[2018-06-16] MEDS: FUROSEMIDE 20 MG TAB PO SCH (08:44)
[2018-06-16] MEDS: DULoxetine 30 MG CAP (CYMBALTA) PO SCH (08:44)
[2018-06-16] MEDS: ADDERALL 5 MG TAB PO SCH (10:45)
--- NOTE | 2018-06-16 12:15 | IPNPDOC ---
Text Note Date of Service The patient was seen on 06/16/18. NOTE Subjective: Patient sits 3-year-old female with a PMHx of Bilateral Breast CA (L: Ductal Carcinoma, 2012; R: 2018) s/p chemotherapy, and Hx of C. diff colitis (x3) who presented to the ER with complaints of diarrhea and abdominal pain. Patient had noted that her right breast was diagnosed with cancer. Port placement early March 2018 and received chemotherapy. Patient was admitted to hospitalist service for abdominal pain and diarrhea. Surgery was called on consultation from admission. Patient was seen and examined at the bedside. Patient noted that she has had a large bowel movement with passage of hard stool followed by soft stool. s till reports abdominal pain. Denies any nausea or vomiting. Has not expense any urinary discomfort. Denies chest pain, shortness of breath or palpitations. Objective: Vitals (See below) General: Lying in bed, no acute distress, comfortable, AAOx3 HEENT: NC, AT CVS: RRR, +S1S2 Lungs: Fair air entry b/l, auscultation does not reveal any evidence of wheezing, rhonchi or rales Abdomen: Thin. Abdomen is soft and nondistended, there is still tenderness appreciated at the right and left upper quadrants Extremities: No evidence of LE edema, - Calf tenderness Assessment and plan: Abdominal pain / Diarrhea - possibly 2/2 gastroenteritis, possibly 2/2 malignancy, unlikely 2/2 inflammatory etiology, unlikely 2/2 chemotherapy - She continued to experience diarrhea; has had passage of hard stool, followed by soft stool - Discuss with oncology, Dr. delonte Whitlock; patient last received chemotherapy (TCH: Docetaxel + Carboplatin + Trastuzumab) mid-March - Physical with tenderness still appreciated - No leukocytosis or lactic acidosis - No elevation in CRP / ESR - GI panel 06/11: Negative - CT abdomen / pelvis 06/08: Possible SMA syndrome, mucosal lesion / spasms of proximal right colon - CT abdomen / pelvis 06/13: Focal persistent stricture in the proximal transverse colon. This is of wall thickening, unchanged from the prior study. Neoplasm is a primary diagnostic concern. Consider colonoscopy or barium enema. See second focal zone of luminal narrowing in the distal transverse colon, not present previously, possibly peristalsis. The entire small bowel is mildly distended and fluid-filled. There are no air-fluid levels. This could be a normal variant or ileus. No evidence of obstruction. The entire colon is fecal filled and mildly distended to the rectosigmoid junction. No focal stricture of the distal colon is identified. - Surgery (Dr. Ocasio) has been called on consultation; appreciate their help; plan for colonoscopy inpatient - anticipated for Monday Constipation on imaging - Patient has noted passage of hard stool followed by soft stool - Imaging stated above, indicates that colon is fecal filled - At this point, I discussed with surgery, and we will hold off on giving any bowel regimen Bilateral Breast CA - L: Ductal Carcinoma, 2012 and R: 2018 - s/p chemotherapy; Last dose Mid-March - Recent port placement for chemotherapy for new cancer Hx of C. diff colitis (x3) - GI panel negative GI prophylaxis - c/w Protonix DVT prophylaxis - c/w SCDs/TEDs Disposition: - Awaiting possible colonoscopy possibly Monday / surgical clearance VS,Fishbone, I+O VS, Fishbone, I+O Laboratory Tests 06/16/18 06:02 Red Blood Count 4.03, Mean Corpuscular Volume 93.3, Mean Corpuscular Hemoglobin 29.5, Mean Corpuscular Hemoglobin Concent 31.6 L, Red Cell Distribution Width 14.0, Neutrophils (%) (Auto) 44.2, Lymphocytes (%) (Auto) 46.6 H, Monocytes (%) (Auto) 7.7 H, Eosinophils (%) (Auto) 0.8, Basophils (%) (Auto) 0.6, Neutrophils # (Auto) 3.1, Lymphocytes # (Auto) 3.3, Monocytes # (Auto) 0.6, Eosinophils # (Auto) 0.1, Basophils # (Auto) 0.0, Calcium Level 8.7 Vital Signs Date Time Temp Pulse Resp B/P (MAP) Pulse Ox O2 Delivery O2 Flow Rate FiO2 06/16/18 10:59 16 06/16/18 06:00 98.2 18 119/84 (96) 99 06/11/18 16:12 Room Air I&O- Last 24 Hours up to 6 AM 06/16/18 06:00 Intake Total 3630 ml Output Total 5200 ml Balance -1570 ml ADY SALES MD Jun 16, 2018 12:15
[2018-06-16 14:00] VITALS: BP 143/97
[2018-06-16] MEDS: ATORVASTATIN 20 MG TAB PO SCH (20:41)
[2018-06-16] MEDS: MULTIVITAMINS/MINERALS THERAP 1 TAB PO SCH (20:41)
[2018-06-16 22:00] VITALS: BP 140/85
[2018-06-16] MEDS: SIMETHICONE 80 MG CHEW TAB PO PRN (22:44)
[2018-06-17] MEDS: MORPHINE 4 MG/ML 1ML VIAL/SYRINGE (J2270) IV PRN ×2 (00:05→05:20)
[2018-06-17] MEDS: SIMETHICONE 80 MG CHEW TAB PO PRN (02:01)
[2018-06-17] MEDS: oxyCODONE 5MG TAB PO PRN ×4 (02:02→21:34)
[2018-06-17] MEDS: NS 1,000 ML IV SCH ×2 (05:19→09:09)
[2018-06-17] MEDS: LEVOTHYROXINE 150MCG TABLET (0.15MG) PO SCH (05:20)
[2018-06-17 06:00] VITALS: BP 125/69
--- NOTE | 2018-06-17 08:56 | IPN ---
DATE: 06/16/2018 HISTORY: The patient was seen in consultation on June 11 for some abdominal pain at that time of unclear cause. She had reported pain with diarrhea for several weeks. She has a history of Crohn's disease as well as a past history of Clostridium difficile. There was a suggestion from a CT scan that she might have a narrowing in the proximal transverse colon suggestive of a lesion. I was unconvinced of the CT scan finding. She has apparently continued to have some abdominal pain and she had a gastrointestinal tract infectious screening panel that was negative. She had a repeat CT scan on June 13 that was read by the radiologist as suggesting a persistent stricture in the proximal transverse colon. She has been taking some liquids fairly well with excellent urine output recorded. Vital signs show that she has been afebrile over the past several days. Her pulse is somewhat variable between 63 and 103 for the most part. Blood pressure is fine. Intake and output shows that yesterday she had 3300 recorded in with 4200 recorded out. Physical exam shows that the patient is sitting up in the bed looking fairly comfortable at rest. She is alert and oriented. Heart exam shows a regular rate and rhythm. The abdomen appears mildly full. She has bowel sounds present that are fairly active. There is some mild tenderness to palpation, particularly on the right side of the abdomen. Laboratory studies show that today she had a white count of 7, consistent with the last several days of labs. She has a hemoglobin of 12, hematocrit of 38 and platelet count 213,000. Differential count shows 44% neutrophils and 47% lymphocytes. Chemistry profile showed normal electrolytes, BUN, creatinine and glucose. IMPRESSION: The patient continues to have some crampy abdominal pains with diarrhea. I had spoken with I believe Dr. Rojas about next steps. Given the repeat CT scan suggesting a persistent narrowing in the proximal transverse colon, it seems reasonable to assess her colon colonoscopically. My schedule will probably not allow me to accomplish this until June 19. We will perform a bowel prep on Monday and proceed from there. The patient was counseled regarding this plan and is agreeable.
[2018-06-17] MEDS: DULoxetine 30 MG CAP (CYMBALTA) PO SCH (09:08)
[2018-06-17] MEDS: PANTOPRAZOLE 40MG TAB (PROTONIX) PO SCH (09:09)
[2018-06-17] MEDS: FUROSEMIDE 20 MG TAB PO SCH (09:09)
[2018-06-17] MEDS: ADDERALL 5 MG TAB PO SCH (09:09)
[2018-06-17 10:49] LABS: BASO # 0.1 10^3/uL (0.0-0.2); BASO % 0.8 % (0.0-1.0); EOS # 0.1 10^3/uL (0.0-0.50); EOS % 1.2 % (0.0-3.0); HEMATOCRIT 34.2 % (36.0-47.0); HEMOGLOBIN 10.8 g/dl (12.0-15.5); LYMPH # 3.6 10^3/uL (1.5-4.5); MEAN CORPUSCULAR HEMOGLOBIN 29.3 pg (27.0-33.0); MEAN CORPUSCULAR HGB CONC 31.6 g/dl (32.0-36.5); MEAN CORPUSCULAR VOLUME 92.9 fl (80.0-96.0); MONO # 0.7 10^3/uL (0.0-0.8); MONO % 9.8 % (0.0-5.0); NEUTROPHILS # 2.3 10^3/uL (1.8-7.7); NEUTROPHILS % 33.9 % (36.0-66.0); PLATELET COUNT, AUTOMATED 169 10^3/uL (150-450); RED BLOOD COUNT 3.68 10^6/uL (4.00-5.40); WHITE BLOOD COUNT 6.7 10^3/uL (4.0-10.0)
[2018-06-17 11:09] LABS: BLOOD UREA NITROGEN 9 MG/DL (7-18); CALCIUM LEVEL 8.5 MG/DL (8.5-10.1); CARBON DIOXIDE LEVEL 29 MEQ/L (21-32); CHLORIDE LEVEL 108 MEQ/L (98-107); CREATININE FOR GFR 0.72 MG/DL (0.55-1.30); GLOMERULAR FILTRATION RATE > 60.0 (>51); GLUCOSE, FASTING 113 MG/DL (70-100); MAGNESIUM LEVEL 1.9 MG/DL (1.8-2.4); POTASSIUM SERUM 3.9 MEQ/L (3.5-5.1); SODIUM LEVEL 144 MEQ/L (136-145)
[2018-06-17] MEDS: DOCUSATE SODIUM 100 MG CAP PO SCH ×2 (11:21→21:34)
--- NOTE | 2018-06-17 11:57 | IPNPDOC ---
Text Note Date of Service The patient was seen on 06/17/18. NOTE Subjective: Patient sits 3-year-old female with a PMHx of Bilateral Breast CA (L: Ductal Carcinoma, 2012; R: 2018) s/p chemotherapy, and Hx of C. diff colitis (x3) who presented to the ER with complaints of diarrhea and abdominal pain. Patient had noted that her right breast was diagnosed with cancer. Port placement early March 2018 and received chemotherapy. Patient was admitted to hospitalist service for abdominal pain and diarrhea. Surgery was called on consultation from admission. Patient was seen and examined at the bedside. Currently patient notes that she no longer is experiencing diarrhea still has abdominal pain. Denies nausea or v omiting. Denies chest pain, SOB or palpitations. Objective: Vitals (See below) General: Lying in bed, no acute distress, comfortable, AAOx3 HEENT: NC, AT CVS: RRR, +S1S2 Lungs: Fair air entry b/l, no evidence of rhonchi, wheezing, rales Abdomen: Soft, nondistended tenderness appreciated at right upper/lower quadrant Extremities: LE edema not appreciated, - Calf tenderness Assessment and plan: Abdominal pain / Diarrhea - possibly 2/2 gastroenteritis, possibly 2/2 malignancy, unlikely 2/2 inflammatory etiology, unlikely 2/2 chemotherapy - She continued to experience diarrhea; has had passage of hard stool, followed by soft stool - Discuss with oncology, Dr. delonte Whitlock; patient last received chemotherapy (TCH: Docetaxel + Carboplatin + Trastuzumab) mid-March - Physical with tenderness still appreciated - No leukocytosis or lactic acidosis - No elevation in CRP / ESR - GI panel 06/11: Negative - CT abdomen / pelvis 06/08: Possible SMA syndrome, mucosal lesion / spasms of proximal right colon - CT abdomen / pelvis 06/13: Focal persistent stricture in the proximal transverse colon. This is of wall thickening, unchanged from the prior study. Neoplasm is a primary diagnostic concern. Consider colonoscopy or barium enema. See second focal zone of luminal narrowing in the distal transverse colon, not present previously, possibly peristalsis. The entire small bowel is mildly distended and fluid-filled. There are no air-fluid levels. This could be a normal variant or ileus. No evidence of obstruction. The entire colon is fecal filled and mildly distended to the rectosigmoid junction. No focal stricture of the distal colon is identified. - Surgery (Dr. Ocasio) has been called on consultation; Plan for colonoscopy on Monday will bowel prep started on Monday Constipation on imaging - Patient has noted that she's not had a bowel movement this morning - Imaging was consistent with fecal filled colon - Will start only stool softener; however will be receiving bowel prep tomorrow Bilateral Breast CA - L: Ductal Carcinoma, 2013 and R: 2018 - s/p chemotherapy; Last dose Mid-March - Recent port placement for chemotherapy for new cancer Hx of C. diff colitis (x3) - GI panel negative GI prophylaxis - c/w Protonix DVT prophylaxis - c/w SCDs/TEDs Disposition: - Awaiting possible colonoscopy possibly Monday / surgical clearance VS,Fishbone, I+O VS, Fishbone, I+O Laboratory Tests 06/17/18 10:22 Red Blood Count 3.68 L, Mean Corpuscular Volume 92.9, Mean Corpuscular Hemoglobin 29.3, Mean Corpuscular Hemoglobin Concent 31.6 L, Red Cell Distribution Width 14.1, Neutrophils (%) (Auto) 33.9 L, Lymphocytes (%) (Auto) 54.0 H, Monocytes (%) (Auto) 9.8 H, Eosinophils (%) (Auto) 1.2, Basophils (%) (Auto) 0.8, Neutrophils # (Auto) 2.3, Lymphocytes # (Auto) 3.6, Monocytes # (Auto) 0.7, Eosinophils # (Auto) 0.1, Basophils # (Auto) 0.1, Calcium Level 8.5 Vital Signs Date Time Temp Pulse Resp B/P (MAP) Pulse Ox O2 Delivery O2 Flow Rate FiO2 06/17/18 09:38 16 06/17/18 06:00 98.3 93 125/69 (87) 96 06/11/18 16:12 Room Air I&O- Last 24 Hours up to 6 AM 06/17/18 06:00 Intake Total 3100 ml Output Total 4700 ml Balance -1600 ml ADY SALES MD Jun 17, 2018 11:57
[2018-06-17 14:00] VITALS: BP 138/90
[2018-06-17] MEDS: fentaNYL 75 MCG/HR PATCH TOP SCH (18:28)
[2018-06-17] MEDS: MULTIVITAMINS/MINERALS THERAP 1 TAB PO SCH (21:33)
[2018-06-17] MEDS: ATORVASTATIN 20 MG TAB PO SCH (21:35)
[2018-06-17 22:00] VITALS: BP 128/84
[2018-06-18] MEDS: oxyCODONE 5MG TAB PO PRN ×3 (03:17→20:18)
[2018-06-18] MEDS: LEVOTHYROXINE 150MCG TABLET (0.15MG) PO SCH (05:34)
[2018-06-18 06:00] VITALS: BP 101/70
[2018-06-18 06:27] LABS: BASO % 0.4 % (0.0-1.0); EOS # 0.1 10^3/uL (0.0-0.50); EOS % 0.7 % (0.0-3.0); HEMATOCRIT 35.6 % (36.0-47.0); HEMOGLOBIN 11.1 g/dl (12.0-15.5); LYMPH # 3.6 10^3/uL (1.5-4.5); MEAN CORPUSCULAR HEMOGLOBIN 29.3 pg (27.0-33.0); MEAN CORPUSCULAR HGB CONC 31.2 g/dl (32.0-36.5); MEAN CORPUSCULAR VOLUME 93.9 fl (80.0-96.0); MONO # 0.8 10^3/uL (0.0-0.8); MONO % 9.1 % (0.0-5.0); NEUTROPHILS # 3.8 10^3/uL (1.8-7.7); NEUTROPHILS % 46.6 % (36.0-66.0); PLATELET COUNT, AUTOMATED 178 10^3/uL (150-450); RED BLOOD COUNT 3.79 10^6/uL (4.00-5.40); WHITE BLOOD COUNT 8.3 10^3/uL (4.0-10.0)
[2018-06-18 06:52] LABS: BLOOD UREA NITROGEN 15 MG/DL (7-18); CALCIUM LEVEL 8.5 MG/DL (8.5-10.1); CARBON DIOXIDE LEVEL 32 MEQ/L (21-32); CHLORIDE LEVEL 104 MEQ/L (98-107); GLOMERULAR FILTRATION RATE > 60.0 (>51); GLUCOSE, FASTING 105 MG/DL (70-100); MAGNESIUM LEVEL 2.1 MG/DL (1.8-2.4); SODIUM LEVEL 140 MEQ/L (136-145)
[2018-06-18] MEDS: DULoxetine 30 MG CAP (CYMBALTA) PO SCH (10:12)
[2018-06-18] MEDS: ADDERALL 5 MG TAB PO SCH (10:12)
[2018-06-18] MEDS: MORPHINE 4 MG/ML 1ML VIAL/SYRINGE (J2270) IV PRN ×3 (10:12→22:57)
[2018-06-18] MEDS: PANTOPRAZOLE 40MG TAB (PROTONIX) PO SCH (10:13)
[2018-06-18] MEDS: FUROSEMIDE 20 MG TAB PO SCH (10:13)
[2018-06-18] MEDS: NS 1,000 ML IV SCH ×2 (10:13→20:18)
--- NOTE | 2018-06-18 11:50 | IPNPDOC ---
Text Note Date of Service The patient was seen on 06/18/18. NOTE Subjective: Patient sits 3-year-old female with a PMHx of Bilateral Breast CA (L: Ductal Carcinoma, 2012; R: 2018) s/p chemotherapy, and Hx of C. diff colitis (x3) who presented to the ER with complaints of diarrhea and abdominal pain. Patient had noted that her right breast was diagnosed with cancer. Port placement early March 2018 and received chemotherapy. Patient was admitted to hospitalist service for abdominal pain and diarrhea. Surgery was called on consultation from admission. Patient was seen and examined at the bedside. Patient notes that she is still experiencing abdominal pain. Denies any N/V. Still experiences diarrhea, that st arted up again overnight. Denies CP, SOB or palpitations. Objective: Vitals (See below) General: Lying in bed, no acute distress, comfortable, AAOx3 HEENT: NC, AT CVS: RRR, +S1S2 Lungs: Fair air entry b/l, also evidence of rhonchi, rales or wheezing Abdomen: Soft, Non-distended, tenderness appreciated at left upper quadrant Extremities: LE edema not appreciated, - Calf tenderness Assessment and plan: Abdominal pain / Diarrhea - possibly 2/2 gastroenteritis, possibly 2/2 malignancy, unlikely 2/2 inflammatory etiology, unlikely 2/2 chemotherapy - She continued to experience diarrhea; has had passage of hard stool, followed by soft stool - Discuss with oncology, Dr. delonte Whitlock; patient last received chemotherapy (TCH: Docetaxel + Carboplatin + Trastuzumab) mid-March - Physical with tenderness still appreciated - No leukocytosis or lactic acidosis - No elevation in CRP / ESR - GI panel 06/11: Negative - CT abdomen / pelvis 06/08: Possible SMA syndrome, mucosal lesion / spasms of proximal right colon - CT abdomen / pelvis 06/13: Focal persistent stricture in the proximal transverse colon. This is of wall thickening, unchanged from the prior study. Neoplasm is a primary diagnostic concern. Consider colonoscopy or barium enema. See second focal zone of luminal narrowing in the distal transverse colon, not present previously, possibly peristalsis. The entire small bowel is mildly distended and fluid-filled. There are no air-fluid levels. This could be a normal variant or ileus. No evidence of obstruction. The entire colon is fecal filled and mildly distended to the rectosigmoid junction. No focal stricture of the distal colon is identified. - Surgery (Dr. Ocasio) has been called on consultation; Plan for colonoscopy tomorrow Constipation on imaging - Patient diarrhea has resumed - Imaging was consistent with fecal filled colon - Bowel prep today Bilateral Breast CA - L: Ductal Carcinoma, 2012 and R: 2018 - s/p chemotherapy; Last dose Mid-March - Recent port placement for chemotherapy for new cancer Hx of C. diff colitis (x3) - GI panel negative GI prophylaxis - c/w Protonix DVT prophylaxis - c/w SCDs/TEDs Disposition: - Awaiting possible colonoscopy possibly Monday / Surgical clearance VS,Fishbone, I+O VS, Fishbone, I+O Laboratory Tests 06/18/18 06:02 Red Blood Count 3.79 L, Mean Corpuscular Volume 93.9, Mean Corpuscular Hemoglobin 29.3, Mean Corpuscular Hemoglobin Concent 31.2 L, Red Cell Distribution Width 14.2, Neutrophils (%) (Auto) 46.6, Lymphocytes (%) (Auto) 43.0, Monocytes (%) (Auto) 9.1 H, Eosinophils (%) (Auto) 0.7, Basophils (%) (Auto) 0.4, Neutrophils # (Auto) 3.8, Lymphocytes # (Auto) 3.6, Monocytes # (Auto) 0.8, Eosinophils # (Auto) 0.1, Basophils # (Auto) 0.0, Calcium Level 8.5 Vital Signs Date Time Temp Pulse Resp B/P (MAP) Pulse Ox O2 Delivery O2 Flow Rate FiO2 06/18/18 10:22 16 06/18/18 06:00 96.8 97 101/70 (80) 94 I&O- Last 24 Hours up to 6 AM 06/18/18 06:00 Intake Total 2360 ml Output Total 4450 ml Balance -2090 ml ADY SALES MD Jun 18, 2018 11:50
[2018-06-18 14:00] VITALS: BP 131/83
[2018-06-18] MEDS: ATORVASTATIN 20 MG TAB PO SCH (20:12)
[2018-06-18] MEDS ORDERED: GOLYTELY SOLN 4000 ML BTL PO ONE (21:00)
[2018-06-18 22:00] VITALS: BP 117/78
[2018-06-19] MEDS: MORPHINE 4 MG/ML 1ML VIAL/SYRINGE (J2270) IV PRN ×2 (03:47→08:51)
[2018-06-19] MEDS: LEVOTHYROXINE 150MCG TABLET (0.15MG) PO SCH (05:10)
[2018-06-19 06:00] VITALS: BP 111/69
[2018-06-19 06:08] LABS: BASO % 0.6 % (0.0-1.0); EOS % 0.6 % (0.0-3.0); HEMOGLOBIN 11.3 g/dl (12.0-15.5); LYMPH # 1.8 10^3/uL (1.5-4.5); LYMPH % 37.7 % (24.0-44.0); MEAN CORPUSCULAR HEMOGLOBIN 29.4 pg (27.0-33.0); MEAN CORPUSCULAR HGB CONC 31.4 g/dl (32.0-36.5); MEAN CORPUSCULAR VOLUME 93.5 fl (80.0-96.0); MONO # 0.5 10^3/uL (0.0-0.8); MONO % 9.6 % (0.0-5.0); NEUTROPHILS # 2.5 10^3/uL (1.8-7.7); NEUTROPHILS % 51.1 % (36.0-66.0); PLATELET COUNT, AUTOMATED 169 10^3/uL (150-450); RED BLOOD COUNT 3.85 10^6/uL (4.00-5.40); WHITE BLOOD COUNT 4.9 10^3/uL (4.0-10.0)
[2018-06-19 06:34] LABS: BLOOD UREA NITROGEN 8 MG/DL (7-18); CALCIUM LEVEL 8.5 MG/DL (8.5-10.1); CARBON DIOXIDE LEVEL 30 MEQ/L (21-32); CHLORIDE LEVEL 107 MEQ/L (98-107); CREATININE FOR GFR 0.74 MG/DL (0.55-1.30); GLOMERULAR FILTRATION RATE > 60.0 (>51); GLUCOSE, FASTING 98 MG/DL (70-100); MAGNESIUM LEVEL 1.9 MG/DL (1.8-2.4); POTASSIUM SERUM 3.7 MEQ/L (3.5-5.1); SODIUM LEVEL 144 MEQ/L (136-145)
[2018-06-19] MEDS: ADDERALL 5 MG TAB PO SCH (08:49)
[2018-06-19] MEDS: DULoxetine 30 MG CAP (CYMBALTA) PO SCH (08:50)
[2018-06-19] MEDS: FUROSEMIDE 20 MG TAB PO SCH (08:50)
[2018-06-19] MEDS: PANTOPRAZOLE 40MG TAB (PROTONIX) PO SCH (08:50)
[2018-06-19] MEDS: NS 1,000 ML IV SCH (11:28)
[2018-06-19] MEDS: oxyCODONE 5MG TAB PO PRN ×3 (11:29→21:19)
[2018-06-19] MEDS ORDERED: LIDOCAINE 2% INJ 100 MG/5 ML SDV (FOR ANES.) As Ordered ONE (12:55)
[2018-06-19] MEDS ORDERED: PROPOFOL 200 MG/20 ML VIAL As Ordered ONE ×3 (12:56→14:20)
[2018-06-19] MEDS ORDERED: PHENYLephrine HCL 500 MCG/5 ML (100MCG/ML) SYRINGE (J2370) As Ordered ONE (14:16)
--- NOTE | 2018-06-19 14:43 | ROOR ---
Patient Name: Angela Long Procedure Date: 06/19/2018 12:28 PM Date of : 1965 Age: 53 Room: [facility] Gender: Female Note Status: Finalized Procedure: Colonoscopy Indications: Abdominal pain, Chronic diarrhea, Abnormal CT of the GI tract, Abdominal CT suggested narrowing in the proximal transverse colon. Providers: Aurelio Ocasio MD Referring MD: 2. Inpatient 2. Inpatient Requesting Provider: Medicines: Monitored Anesthesia Care Complications: No immediate complications. Procedure: Pre-Anesthesia Assessment: - Prior to the procedure, a History and Physical was performed, and patient medications and allergies were reviewed. The patient is competent. The risks and benefits of the procedure and the sedation options and risks were discussed with the patient. All questions were answered and informed consent was obtained. Patient identification and proposed procedure were verified by the physician, the nurse and the curator of education in the procedure room. Mental Status Examination: alert and oriented. Airway Examination: normal oropharyngeal airway and neck mobility. CV Examination: regular rate and rhythm. Prophylactic Antibiotics: The patient does not require prophylactic antibiotics. Prior Anticoagulants: The patient has taken no previous anticoagulant or antiplatelet agents. ASA Grade Assessment: II - A patient with mild systemic disease. After reviewing the risks and benefits, the patient was deemed in satisfactory condition to undergo the procedure. The anesthesia plan was to use monitored anesthesia care (MAC). Immediately prior to administration of medications, the patient was re-assessed for adequacy to receive sedatives. The heart rate, respiratory rate, oxygen saturations, blood pressure, adequacy of pulmonary ventilation, and response to care were monitored throughout the procedure. The physical status of the patient was re-assessed after the procedure. The Colonoscope was introduced through the anus and advanced to the cecum, identified by appendiceal orifice and ileocecal valve. The colonoscopy was performed with moderate difficulty due to poor bowel prep. Successful completion of the procedure was aided by lavage. The patient tolerated the procedure well. Findings: The perianal and digital rectal examinations were normal. A large amount of liquid stool was found in the entire colon, Areas of the mucosa were obscured and small polyps could easily have been missed. Irrigation was used throughout. No gross abnormalities were seen and the visualized mucosa appeared normal. Multiple mucosal biopsies were obtained throughout the colon. Biopsies were taken with a cold forceps for histology. Estimated blood loss was minimal. Impression: - Stool in the entire examined colon. - The examination was otherwise normal. - Normal mucosa in the entire examined colon. Biopsied. Recommendation: - Return patient to [facility] for ongoing care. Aurelio Ocasio MD Aurelio Ocasio MD 06/19/2018 2:43:21 PM This report has been signed electronically. Number of Addenda: 0 Note Initiated On: 06/19/2018 12:28 PM Estimated Blood Loss: Estimated blood loss was minimal. Estimated blood loss was minimal.
[2018-06-19 16:00] VITALS: BP 131/78
--- NOTE | 2018-06-19 16:33 | IPN ---
DATE: 06/18/2018 HISTORY The patient was admitted on June 11 with a history of diarrhea and some crampy abdominal pain. A CT scan done prior to admission suggested a narrowing in the proximal transverse colon. Alternatively, this may have represented spasm only. During her stay she has had a repeat CT scan done, which again showed areas of narrowing, one of which seem to correspond to the same area noted previously. She is now going to have a colonoscopy for evaluation of this area in particular. Vital signs: The patient has been afebrile and her blood pressure is good with normal room air oxygen saturations. Intake and output shows that yesterday she had 2800 recorded in with 4500 recorded out. She reports no significant change in her status. PHYSICAL EXAMINATION: Physical exam shows that the abdomen is somewhat full but soft and without significant tenderness. Laboratory studies today show white count of 8, hemoglobin 11, hematocrit 36 and platelet count of 178,000. Differential count is normal. Chemistry profile shows normal electrolytes, BUN, creatinine and glucose. IMPRESSION: The patient is having some diarrhea and crampy abdominal pain with a questionable area of stricture in the proximal transverse colon. PLAN: The patient was counseled for colonoscopy to be performed on the . She will have a bowel prep with Daniele bloom.
--- NOTE | 2018-06-19 16:44 | IPNPDOC ---
Date Seen The patient was seen on 06/19/18. Progress Note Subjective: Patient continues to complain of pain in her belly she otherwise denies any other specific complaints Objective: Vitals (See below) General: Lying in bed watching television, no acute distress, comfortable, AAOx3 HEENT: NC, AT, cranial nerves grossly intact CVS: RRR, +S1S2 Lungs: Fair air entry b/l, also evidence of rhonchi, rales or wheezing Abdomen: Soft, Non-distended, no tenderness appreciated to soft palpation abdomen is quite benign Extremities: No LE edema not appreciated, - Calf tenderness Assessment and plan: Abdominal pain / Diarrhea - possibly 2/2 gastroenteritis versus malignancy versus microscopic colitis versus chemotherapy. Dr. Ocasio schedule the patient for colonoscopy today she has undergone her prep previously the patient has completed chemotherapy and mid-March so I suspect this is less likely playing a role. It does not appear to be infectious in etiology we have no clear etiolo gy for her pain at this moment following colonoscopy should be negative would consider discontinuing IV morphine should she require more pain medications will consider pain management consult she otherwise appears be quite stable She did have a CT abdomen / pelvis 06/08: That revealed Possible SMA syndrome which can certainly cause her some pain as well as a CT abdomen / pelvis 06/13: Focal persistent stricture in the proximal transverse colon which I further wish to have further evaluated during her colonoscopy. Neoplasm is a primary diagnostic concern. General surgery help is greatly appreciated Bilateral Breast CA - L: Ductal Carcinoma, 2012 and R: 2018 - s/p chemotherapy; Last dose Mid-March - Recent port placement for chemotherapy for new cancer s Hx of C. diff colitis (x3) - GI panel negative DVT prophylaxis - c/w SCDs/TEDs Disposition: -Pending colonoscopy and Gen. surgery evaluation VS, I&O, 24H, Fishbone Vital Signs/I&O Vital Signs Date Time Temp Pulse Resp B/P (MAP) Pulse Ox O2 Delivery O2 Flow Rate FiO2 06/19/18 16:00 97.2 90 16 131/78 (95) 100 I&O- Last 24 Hours up to 6 AM 06/19/18 06:00 Intake Total 3160 ml Output Total 4200 ml Balance -1040 ml Laboratory Data 24H LABS Laboratory Tests 2 06/19/18 05:55: Immature Granulocyte % (Auto) 0.4, White Blood Count 4.9, Red Blood Count 3.85L, Hemoglobin 11.3L, Hematocrit 36.0, Mean Corpuscular Volume 93.5, Mean Corpuscular Hemoglobin 29.4, Mean Corpuscular Hemoglobin Concent 31.4L, Red Cell Distribution Width 14.1, Platelet Count 169, Neutrophils (%) (Auto) 51.1, Lymphocytes (%) (Auto) 37.7, Monocytes (%) (Auto) 9.6H, Eosinophils (%) (Auto) 0.6, Basophils (%) (Auto) 0.6, Neutrophils # (Auto) 2.5, Lymphocytes # (Auto) 1.8, Monocytes # (Auto) 0.5, Eosinophils # (Auto) 0.0, Basophils # (Auto) 0.0, Nucleated Red Blood Cells % (auto) 0.0, Anion Gap 7L, Glomerular Filtration Rate > 60.0, Blood Urea Nitrogen 8, Creatinine 0.74, Sodium Level 144, Potassium Level 3.7, Chloride Level 107, Carbon Dioxide Level 30, Calcium Level 8.5, Magnesium Level 1.9 CBC/BMP Laboratory Tests 06/19/18 05:55 Red Blood Count 3.85 L, Mean Corpuscular Volume 93.5, Mean Corpuscular Hemoglobin 29.4, Mean Corpuscular Hemoglobin Concent 31.4 L, Red Cell Distribution Width 14.1, Neutrophils (%) (Auto) 51.1, Lymphocytes (%) (Auto) 37.7, Monocytes (%) (Auto) 9.6 H, Eosinophils (%) (Auto) 0.6, Basophils (%) (Auto) 0.6, Neutrophils # (Auto) 2.5, Lymphocytes # (Auto) 1.8, Monocytes # (Auto) 0.5, Eosinophils # (Auto) 0.0, Basophils # (Auto) 0.0, Calcium Level 8.5 Microbiology Microbiology 06/11/18 Blood Culture - Final, Complete NO GROWTH AFTER 5 DAYS 06/11/18 Blood Culture - Final, Complete NO GROWTH AFTER 5 DAYS 06/11/18 Stool Occult Blood (JERMAINE) - Final, Complete 06/11/18 Gastrointestinal Tract Panel (PCR) - Final, Complete ZIYAD ISSA MD Jun 19, 2018 16:44
[2018-06-19] MEDS: MULTIVITAMINS/MINERALS THERAP 1 TAB PO SCH (21:18)
[2018-06-19] MEDS: ATORVASTATIN 20 MG TAB PO SCH (21:18)
[2018-06-19 22:00] VITALS: BP 131/78
[2018-06-20] MEDS: oxyCODONE 5MG TAB PO PRN ×2 (04:39→10:14)
[2018-06-20] MEDS: LEVOTHYROXINE 150MCG TABLET (0.15MG) PO SCH (05:23)
[2018-06-20 06:00] VITALS: BP 105/64
[2018-06-20 06:21] LABS: BASO % 0.4 % (0.0-1.0); EOS # 0.1 10^3/uL (0.0-0.50); EOS % 0.8 % (0.0-3.0); HEMATOCRIT 33.8 % (36.0-47.0); HEMOGLOBIN 10.6 g/dl (12.0-15.5); LYMPH % 39.1 % (24.0-44.0); MEAN CORPUSCULAR HEMOGLOBIN 29.5 pg (27.0-33.0); MEAN CORPUSCULAR HGB CONC 31.4 g/dl (32.0-36.5); MEAN CORPUSCULAR VOLUME 94.2 fl (80.0-96.0); MONO # 0.6 10^3/uL (0.0-0.8); MONO % 8.1 % (0.0-5.0); NEUTROPHILS # 3.9 10^3/uL (1.8-7.7); NEUTROPHILS % 51.5 % (36.0-66.0); PLATELET COUNT, AUTOMATED 159 10^3/uL (150-450); RED BLOOD COUNT 3.59 10^6/uL (4.00-5.40); WHITE BLOOD COUNT 7.6 10^3/uL (4.0-10.0)
[2018-06-20 06:39] LABS: BLOOD UREA NITROGEN 6 MG/DL (7-18); CALCIUM LEVEL 8.4 MG/DL (8.5-10.1); CARBON DIOXIDE LEVEL 30 MEQ/L (21-32); CHLORIDE LEVEL 107 MEQ/L (98-107); CREATININE FOR GFR 0.82 MG/DL (0.55-1.30); GLOMERULAR FILTRATION RATE > 60.0 (>51); GLUCOSE, FASTING 123 MG/DL (70-100); MAGNESIUM LEVEL 1.9 MG/DL (1.8-2.4); POTASSIUM SERUM 3.6 MEQ/L (3.5-5.1); SODIUM LEVEL 143 MEQ/L (136-145)
[2018-06-20 08:41] VITALS: BP 106/55
[2018-06-20] MEDS: PANTOPRAZOLE 40MG TAB (PROTONIX) PO SCH (09:35)
[2018-06-20] MEDS: DULoxetine 30 MG CAP (CYMBALTA) PO SCH (09:35)
[2018-06-20] MEDS: FUROSEMIDE 20 MG TAB PO SCH (09:36)
[2018-06-20] MEDS: ADDERALL 5 MG TAB PO SCH (10:14)
[2018-06-20] MEDS ORDERED: SODIUM CHLORIDE 0.9% INJ 10 ML SYR IV PRN (14:15)
[2018-06-21] MEDS ORDERED: SODIUM CHLORIDE 0.9% INJ 10 ML SYR IV SCH (09:00)
--- NOTE | 2018-06-21 09:38 | DSES ---
DATE OF ADMISSION: 06/11/2018 DATE OF DISCHARGE: 06/20/2018 DISCHARGE DIAGNOSIS: Chronic diarrhea. SECONDARY DIAGNOSIS: History of breast cancer. History of Clostridium difficile colitis. HOSPITAL COURSE: The patient is a 53-year-old female who presented with diarrhea. There was no clear etiology identified. Did not appear to be infectious. There was some concern for SMA syndrome. She was seen by Dr. Ocasio of general surgery as there was also concern for a possible colonic stricture. She did have a colonoscopy which did not reveal any stricture. It was a poor prep but no obvious etiologies were found so biopsies were taken. She was found to not have Clostridium difficile. She restated that she was on Probiotic at home that was not helping and stated that her diarrhea started after a course of antibiotics approximately 1 month ago. She also stated that Imodium was not helpful for her as well. SUBJECTIVE: This morning, patient tells me that she is feeling better. Pain is controlled. She is still having diarrhea with approximately four bowel movements per day but she is staying well hydrated and her pain has improved. She has no specific complaints at this time. OBJECTIVE: Vital signs: Temperature 97.6, platelets 159. Chemistry panel: Sodium 143, potassium 3.6, chloride 107, bicarbonate 30, BUN 6, creatinine 0.8. Microbiology: GI and PCR panel negative. Blood cultures were negative. Stool occult for blood was also negative. Pathology pharmacologically is currently pending. She had a CT scan on the at the time of her admission that revealed focal persistent stricture in the proximal transverse colon. ASSESSMENT AND PLAN: This is a 53-year-old female with 1 month of diarrhea of unclear etiology. PROBLEMS: 1. Diarrhea for 1 month etiology. She denies any recent medication changes or increasing in her Adderall dosing. She states it was following a course of antibiotics which she had been on a Probiotic at home without benefit. She does not have Clostridium difficile or it does not appear to be an infectious etiology. Colonoscopy was fairly unremarkable other than a poor prep. Biopsies were taken. Certainly given her age it could be a microscopic colitis. For the time being, her symptoms appear to be controlled. Her pain controlled. Her electrolytes stable. She is maintaining good hydration with oral intake. I spoke with Dr. Ocasio who feels that she can continue her evaluation on the outpatient setting in close followup with him and her clinic. Her initial CT scan did reveal a stricture that was not documented on a colonoscopy . 2. History of bilateral breast cancer. She had a recent port placement for chemotherapy. Her last dose of chemotherapy was in mid March. Continue with outpatient followup with oncology. 3. History of Clostridium difficile colitis, Clostridium difficile negative. 4. Deep venous thrombosis (DVT) prophylaxis, sequentials and thromboembolic deterrent stockings (TEDS). DISPOSITION: At this time, she is medically stable. Her clinical symptom is stable. She is to continue workup and evaluation in the outpatient setting with Dr. Ocasio's office. Followup with him within 2 weeks. Followup with her primary care provider within 7 days. Followup with oncology as scheduled. Activity is prior to admission. Her diet is prior to admission. She is to return to the emergency room if symptoms worsen. Medications at time of discharge are unchanged. - Adderall 30 mg daily - atorvastatin 40 mg daily at bedtime - vitamin B12 1000 mcg once a day on - dexamethasone 4 mg as directed during chemo - Duloxetine 50 mg daily - Fentanyl patch 150 mcg every 3 days - furosemide 20 mg daily - Synthroid 300 mcg daily - multivitamin one tablet daily at bedtime - Zofran 8 mg every 6 hours as needed for nausea - oxycodone 15 mg every 4 hours as needed for pain Greater than 30 minutes giving disposition. MTDD
== END 2018-06-20 15:30 | disposition home or self-care (01) | DRG 392 ==
LOC: M ED 11:09 → M ED INP 15:26 → M MSPAV 17:53
PROVIDERS: ADMIT Internal Medicine; ATTEND Internal Medicine
PROC: 0DBH7ZX Excision of Cecum, Via Natural or Artificial Opening, Diagnostic (ICD-10-PCS; principal; 2018-06-19 12:30)
DX: R19.7 Diarrhea, unspecified (principal); R10.812 Left upper quadrant abdominal tenderness; Z85.3 Personal history of malignant neoplasm of breast; Z79.899 Other long term (current) drug therapy; Z87.891 Personal history of nicotine dependence; Z88.0 Allergy status to penicillin; Z88.8 Allergy status to other drugs, medicaments and biological substances; C50.811 Malignant neoplasm of overlapping sites of right female breast; K59.00 Constipation, unspecified

== ENCOUNTER 2018-08-12 20:43 | Emergency (ER) | payer OTHER ==
[~2018-08-12] VITALS: Ht 175.3 cm; Wt 81.0 kg
[~2018-08-12 20:43] MED LIST changes: -/WARF5TA OR; -ACET50TA PO; -ANUSHCSU PR; -ASAC800T2 PO; +ATOR40TA75 PO; -BACTDSTA PO; +BUPR150T18 PO; -BUPR15TASR PO; +COUM1TAB17 OR; -DICY10CA PO; -DULO30CA PO; +DULO30CA9 PO; +FENT75DI18 TD; -FENT75PA TD; +HYDR-2541 PO; +HYDR-4274 PO; +HYDR1SUP3 PR; -HYDR25TAB PO; -HYDRO50TAB PO; +MAPA500T17 PO; -METR-201 PO; +METR-265 PO; +ONDA-227 PO; +SULF1TAB23 PO; -TRIM100T10 PO; +TRIM100T8 PO; -VANC250C2 PO; +VANC250C3 PO; -ZOFR8TAB PO; +[UNRECOGNIZED DRUG - CODE] PO
[2018-08-12] MEDS ORDERED: LOPE1CAP5 PO (20:51)
[2018-08-12] MEDS ORDERED: ONDANSETRON 4MG/2ML VIAL (J2405) IV ONE (21:30)
[2018-08-12] MEDS ORDERED: NS 1,000 ML IV ONE (21:30)
[2018-08-12 22:08] LABS: BASO % 0.5 % (0.0-1.0); EOS % 0.5 % (0.0-3.0); HEMATOCRIT 38.5 % (36.0-47.0); HEMOGLOBIN 12.6 g/dl (12.0-15.5); LYMPH # 3.6 10^3/uL (1.5-4.5); LYMPH % 42.5 % (24.0-44.0); MEAN CORPUSCULAR HEMOGLOBIN 30.2 pg (27.0-33.0); MEAN CORPUSCULAR HGB CONC 32.7 g/dl (32.0-36.5); MEAN CORPUSCULAR VOLUME 92.3 fl (80.0-96.0); MONO # 0.3 10^3/uL (0.0-0.8); MONO % 3.6 % (0.0-5.0); NEUTROPHILS # 4.5 10^3/uL (1.8-7.7); NEUTROPHILS % 52.4 % (36.0-66.0); PLATELET COUNT, AUTOMATED 254 10^3/uL (150-450); RED BLOOD COUNT 4.17 10^6/uL (4.00-5.40); WHITE BLOOD COUNT 8.5 10^3/uL (4.0-10.0)
[2018-08-12] MEDS: MORPHINE 4 MG/ML 1ML VIAL/SYRINGE (J2270) IV PRN ×2 (22:22→23:50)
[2018-08-12 23:05] LABS: ALBUMIN 3.4 GM/DL (3.2-5.2); ALT/SGPT 26 U/L (12-78); BILIRUBIN,DIRECT < 0.1 MG/DL (0.0-0.2); BILIRUBIN,TOTAL 0.2 MG/DL (0.2-1.0); BLOOD UREA NITROGEN 17 MG/DL (7-18); CALCIUM LEVEL 8.5 MG/DL (8.5-10.1); CARBON DIOXIDE LEVEL 24 MEQ/L (21-32); CHLORIDE LEVEL 112 MEQ/L (98-107); CREATININE FOR GFR 0.74 MG/DL (0.55-1.30); GLOMERULAR FILTRATION RATE > 60.0 (>51); GLUCOSE, FASTING 97 MG/DL (70-100); LIPASE 187 U/L (73-393); POTASSIUM SERUM 3.6 MEQ/L (3.5-5.1); SODIUM LEVEL 144 MEQ/L (136-145); TOTAL PROTEIN 6.3 GM/DL (6.4-8.2)
[2018-08-12] MEDS ORDERED: ISOVUE-370 76% 100ML VIAL (Q9967) As Ordered ONE (23:25)
--- NOTE | 2018-08-13 00:30 | REPVR ---
EXAM: CT Abdomen and Pelvis With Contrast EXAM DATE/TIME: 08/12/2018 11:41 PM CLINICAL HISTORY: 53 years old, female; Signs and symptoms; Other: Cramping, diarrhea; Additional info: Abd cramping, diarrhea TECHNIQUE: Imaging protocol: Axial computed tomography images of the abdomen and pelvis with intravenous contrast. Coronal and sagittal reformatted images were created and reviewed. Radiation optimization: All CT scans at this facility use at least one of these dose optimization techniques: automated exposure control; mA and/or kV adjustment per patient size (includes targeted exams where dose is matched to clinical indication); or iterative reconstruction. Contrast material: ISOVUE 373 Contrast volume: 100 ml Contrast route: IV COMPARISON: CT ABD/PEL W/IV ORAL CONTRAS 06/13/2018 3:41 PM FINDINGS: Lower thorax: No acute findings. ABDOMEN: Liver: Normal. No mass. Gallbladder and bile ducts: Surgcally absent.No ductal dilation. Pancreas: Normal. No ductal dilation. Spleen: Normal. No splenomegaly. Adrenals: Normal. No mass. Kidneys and ureters: Normal. No hydronephrosis. Stomach and bowel: Normal. No obstruction. No mucosal thickening. Appendix: No evidence of appendicitis. PELVIS: Bladder: Unremarkable as visualized. Reproductive: Uterus is present. ABDOMEN and PELVIS: Intraperitoneal space: Normal. No free air. No significant fluid collection. Bones/joints: No acute fracture. No dislocation. Soft tissues: Unremarkable. Vasculature: Normal. No abdominal aortic aneurysm. Lymph nodes: Sub cm mesentric root lymph nodes. With mild surrouding ininflammation. IMPRESSION: Sub cm mesentric root lymph nodes. With mild surrouding ininflammation. Electronically signed by: Venice Negrete On 08/13/2018 00:29:56 AM
[2018-08-13] MEDS ORDERED: ONDA8TAB8 PO (00:55)
[2018-08-13] MEDS ORDERED: DICY20TA11 PO (00:55)
[2018-08-13] MEDS ORDERED: fentaNYL 75 MCG/HR PATCH TOP ONE (01:00)
[2018-08-13] MEDS ORDERED: DICYCLOMINE 10 MG CAP PO ONE (01:00)
[2018-08-13 01:24] VITALS: BP 126/73
== END 2018-08-13 01:26 | disposition home or self-care (01) ==
LOC: M ED 20:43
DX: I88.0 Nonspecific mesenteric lymphadenitis (principal); Z86.19 Personal history of other infectious and parasitic diseases; Z87.19 Personal history of other diseases of the digestive system; Z85.3 Personal history of malignant neoplasm of breast; Z79.899 Other long term (current) drug therapy; Z88.0 Allergy status to penicillin; Z88.1 Allergy status to other antibiotic agents; Z88.8 Allergy status to other drugs, medicaments and biological substances; Z91.018 Allergy to other foods; Z87.891 Personal history of nicotine dependence
CPT/HCPCS: 74177; 80048; 80076; 83690; 85025; 93041; 96361; 96374; 96375; 96376; 99285; J2270; J2405; Q9967

== ENCOUNTER → 2018-08-14 | Outpatient (CLI) | payer OTHER ==
[~2018-08-14] MED LIST changes: +LOPE1CAP5 PO
--- NOTE | 2018-08-14 14:53 | RADONC ---
NEW PATIENT CONSULTATION DATE OF SERVICE: 08/14/2018 CHART NUMBER: [id number] DIAGNOSIS: Right breast cancer in a patient with a previous history of left breast cancer (treated). The tumor was noted to be an infiltrating ductal carcinoma diagnosed in October of 2017 and she has received chemotherapy in the form of TCH as well as Taxol and Herceptin. She is now referred for evaluation of local regional adjuvant radiotherapy. STAGE: IA, [id number], ER weakly positive, LA negative, HER2/eduardo positive. ICD-10 code 50.4. ECOG PERFORMANCE STATUS: 0. HISTORY OF PRESENT ILLNESS: The patient is a 53-year-old female whom we have treated previously for a left breast cancer. She was initially treated for a stage IA, [id number], poorly differentiated infiltrating ductal carcinoma of the left breast who presented status post lumpectomy and sentinel lymph node biopsy for consideration of postoperative radiotherapy. We treated the patient to her left breast for total dose of 4860 cGy delivered in 27 fractions over 63 elapsed days from 10/08/2013 through 12/11/2013. The primary site was boosted for an additional 1200 cGy and 6 fractions from 12/12/2013 through 12/19/2013 bringing the total dose to 6060 cGy to the lumpectomy site. She tolerated her radiation quite well with no significant untoward side effects and has been followed with routine followup mammography. A mammogram revealed a suspicious lesion in the right upper quadrant of the right breast which eventually resulted in the biopsy and diagnosis of an infiltrating ductal carcinoma which has been staged a [id number] (Group stage IA). The tumor was noted to be ER weakly positive, LA negative, and HER2/eduardo positive and was diagnosed in October of 2017. She was treated via lumpectomy and completed two and one half cycles of TCH chemotherapy (docetaxel, carboplatin, Herceptin). After two and a half cycles the TCH was complicated by neutropenic sepsis and she was placed on adjuvant weekly paclitaxel and trastuzumab. This treatment was interrupted for 1 week secondary to severe diarrhea. She is now completing her final cycle of Taxol and Herceptin and will presumably continue with Herceptin as per the directions of Dr. Екатерина Whitlock. She comes to us today to initiate her set up for adjuvant radiotherapy. PAST MEDICAL HEALTH: The patient's history is positive for Grave's disease which was treated with radioactive iodine in 1993 and she has as well a history of celiac disease, ulcerative colitis and inflammatory bowel disease. A pulmonary embolism was diagnosed in 2011 and she became septic secondary to a peripheral inserted central catheter line in 2012. A tonsillectomy was performed in the past and she has had left knee surgery as well as , tubal ligation and cholecystectomy. She also carries a history of hypothyroidism and menstrual irregularities. ALLERGIES: PENICILLIN, TORADOL, ENTOCORT. FAMILY HISTORY: Mother had pancreatic cancer and cousin with breast cancer. SOCIAL HISTORY: She is a non smoker, and non drinker. 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 REVIEW OF SYSTEMS: HEENT: She denies any visual disturbances, dizziness, headaches. Lymphatics: Denies any lymphadenopathy. Lungs: Denies difficulty breathing, coughing, sputum production or hemoptysis. Heart: Denies any rhythmic irregularities. She has had echoes approximately every 3 months which have been reported as no significant abnormalities. Abdomen: She reports significant abdominal pain and is on Duragesic patches 150 mcg every 3 days for the pain. She has a past history of chronic inflammatory bowel disease and has chronic diarrhea secondary to this condition. She denies any significant nausea, vomiting, coughing or sputum production. Gynecologic: Denies any dysfunctional uterine bleeding or discharge. Skeletal system: Denies bone pain. Neurologic: She has had some peripheral neuropathy with regards to numbness in her lower extremities and feet but otherwise denies any significant numbness or pain or discomfort. EXAMINATION FINDINGS: Vitals: BP 120/80, temperature 98.1, pulse 100, respirations 16, height 5'9, weight 183.8, O2 saturation 94% on room air. HEENT: Normocephalic. EOMs intact. PERRLA. Fundi benign. Lymphatics: No palpable peripheral lymphadenopathy in the cervical, supraclavicular, axillary or inguinal node chains. Heart: Regular without murmurs. Abdomen: Without evidence of hepatomegaly, masses, deep abdominal tenderness. Extremities: Without cyanosis, clubbing or edema. Neurologic examination: Grossly physiologic and nonfocal. Breast examination: The patient is status post radiotherapy to the left breast and status post lumpectomy involving the right breast with a scar located in the upper outer quadrant. No masses are palpable. IMPRESSION: Stage [id number] infiltrating ductal carcinoma involving the right breast in a patient who has had a previous history of left breast cancer treated with radiotherapy. This patient has recently been under the care of Dr. Екатерина Whitlock and has been treated for her now right breast cancer stage [id number], ER faintly positive, LA negative, HER2/eduardo positive. She has been receiving [facility] chemotherapy which was interrupted after two and a half cycles because of complications and has continued on Herceptin and Taxol. She will finish her chemotherapy shortly and is referred for evaluation of local regional radiotherapy. PLAN OF RADIOTHERAPY: We would recommend a course of radiotherapy to the patient. As she has been treated with radiotherapy before (to the left breast), I would attempt to utilize IMRT for treatment delivery in order to minimize lung exposure and also minimize the potential for overlap from previous radiotherapy torres. Prior to treatment delivery localization would be accomplished upon our CT simulator and treatment portals defined by the use of multiple leaf collimators. The indications and possible side effects of radiotherapy including alternatives have been explained in detail to the patient, she understands and is willing to proceed as outlined. Thank you for allowing us the opportunity of participation in the management of this keyanna patient. cc: MD Gaurang Higuera MD MTDD
== END ==
LOC: M ONCR 09:51
PROVIDERS: ATTEND Radiology Radiation Oncology
DX: C50.919 Malignant neoplasm of unspecified site of unspecified female breast (principal)

== ENCOUNTER → 2018-08-14 | Outpatient (CLI) | payer OTHER ==
--- NOTE | 2018-08-15 06:56 | ECHO ---
DATE OF PROCEDURE: 08/14/2018 DATE OF : 1965 AGE: 53 REFERRING PROVIDER: Dr. Екатерина Whitlock PATIENT LOCATION: Outpatient REASON FOR THE ECHOCARDIOGRAM: Chemotherapy drug monitoring. 2D MEASUREMENTS: IVS: 1.2 cm LV: 4.5 cm LVPW: 1.1 cm LA: 3.8 cm Aorta: 3.1 cm IVC: 1.3 cm DOPPLER MEASUREMENTS: Peak velocity across the aortic valve: 1.2 m/s Peak velocity across the LVOT: 0.84 m/s Mitral E: 0.56 Mitral A: 0.85 Ratio: Less than 1.0 Maximum tricuspid valve velocity: 2.0 m/s 2D COMMENTS: 1. Normal left ventricular size, wall thickness and normal global left ventricular systolic function. The estimated left ventricular systolic ejection fraction is 60-65%. 2. Normal left atrium. Normal right atrium and right ventricle. 3. The atrial septum appeared to be normal without evidence of defect or shunt. 4. Normal aortic root. 5. Trace pericardial effusion seen, no evidence of cardiac tamponade. 6. The aortic valve, mitral valve, tricuspid valve, and pulmonic valve appeared to be normal. The proximal pulmonary artery branches also appeared to be normal in limited views. 7. The inferior vena cava was normal in size, central venous pressure is most likely normal. DOPPLER: It detects trace mitral regurgitation, mild tricuspid regurgitation and trace pulmonic regurgitation. The calculated pulmonary artery systolic pressure was normal, less than 30 mmHg. Abnormal relaxation pattern was noted across the mitral valve leaflets as well as the mitral valve annulus consistent with a delayed relaxation. IMPRESSION: 1. Normal global left ventricular systolic function. There are some features of left ventricular diastolic dysfunction manifested by impaired relaxation, grade I. 2. Trace mitral regurgitation. 3. Mild tricuspid regurgitation with a normal calculated pulmonary artery systolic pressure. 4. Trace pulmonic regurgitation. 5. Trace pericardial effusion noted. No evidence of cardiac tamponade. 6. Prior echocardiogram was done 04/20/2018, no remarkable changes, but at that time the patient was mildly tachycardic and pulmonary artery pressure was higher, mild pulmonary hypertension. Also there was no obvious evidence of increased pericardial fluids.
== END ==
LOC: M CARPUL 08:59
PROVIDERS: ATTEND Internal Medicine Medical Oncology
DX: Z51.81 Encounter for therapeutic drug level monitoring (principal); C50.919 Malignant neoplasm of unspecified site of unspecified female breast; I31.3 Pericardial effusion (noninflammatory)

== ENCOUNTER 2018-09-14 10:27 | Inpatient (IN) | payer MEDICAID, OTHER ==
[~2018-09-14] VITALS: Ht 175.3 cm; Wt 81.5 kg
[~2018-09-14 10:27] MED LIST changes: -ACET-897 PO; -ADDE30TA PO; -LEVA750T7 PO
[2018-09-14 11:10] LABS: VENOUS O2 SATURATION 82.5 % (60.0-80.0); VENOUS PARTIAL PRESSURE CO2 41.7 mmHg (38.0-50.0); VENOUS PARTIAL PRESSURE O2 47.4 mmHg (30.0-50.0); VENOUS PH 7.395 UNITS (7.330-7.430); VENOUS STANDARD HCO3 24.2 MEQ/L; VENOUS TOTAL CO2 26.2 MEQ/L (24.0-28.0)
[2018-09-14 11:13] LABS: BASO # 0.1 10^3/uL (0.0-0.2); BASO % 0.3 % (0.0-1.0); EOS % 0.2 % (0.0-3.0); HEMATOCRIT 31.9 % (36.0-47.0); HEMOGLOBIN 10.5 g/dl (12.0-15.5); LYMPH # 3.2 10^3/uL (1.5-4.5); LYMPH % 17.5 % (24.0-44.0); MEAN CORPUSCULAR HEMOGLOBIN 29.3 pg (27.0-33.0); MEAN CORPUSCULAR HGB CONC 32.9 g/dl (32.0-36.5); MEAN CORPUSCULAR VOLUME 89.1 fl (80.0-96.0); MONO # 0.8 10^3/uL (0.0-0.8); MONO % 4.3 % (0.0-5.0); NEUTROPHILS # 14.3 10^3/uL (1.8-7.7); NEUTROPHILS % 77.3 % (36.0-66.0); PLATELET COUNT, AUTOMATED 258 10^3/uL (150-450); RED BLOOD COUNT 3.58 10^6/uL (4.00-5.40); WHITE BLOOD COUNT 18.5 10^3/uL (4.0-10.0)
[2018-09-14 11:23] LABS: INR 1.13; PROTHROMBIN TIME 14.7 SECONDS (12.1-14.4)
[2018-09-14 11:51] LABS: ALBUMIN 2.8 GM/DL (3.2-5.2); ALT/SGPT 17 U/L (12-78); BILIRUBIN,DIRECT < 0.1 MG/DL (0.0-0.2); BILIRUBIN,TOTAL 0.4 MG/DL (0.2-1.0); BLOOD UREA NITROGEN 12 MG/DL (7-18); CALCIUM LEVEL 8.1 MG/DL (8.5-10.1); CARBON DIOXIDE LEVEL 26 MEQ/L (21-32); CHLORIDE LEVEL 107 MEQ/L (98-107); CK-MB VALUE MASS < 1.0 NG/ML (<3.6); CPK CREATINE PHOSPHOKINASE 48 U/L (26-192); CREATININE FOR GFR 0.75 MG/DL (0.55-1.30); GLOMERULAR FILTRATION RATE > 60.0 (>51); GLUCOSE, FASTING 121 MG/DL (70-100); MB/CK RELATIVE INDEX 2.08 (< OR =4); NT-PRO BNP 395 PG/ML (<125); POTASSIUM SERUM 2.8 MEQ/L (3.5-5.1); SODIUM LEVEL 141 MEQ/L (136-145); TOTAL PROTEIN 6.1 GM/DL (6.4-8.2); TROPONIN I < 0.02 NG/ML (< 0.10)
[2018-09-14] MEDS ORDERED: NS 1,000 ML IV ONE (12:00)
[2018-09-14] MEDS ORDERED: LevoFLOXacin IV 750 MG in APPROPRIATE DILUENT 1 EA IV ONE (12:00)
[2018-09-14] MEDS ORDERED: fentaNYL 100 MCG/2 ML INJECTION (J3010) IV ONE (12:30)
[2018-09-14] MEDS: SODIUM CHLORIDE 0.9% 1000ML IV STA ×2 (12:34→14:07)
[2018-09-14] MEDS ORDERED: DICY20TA11 PO (12:47)
[2018-09-14] MEDS ORDERED: ADDE30TA PO (12:47)
[2018-09-14] MEDS ORDERED: ONDA8TAB8 PO (12:47)
[2018-09-14] MEDS ORDERED: ACET-897 PO (12:47)
[2018-09-14] MEDS ORDERED: ONDANSETRON 4 MG ORAL DISINTEGRATING TAB (Q0162 PER 1MG) PO PRN (13:15)
[2018-09-14] MEDS ORDERED: DICYCLOMINE INJ 20MG/2ML (J0500) IM PRN (13:15)
[2018-09-14] MEDS ORDERED: FENTANYL REMOVAL DOCUMENTATION MISC XX SCH (13:15)
[2018-09-14] MEDS ORDERED: ACETAMINOPHEN 500 MG TAB PO PRN (13:15)
--- NOTE | 2018-09-14 13:32 | HPEPDOC ---
[facility] Medical History & Physical Date of Admission September 14, 2018 History and Physical CHIEF COMPLAINT: Hypoxia/SOB HISTORY OF PRESENT ILLNESS: Patient is a 53-year-old female with history of bilateral breast cancer follows with Dr. Whitlock, Crohn's disease, ADD, Grave's disease s/p radioactive iodine treatment was sent in from oncology's office for pneumonia. Patient has had L. breast cancer 2013 s/p chemo then diagnosed with R. breast cancer 2018 and had completed chemotherapy with subsequent plan for starting RT in the coming week/s. She was sent from Oncology's office today for reported complaints of SOB, Cough, and hypoxia down to 78%. CXR was done outpatient showing b/l pneumonia. Patient reported feeling sick for almost a week with intermittent fevers at home up to 102F with dry cough and pleuritic chest pain with cough and SOB. She also states that she has had a flare of her Crohn's 3 weeks prior with diarrhea/n/V/abdominal pain that had mostly improved by now. She reports no other complaints at this time. PAST MEDICAL HISTORY: As per [facility] PAST SURGICAL HISTORY: Appendectomy Cholecystectomy Tonsillectomy Left knee arthroplasty Tubal ligation Breast biopsy 2 SOCIAL HISTORY: Denies tobacco, alcohol or drug use. FAMILY HISTORY: Father had HTN and aplastic anemia- Mother had Pancreatic ca- ALLERGIES: Please see below. REVIEW OF SYSTEMS: 10 point review of system negative except as stated in HPI HOME MEDICATIONS: Please see below. PHYSICAL EXAMINATION: General: No acute distress, Alert Eyes: Normal sclera, EOMI, ERIKA HENT: Atraumatic, neck supple, moist mucous membranes Cardiovascular: Tachycardic, normal rhythm. No murmurs appreciated. Pulmonary: Clear to auscultation b/l, no wheezing GI: Soft, nontender, nondistended Skin: Warm and dry Neuro: CN grossly intact. No focal deficits. Strengths equal b/l. Psych: oriented x 3 LABORATORY DATA: See below. IMAGING: CXR outpatient- reported b/l infiltrates. MICROBIOLOGY: Please see below. ASSESSMENT AND PLAN: 1. Sepsis 2/2 Pneumonia - Leukocytosis, tachycardia and LA 2.8 on presentation consistent with sepsis. - 30cc/kg IVF bolus to be given along with Levaquin for PNA. - f/u Blood cultures x2. - BP stable at this time. Does not look clinically septic. - Repeat CXR in AM. 2. Crohn's disease - resume home meds. - Had a flare since 3 weeks prior to presentation but reportedly had improved a lot since then. 3. Gave's disease s/p RI treatment - c/w home medications. 4. ADD - c/w Adderall home med. DVT ppx: HSQ Code status: Full code Vital Signs Vital Signs Date Time Temp Pulse Resp B/P (MAP) Pulse Ox O2 Delivery O2 Flow Rate FiO2 09/14/18 11:08 Nasal Cannula 2.0 09/14/18 11:08 09/14/18 10:27 96.5 102 20 94 Laboratory Data Labs 24H Laboratory Tests 2 09/14/18 10:57: Immature Granulocyte % (Auto) 0.4, White Blood Count 18.5H, Red Blood Count 3.58L, Hemoglobin 10.5L, Hematocrit 31.9L, Mean Corpuscular Volume 89.1, Mean Co rpuscular Hemoglobin 29.3, Mean Corpuscular Hemoglobin Concent 32.9, Red Cell Distribution Width 15.3H, Platelet Count 258, Neutrophils (%) (Auto) 77.3H, Lymphocytes (%) (Auto) 17.5L, Monocytes (%) (Auto) 4.3, Eosinophils (%) (Auto) 0.2, Basophils (%) (Auto) 0.3, Neutrophils # (Auto) 14.3H, Lymphocytes # (Auto) 3.2, Monocytes # (Auto) 0.8, Eosinophils # (Auto) 0.0, Basophils # (Auto) 0.1, Nucleated Red Blood Cells % (auto) 0.0, Prothrombin Time 14.7H, Prothromb Time International Ratio 1.13, Blood Gas Bicarbonate Standard 24.2, Venous Blood pH 7.395, Venous Blood Partial Pressure CO2 41.7, Venous Blood Partial Pressure O2 47.4, Venous Blood Total Carbon Dioxide 26.2, Venous Blood HCO3 25.0, Venous Blood Oxygen Saturation 82.5H, Venous Blood Base Excess 0.0, Anion Gap 8, Glomerular Filtration Rate > 60.0, Lactic Acid Level 2.8*H, Calcium Level 8.1L, Aspartate Amino Transf (AST/SGOT) 17, Alanine Aminotransferase (ALT/SGPT) 17, Alkaline Phosphatase 91, Total Bilirubin 0.4, Direct Bilirubin < 0.1, Total Creatine Kinase 48, Creatine Kinase MB < 1.0, Creatine Kinase MB Relative Index 2.08, Troponin I < 0.02, KH-Hcy-F-Type Natriuretic Peptide 395H, Total Protein 6.1L, Albumin 2.8L, Albumin/Globulin Ratio 0.85L, Thyroid Stimulating Hormone (TSH) 1.190 CBC/BMP Laboratory Tests 09/14/18 10:57 Red Blood Count 3.58 L, Mean Corpuscular Volume 89.1, Mean Corpuscular Hem oglobin 29.3, Mean Corpuscular Hemoglobin Concent 32.9, Red Cell Distribution Width 15.3 H, Neutrophils (%) (Auto) 77.3 H, Lymphocytes (%) (Auto) 17.5 L, Monocytes (%) (Auto) 4.3, Eosinophils (%) (Auto) 0.2, Basophils (%) (Auto) 0.3, Neutrophils # (Auto) 14.3 H, Lymphocytes # (Auto) 3.2, Monocytes # (Auto) 0.8, Eosinophils # (Auto) 0.0, Basophils # (Auto) 0.1 Microbiology Microbiology 09/14/18 Blood Culture, Received Pending 09/14/18 Blood Culture, Received Pending 09/14/18 Respiratory Virus Panel (PCR) (JERMAINE) - Final, Complete Home Medications Scheduled Atorvastatin Calcium (Atorvastatin Calcium) 40 Mg Tab, 40 MG PO QHS Cyanocobalamin (Cyanocobalamin Injection) 1,000 Mcg/1 Ml Inj, 1,000 MCG IM 1XWK THURSDAYS Dextroamphetamine/Amphetamine (Adderall 30 mg Tablet) 30 Mg Tablet, 30 MG PO DAILY Duloxetine Hcl (Duloxetine HCl) 60 Mg Cap, 60 MG PO DAILY Fentanyl (Duragesic) 75 Mcg/Hr Dis, 75 MCG TOP Q3D LAST PATCH WAS APPLIED 09/13/18 AM, WAS REMOVED ON 09/14/18 BY ED STAFF Furosemide (Furosemide) 20 Mg Tab, 20 MG PO DAILY Levothyroxine Sodium (Synthroid) 300 Mcg Tab, 300 MCG PO DAILY Scheduled PRN Acetaminophen (Tylenol Extra Strength) 500 Mg Tablet, 1,000 MG PO QID PRN for PAIN Dicyclomine HCl (Dicyclomine HCl) 20 Mg Tablet, 20 MG PO Q6H PRN for ABDOMINAL PAIN Ondansetron (Ondansetron Odt) 8 Mg Tab.rapdis, 8 MG PO Q6H PRN for NAUSEA OR VOMITING Oxycodone Hcl (Oxycodone HCl) 15 Mg Tab, 15 MG PO Q4H PRN for PAIN Allergies Coded Allergies: Penicillins (Verified Allergy, Intermediate, hives, 07/26/18) Wheat (Verified Allergy, Intermediate, CELIACS DISEASE, 04/28/17) budesonide (Verified Allergy, Intermediate, eye swelling, 07/26/18) cephalexin (Verified Allergy, Intermediate, hives/swelling, 07/27/18) (from [id number]) ciprofloxacin (Verified Allergy, Intermediate, hives/swelling, 09/14/18) TAKES LEVAQUIN WITH NO ISSUES Gluten Flour (Verified Adverse Reaction, Intermediate, celiacs disease, 07/27/18) ketorolac (Verified Adverse Reaction, Intermediate, severe headache, 07/27/18) A-FIB/CHADSVASC A-FIB History Current/History of A-Fib/PAF?: No KIM SUÁREZ MD September 14, 2018 13:32
[2018-09-14] MEDS: oxyCODONE 5MG TAB PO PRN ×2 (14:13→20:32)
[2018-09-14] MEDS ORDERED: POTASSIUM CHLORIDE 10 MEQ SR TABLET PO ONE (15:00)
[2018-09-14] MEDS ORDERED: KCL 10MEQ/100ML SWI (KRUN) 10 MEQ in APPROPRIATE DILUENT 1 EA IV SCH (15:00)
[2018-09-14 16:00] VITALS: BP 109/60
[2018-09-14] MEDS: FUROSEMIDE 20 MG TAB PO SCH (16:41)
[2018-09-14] MEDS: DULoxetine 30 MG CAP (CYMBALTA) PO SCH (16:41)
[2018-09-14] MEDS: KCL 10MEQ/100ML SWI (KRUN) 10 MEQ in APPROPRIATE DILUENT 1 EA IV SCH ×4 (16:42→20:26)
[2018-09-14] MEDS: ENOXAPARIN 40 MG/0.4 ML SYRINGE (J1650) SC SCH (16:42)
[2018-09-14] MEDS: fentaNYL 75 MCG/HR PATCH TOP SCH (17:53)
[2018-09-14 20:00] VITALS: BP 102/60
[2018-09-14] MEDS: ATORVASTATIN 20 MG TAB PO SCH (20:32)
[2018-09-14] MEDS: SODIUM CHLORIDE 0.9% INJ 10 ML SYR IV PRN (22:07)
[2018-09-14 23:59] VITALS: BP 119/68
[2018-09-15 04:00] VITALS: BP 105/68
[2018-09-15 06:04] LABS: HEMATOCRIT 29.1 % (36.0-47.0); HEMOGLOBIN 9.2 g/dl (12.0-15.5); MEAN CORPUSCULAR HEMOGLOBIN 28.7 pg (27.0-33.0); MEAN CORPUSCULAR HGB CONC 31.6 g/dl (32.0-36.5); MEAN CORPUSCULAR VOLUME 90.7 fl (80.0-96.0); PLATELET COUNT, AUTOMATED 228 10^3/uL (150-450); RED BLOOD COUNT 3.21 10^6/uL (4.00-5.40); WHITE BLOOD COUNT 8.8 10^3/uL (4.0-10.0)
[2018-09-15] MEDS: LEVOTHYROXINE 150MCG TABLET (0.15MG) PO SCH (06:14)
[2018-09-15 06:33] LABS: BLOOD UREA NITROGEN 11 MG/DL (7-18); CARBON DIOXIDE LEVEL 28 MEQ/L (21-32); CHLORIDE LEVEL 109 MEQ/L (98-107); CREATININE FOR GFR 0.62 MG/DL (0.55-1.30); GLOMERULAR FILTRATION RATE > 60.0 (>51); GLUCOSE, FASTING 105 MG/DL (70-100); POTASSIUM SERUM 3.4 MEQ/L (3.5-5.1); SODIUM LEVEL 144 MEQ/L (136-145)
[2018-09-15] MEDS ORDERED: POTASSIUM CHLORIDE 10 MEQ SR TABLET PO ONE (07:45)
[2018-09-15 08:00] VITALS: BP 114/69
[2018-09-15] MEDS: FUROSEMIDE 20 MG TAB PO SCH (08:12)
[2018-09-15] MEDS: DULoxetine 30 MG CAP (CYMBALTA) PO SCH (08:13)
[2018-09-15] MEDS: ENOXAPARIN 40 MG/0.4 ML SYRINGE (J1650) SC SCH (08:13)
[2018-09-15] MEDS: SODIUM CHLORIDE 0.9% INJ 10 ML SYR IV SCH (08:14)
[2018-09-15] MEDS: ADDERALL 5 MG TAB PO SCH (08:16)
[2018-09-15] MEDS: oxyCODONE 5MG TAB PO PRN ×3 (08:17→20:11)
--- NOTE | 2018-09-15 09:22 | REP ---
HISTORY: Pneumonia and hypoxia. COMPARISON: Multiple, the latest 09/14/2018. The technique utilized in obtaining the radiograph has magnified the cardiac silhouette and accentuated the interstitial markings. The cardiomediastinal silhouette and the imaged osseous structures are unchanged. The tip of the central venous catheter remains in the superior vena cava. IMPRESSION: No significant change from the prior exam, other than technique. Electronically Signed by Nawaf Stroud DO 09/15/2018 10:32 A
[2018-09-15] MEDS ORDERED: SLF 3 ML SYR IV PRN (09:30)
--- NOTE | 2018-09-15 09:59 | IPNPDOC ---
Date Seen The patient was seen on 09/15/18. Progress Note SUBJECTIVE: Patient reports feeling that her today. States that she has some right sided abdominal pain intermittently from kidney stones but has been chronic. Denies any fever or urinary symptoms including dysuria or frequency. Urine noted to be concentrated and [place] but no evidence of hematuria grossly. OBJECTIVE PHYSICAL EXAMINATION: VITAL SIGNS: Please see below. General: No acute distress, Alert Eyes: Normal sclera, EOMI, ERIKA HENT: Atraumatic, neck supple, moist mucous membranes Cardiovascular: Normal rate, normal rhythm. No murmurs appreciated. Pulmonary: Clear to auscultation b/l, no wheezing GI: Soft, nondistended. R. sided abdominal tenderness. Skin: Warm and dry Neuro: CN grossly intact. No focal deficits. Strengths equal b/l. Psych: oriented x 3 LABORATORY DATA, IMAGING STUDIES, MICROBIOLOGY: Please see below. DVT prophylaxis ordered?: HSQ ASSESSMENT AND PLAN: 1. Sepsis 2/2 Pneumonia - Leukocytosis, tachycardia and LA 2.8 on presentation consistent with sepsis. - 30cc/kg IVF bolus to be given along with Levaquin for PNA. - f/u Blood cultures x2. - BP stable. Does not look clinically septic. - Repeat CXR unchanged from prior. 2. Crohn's disease - resume home meds. - Had a flare since 3 weeks prior to presentation but reportedly had improved a lot since then. 3. Gave's disease s/p RI treatment - c/w home medications. 4. ADD - c/w Adderall home med. 5. Abdominal discomfort - Reportedly chronic. CT abdomen in 07/2018 last month noted with sub cm mesenteric root lymph node but no other remarkable findings. - Consider repeating CT abdomen if pain worsens as patient reports unchanged chronic discomfort from baseline at this time. - No urinary symptoms suggestive of UTI although low threshold to assess for UTI/Pyelo. DVT ppx: HSQ Code status: Full code A-FIB/CHADSVASC A-FIB History Current/History of A-Fib/PAF?: No VS, I&O, 24H, Fishbone Vital Signs/I&O Vital Signs Date Time Temp Pulse Resp B/P (MAP) Pulse Ox O2 Delivery O2 Flow Rate FiO2 09/15/18 08:17 20 09/15/18 08:00 97.8 83 114/69 (84) 92 09/14/18 21:02 2.0 09/14/18 15:45 Nasal Cannula I&O- Last 24 Hours up to 6 AM0 09/15/18 06:00 Intake Total 710 ml Output Total 600 ml Balance 110 ml Laboratory Data 24H LABS Laboratory Tests 2 09/14/18 10:57: Immature Granulocyte % (Auto) 0.4, White Blood Count 18.5H, Red Blood Count 3.58L, Hemoglobin 10.5L, Hematocrit 31.9L, Mean Corpuscular Volume 89.1, Mean Corpuscular Hemoglobin 29.3, Mean Corpuscular Hemoglobin Concent 32.9, Red Cell Distribution Width 15.3H, Platelet Count 258, Neutrophils (%) (Auto) 77.3H, Lymphocytes (%) (Auto) 17.5L, Monocytes (%) (Auto) 4.3, Eosinophils (%) (Auto) 0.2, Basophils (%) (Auto) 0.3, Neutrophils # (Auto) 14.3H, Lymphocytes # (Auto) 3.2, Monocytes # (Auto) 0.8, Eosinophils # (Auto) 0.0, Basophils # (Auto) 0.1, Nucleated Red Blood Cells % (auto) 0.0, Prothrombin Time 14.7H, Prothromb Time International Ratio 1.13, Blood Gas Bicarbonate Standard 24.2, Venous Blood pH 7.395, Venous Blood Partial Pressure CO2 41.7, Venous Blood Partial Pressure O2 47.4, Venous Blood Total Carbon Dioxide 26.2, Venous Blood HCO3 25.0, Venous Blood Oxygen Saturation 82.5H, Venous Blood Base Excess 0.0, Anion Gap 8, Glomerular Filtration Rate > 60.0, Lactic Acid Level 2.8*H, Calcium Level 8.1L, Aspartate Amino Transf (AST/SGOT) 17, Alanine Aminotransferase (ALT/SGPT) 17, Alkaline Phosphatase 91, Total Bilirubin 0.4, Direct Bilirubin < 0.1, Total Creatine Kinase 48, Creatine Kinase MB < 1.0, Creatine Kinase MB Relative Index 2.08, Troponin I < 0.02, UB-Mov-Q-Type Natriuretic Peptide 395H, Total Protein 6.1L, Albumin 2.8L, Albumin/Globulin Ratio 0.85L, Thyroid Stimulating Hormone (TSH) 1.190 09/14/18 15:27: Lactic Acid Followup at 4 Hours 2.4*H 09/14/18 19:29: Lactic Acid Level 1.7 09/15/18 05:26: Nucleated Red Blood Cells % (auto) 0.0, Anion Gap 7L, Glomerular Filtration Rate > 60.0, Calcium Level 8.0L, Blood Urea Nitrogen 11, Creatinine 0.62, Sodium Level 144, Potassium Level 3.4#L, Chloride Level 109H, Carbon Dioxide Level 28 CBC/BMP Laboratory Tests 09/14/18 10:57 Red Blood Count 3.58 L, Mean Corpuscular Volume 89.1, Mean Corpuscular Hemoglobin 29.3, Mean Corpuscular Hemoglobin Concent 32.9, Red Cell Distribution Width 15.3 H, Neutrophils (%) (Auto) 77.3 H, Lymphocytes (%) (Auto) 17.5 L, Monocytes (%) (Auto) 4.3, Eosinophils (%) (Auto) 0.2, Basophils (%) (Auto) 0.3, Neutrophils # (Auto) 14.3 H, Lymphocytes # (Auto) 3.2, Monocytes # (Auto) 0.8, Eosinophils # (Auto) 0.0, Basophils # (Auto) 0.1 09/15/18 05:26 Red Blood Count 3.21 L, Mean Corpuscular Volume 90.7, Mean Corpuscular Hemoglobin 28.7, Mean Corpuscular Hemoglobin Concent 31.6 L, Red Cell Distribution Width 15.6 H, Calcium Level 8.0 L Microbiology Microbiology 09/14/18 Blood Culture, Received Pending 09/14/18 Blood Culture, Received Pending 09/14/18 Respiratory Virus Panel (PCR) (JERMAINE) - Final, Complete KIM SUÁREZ MD September 15, 2018 09:59
[2018-09-15] MEDS: LevoFLOXacin IV 750 MG in APPROPRIATE DILUENT 1 EA IV SCH (11:24)
[2018-09-15 12:00] VITALS: BP 108/63
[2018-09-15] MEDS: SODIUM CHLORIDE 0.9% INJ 10 ML SYR IV PRN (13:58)
[2018-09-15] MEDS: SLF 3 ML SYR IV SCH ×2 (13:59→20:49)
[2018-09-15 16:00] VITALS: BP 131/94
--- NOTE | 2018-09-15 17:36 | ECGEPIP ---
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
[2018-09-15 20:00] VITALS: BP 112/68
[2018-09-15] MEDS: ATORVASTATIN 20 MG TAB PO SCH (20:10)
[2018-09-15 23:59] VITALS: BP 108/66
[2018-09-16 04:00] VITALS: BP 95/60
[2018-09-16] MEDS: SLF 3 ML SYR IV SCH ×3 (04:32→20:51)
[2018-09-16] MEDS: oxyCODONE 5MG TAB PO PRN ×2 (04:35→20:51)
[2018-09-16] MEDS: LEVOTHYROXINE 150MCG TABLET (0.15MG) PO SCH (05:05)
[2018-09-16 05:15] LABS: HEMATOCRIT 30.3 % (36.0-47.0); HEMOGLOBIN 9.6 g/dl (12.0-15.5); MEAN CORPUSCULAR HEMOGLOBIN 29.4 pg (27.0-33.0); MEAN CORPUSCULAR HGB CONC 31.7 g/dl (32.0-36.5); MEAN CORPUSCULAR VOLUME 92.7 fl (80.0-96.0); PLATELET COUNT, AUTOMATED 222 10^3/uL (150-450); RED BLOOD COUNT 3.27 10^6/uL (4.00-5.40); WHITE BLOOD COUNT 8.9 10^3/uL (4.0-10.0)
[2018-09-16 05:35] LABS: BLOOD UREA NITROGEN 9 MG/DL (7-18); CARBON DIOXIDE LEVEL 31 MEQ/L (21-32); CHLORIDE LEVEL 107 MEQ/L (98-107); CREATININE FOR GFR 0.72 MG/DL (0.55-1.30); GLOMERULAR FILTRATION RATE > 60.0 (>51); GLUCOSE, FASTING 94 MG/DL (70-100); POTASSIUM SERUM 3.5 MEQ/L (3.5-5.1); SODIUM LEVEL 142 MEQ/L (136-145)
[2018-09-16 08:00] VITALS: BP 103/60
[2018-09-16] MEDS: DULoxetine 30 MG CAP (CYMBALTA) PO SCH (08:43)
[2018-09-16] MEDS: ADDERALL 5 MG TAB PO SCH (08:43)
[2018-09-16] MEDS: FUROSEMIDE 20 MG TAB PO SCH (08:43)
[2018-09-16] MEDS: ENOXAPARIN 40 MG/0.4 ML SYRINGE (J1650) SC SCH (08:44)
[2018-09-16] MEDS: SODIUM CHLORIDE 0.9% INJ 10 ML SYR IV SCH (08:44)
--- NOTE | 2018-09-16 10:40 | IPNPDOC ---
Date Seen The patient was seen on 09/16/18. Progress Note SUBJECTIVE: Patient complains of abdominal cramping and diarrhea, attributing it to her Crohn's flare that started 3 weeks prior. Stated that it overall had improved a lot on admission but now seems to have worsen. Patient is placed on contact precaution while pending C. diff study given her previous history of c. diff. Repeat CT abdomen ordered. OBJECTIVE PHYSICAL EXAMINATION: VITAL SIGNS: Please see below. General: No acute distress, Alert Eyes: Normal sclera, EOMI, ERIKA HENT: Atraumatic, neck supple, moist mucous membranes Cardiovascular: Normal rate, normal rhythm. No murmurs appreciated. Pulmonary: Clear to auscultation b/l, no wheezing GI: Soft, nondistended. Mild abdominal tenderness throughout. Skin: Warm and dry Neuro: CN grossly intact. No focal deficits. Strengths equal b/l. Psych: oriented x 3 LABORATORY DATA, IMAGING STUDIES, MICROBIOLOGY: Please see below. DVT prophylaxis ordered?: HSQ ASSESSMENT AND PLAN: 1. Sepsis 2/2 Pneumonia - Leukocytosis, tachycardia and LA 2.8 on presentation consistent with sepsis. - 30cc/kg IVF bolus to be given along with Levaquin for PNA. - f/u Blood cultures x2. - BP stable. Does not look clinically septic. - Repeat CXR unchanged from prior. 2. Crohn's disease/Abdominal discomfort - resume home meds. - Had a flare since 3 weeks prior to presentation, reportedly improved but still has significant diarrhea and abdominal cramping, worse today than on presentation. - Previously seen Dr. Montero and gets Entyvio but reportedly had lost followed up, has been taking Bentyl at home for Crohn symptoms. - CT abdomen in 07/2018 last month noted with sub cm mesenteric root lymph node but no other remarkable findings. - Repeat CT abdomen. f/u C. diff and GI panel. - GI consulted. 3. Gave's disease s/p RI treatment - c/w home medications. 4. ADD - c/w Adderall home med. DVT ppx: HSQ Code status: Full code A-FIB/CHADSVASC A-FIB History Current/History of A-Fib/PAF?: No VS, I&O, 24H, Fishbone Vital Signs/I&O Vital Signs Date Time Temp Pulse Resp B/P (MAP) Pulse Ox O2 Delivery O2 Flow Rate FiO2 5/19/19 08:00 99.1 98 18 103/60 (74) 96 2.0 09/14/18 15:45 Nasal Cannula I&O- Last 24 Hours up to 6 AM 09/16/18 06:00 Intake Total 2270 ml Output Total 2275 ml Balance -5 ml Laboratory Data 24H LABS Laboratory Tests 2 09/16/18 05:02: Nucleated Red Blood Cells % (auto) 0.0, Anion Gap 4L, Glomerular Filtration Rate > 60.0, Blood Urea Nitrogen 9, Creatinine 0.72, Sodium Level 142, Potassium Level 3.5, Chloride Level 107, Carbon Dioxide Level 31, Calcium Level 8.0L CBC/BMP Laboratory Tests 09/16/18 05:02 Red Blood Count 3.27 L, Mean Corpuscular Volume 92.7, Mean Corpuscular Hemoglobin 29.4, Mean Corpuscular Hemoglobin Concent 31.7 L, Red Cell Distribution Width 15.4 H, Calcium Level 8.0 L Microbiology Microbiology 09/14/18 Blood Culture - Preliminary, Resulted No growth after 24 hours . All specim... 09/14/18 Blood Culture - Preliminary, Resulted No growth after 24 hours . All specim... 09/14/18 Respiratory Virus Panel (PCR) (JERMAINE) - Final, Complete KIM SUÁREZ MD September 16, 2018 10:40
[2018-09-16] MEDS ORDERED: FUROSEMIDE 20 MG/2 ML VIAL (J1940) IV ONE (11:00)
[2018-09-16] MEDS: LevoFLOXacin IV 750 MG in APPROPRIATE DILUENT 1 EA IV SCH (12:06)
--- NOTE | 2018-09-16 12:40 | REP ---
HISTORY: Abdominal pain. History of Crohn disease and C. Difficile. COMPARISON: Contrast enhanced examination of 08/12/2018 with other priors reviewed as well. The lack of intravenous contrast today and the lack of oral bowel preparatory contrast decreases the sensitivity of the exam. Patchy ground glass opacities are seen throughout the lung bases representing a change from the prior exam likely subsegmental atelectatic changes. There are no pleural or pericardial effusions. Limited evaluation of the solid intraabdominal organs show no gross abnormalities. Limited evaluation of the pancreas, adrenal glands, and left kidney show no gross abnormalities. There are multiple nonobstructing right nephroliths. There is no hydronephrosis or hydroureter. There are no ureteroliths. The latest prior, noncontrast enhanced CT of 01/05/2016 showed bilateral renal calculi. Limited evaluation of the abdominal aorta and periaortic regions show no gross abnormalities. Limited evaluation of the bowel loops show multiple mildly dilated fluid and gas filled small bowel loops throughout the abdomen. Borderline and mildly enlarged mesenteric lymph nodes are present, but these appear stable compared to multiple prior exams. There is mild fatty infiltration of the central small bowel mesentery likely due to chronic change from fibrosis. This was present on multiple priors. There is no free fluid or free air in the abdomen. CT PELVIS: Small bowel loops in the pelvis have the same appearance of those in the abdomen. There is a trace amount of free pelvic fluid likely physiologic. There is no mass or adenopathy. Bone window technique throughout the exam shows no significant change in the appearance of the osseous structures. IMPRESSION: 1. Ileus with or without enteritis. Correlate clinically. The exam is limited as described above. 2. Chronic changes involving the mesentery with adenopathy as described above and with a stable appearance. 3. Likely lung bases subsegmental atelectatic changes. 4. Nonobstructing nephroliths on the right. 5. Other findings as described above. Electronically Signed by Nawaf Stroud DO 09/16/2018 12:43 P
[2018-09-16] MEDS: SODIUM CHLORIDE 0.9% INJ 10 ML SYR IV PRN (14:02)
--- NOTE | 2018-09-16 14:12 | CR ---
DATE OF CONSULTATION: 09/16/2018 STATUS: Inpatient. REQUESTING PHYSICIAN: Hospitalist service, REASON FOR CONSULTATION: Diarrhea, Crohn disease. HISTORY OF PRESENT ILLNESS: This is a 53-year-old female with a past medical history significant for microscopic colitis (resolved), history of reported celiac disease on a fairly strict gluten free diet, reportedly a history of Crohn disease of which I cannot find any empiric evidence in our [facility] EMR. The patient presents to the hospital with 2-3 week increase in diarrhea, loose stools and crampy abdominal pain. She has recently been placed on antibiotics for pneumonia. She also has a past medical history significant for breast cancer. She has a history of Clostridium (C) difficile colitis and a history of a fecal impaction and chronic constipation. SOCIAL HISTORY: Negative for tobacco and negative for alcohol. ALLERGIES are to BUDESONIDE, CEPHALEXIN, CIPRO, GLUTEN WHEAT, PENICILLIN, and KETOROLAC. FAMILY HISTORY: Negative for colorectal carcinoma, inflammatory bowel disease. SURGICAL HISTORY: Several colonoscopies and esophagogastroduodenoscopies (EGDs) here and in [place] over the years, right breast surgery and left breast surgery. PHYSICAL EXAMINATION: Temperature 99.1, pulse is 98, respiratory rate 18, blood pressure 103/60, pulse oximetry 96% on room air. General: She is awake, alert and oriented times three, in no acute distress. She is not toxic in appearance. Head, eyes, ears, nose and throat is grossly without abnormality. There is no iritis, uveitis. Neck is supple. No lymphadenopathy or thyromegaly. Chest is clear bilaterally. Heart is regular rate and rhythm, S1, S2. No murmurs or gallops. Abdomen is soft. Positive bowel sounds. Mildly tender throughout to palpation. No masses are appreciated. Extremities are negative for edema. Rectal examination has been deferred as per patient's request. Lab work and CAT scan have been reviewed. IMPRESSION: 1. Diarrhea-Worse over past 2-3 weeks. 2. Celiac disease - unconfirmed 3. Crohn disease - unconfirmed 4. Microscopic colitis - resolved on last colonoscopy 2017 5. History of constipation and fecal impaction. 5. History of Clostridium difficile colitis. DISCUSSION: The patient tells me that she was at some point in the past diagnosed with Crohn disease as per Dr. Montero. She has been started on Entyvio and has had six doses. She feels that this has helped. She was discharged from the gastrointestinal (GI) service due to noncompliance and has found that she had her symptoms have worsened. It is interesting that despite the numerous CAT scans and several colonoscopies that I am reviewing in her [facility] chart for the past 10 years I do not see definite evidence of Crohn disease. Her small bowel follow through was a nondiagnostic study but also probably ruled out Crohn disease. In addition, her Crohn's ASCA blood markers are negative. At this time, I will have to review the patient's chart with her previous GI to determine how this diagnosis was made. Certainly at this time i have no empiric evidence for such. I do see that she has a positive celiac marker at 7 back in 2013 and the small bowel appearance on her various CAT scans may be linked to celiac disease rather than Crohn disease. She apparently also has a history of microscopic colitis remotely that was diagnosed in [place] at some point prior to 10 years. However, recent colonoscopy examination within the past 2 years did not show any microscopic colitis features on biopsy. Overall at this time, I am not quite certain about her various GI history and will have to determine whether or not she actually does or does not have Crohn disease. 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 RECOMMENDATIONS: 1. Gluten-free diet as her celiac markers are positive in 2013 and I do believe that she does have celiac disease. 2. Check stool for C diff and other pathogens. (GI panel) 3. Further recommendations, including probable EGD with biopsy and colonoscopy on this admission, however this will be delayed until I can get more information and stool testing is back. [facility]
[2018-09-16 20:00] VITALS: BP 118/75
[2018-09-16] MEDS: ATORVASTATIN 20 MG TAB PO SCH (20:51)
[2018-09-16 23:59] VITALS: BP 119/64
[2018-09-17] MEDS: oxyCODONE 5MG TAB PO PRN ×4 (03:05→23:25)
[2018-09-17 04:00] VITALS: BP 116/66
[2018-09-17] MEDS: SLF 3 ML SYR IV SCH ×3 (04:30→22:03)
[2018-09-17] MEDS: LEVOTHYROXINE 150MCG TABLET (0.15MG) PO SCH (05:38)
[2018-09-17] MEDS: SODIUM CHLORIDE 0.9% INJ 10 ML SYR IV SCH (05:39)
[2018-09-17 05:55] LABS: HEMATOCRIT 30.5 % (36.0-47.0); HEMOGLOBIN 9.7 g/dl (12.0-15.5); MEAN CORPUSCULAR HEMOGLOBIN 28.4 pg (27.0-33.0); MEAN CORPUSCULAR HGB CONC 31.8 g/dl (32.0-36.5); MEAN CORPUSCULAR VOLUME 89.2 fl (80.0-96.0); PLATELET COUNT, AUTOMATED 250 10^3/uL (150-450); RED BLOOD COUNT 3.42 10^6/uL (4.00-5.40); WHITE BLOOD COUNT 8.1 10^3/uL (4.0-10.0)
[2018-09-17 06:20] LABS: BLOOD UREA NITROGEN 9 MG/DL (7-18); CALCIUM LEVEL 8.6 MG/DL (8.5-10.1); CARBON DIOXIDE LEVEL 29 MEQ/L (21-32); CHLORIDE LEVEL 106 MEQ/L (98-107); CREATININE FOR GFR 0.79 MG/DL (0.55-1.30); GLOMERULAR FILTRATION RATE > 60.0 (>51); GLUCOSE, FASTING 97 MG/DL (70-100); POTASSIUM SERUM 3.4 MEQ/L (3.5-5.1); SODIUM LEVEL 141 MEQ/L (136-145)
[2018-09-17 08:00] VITALS: BP 111/69
[2018-09-17] MEDS: FUROSEMIDE 20 MG TAB PO SCH (08:42)
[2018-09-17] MEDS: DULoxetine 30 MG CAP (CYMBALTA) PO SCH (08:42)
[2018-09-17] MEDS: ADDERALL 5 MG TAB PO SCH (08:43)
[2018-09-17] MEDS: ENOXAPARIN 40 MG/0.4 ML SYRINGE (J1650) SC SCH (08:44)
[2018-09-17] MEDS ORDERED: POTASSIUM CHLORIDE 10 MEQ SR TABLET PO ONE (09:00)
[2018-09-17] MEDS: LevoFLOXacin IV 750 MG in APPROPRIATE DILUENT 1 EA IV SCH (11:54)
[2018-09-17 12:00] VITALS: BP 119/77
[2018-09-17 16:00] VITALS: BP 105/70
--- NOTE | 2018-09-17 17:36 | IPNPDOC ---
Date Seen The patient was seen on 09/17/18. Progress Note SUBJECTIVE: Patient still has diarrhea but think that she might be slightly improving. GI panel + for Salmonella. Still complains of abdominal discomfort but denies any other complaints including SOB. OBJECTIVE PHYSICAL EXAMINATION: VITAL SIGNS: Please see below. General: No acute distress, Alert Eyes: Normal sclera, EOMI, ERIKA HENT: Atraumatic, neck supple, moist mucous membranes Cardiovascular: Normal rate, normal rhythm. No murmurs appreciated. Pulmonary: Clear to auscultation b/l, no wheezing GI: Soft, nondistended. Mild abdominal tenderness throughout. Skin: Warm and dry Neuro: CN grossly intact. No focal deficits. Strengths equal b/l. Psych: oriented x 3 LABORATORY DATA, IMAGING STUDIES, MICROBIOLOGY: Please see below. DVT prophylaxis ordered?: HSQ ASSESSMENT AND PLAN: 1. Sepsis 2/2 Pneumonia - Leukocytosis, tachycardia and LA 2.8 on presentation consistent with sepsis. - 30cc/kg IVF bolus to be given along with Levaquin for PNA. - Blood cultures x2 NTD. respiratory panel negative. - BP stable. Does not look clinically septic. - Repeat CXR unchanged from prior. 2. ?Crohn's disease/Abdominal discomfort - resume home meds. - Had a flare since 3 weeks prior to presentation, reportedly improved but still has significant diarrhea and abdominal cramping. - Previously seen Dr. Montero and gets Entyvio but reportedly had lost followed up, has been taking Bentyl at home for Crohn symptoms. - CT abdomen in 07/2018 last month noted with sub cm mesenteric root lymph node but no other remarkable findings. - Repeat CT abdomen with SB inflammation. - GI following, no clear evidence of Crohn's found in GI records at this time. Noted for Celiac disease however. - GI panel + For Salmonella. Patient already on Levaquin for PNA, should also help with Salmonella as well. 3. Grave's disease s/p RI treatment - c/w home medications. 4. ADD - c/w Adderall home med. DVT ppx: HSQ Code status: Full code [id number]/CHADSVASC A-FIB History Current/History of A-Fib/PAF?: No VS, I&O, 24H, Fishbone Vital Signs/I&O Vital Signs Date Time Temp Pulse Resp B/P (MAP) Pulse Ox O2 Delivery O2 Flow Rate FiO2 5/20/19 16:00 97.3 103 18 105/70 (82) 92 09/16/18 08:00 2.0 09/14/18 15:45 Nasal Cannula I&O- Last 24 Hours up to 6 AM 09/17/18 06:00 Intake Total 2370 ml Output Total 3000 ml Balance -630 ml Laboratory Data 24H LABS Laboratory Tests 2 09/17/18 02:50: Clostridium difficile [id number] , Clostridium difficile Toxin (PCR) 09/17/18 05:38: Nucleated Red Blood Cells % (auto) 0.0, Anion Gap 6L, Glomerular Filtration Rate > 60.0, Blood Urea Nitrogen 9, Creatinine 0.79, Sodium Level 141, Potassium Level 3.4L, Chloride Level 106, Carbon Dioxide Level 29, Calcium Level 8.6 CBC/BMP Laboratory Tests 09/17/18 05:38 Red Blood Count 3.42 L, Mean Corpuscular Volume 89.2, Mean Corpuscular Hemo globin 28.4, Mean Corpuscular Hemoglobin Concent 31.8 L, Red Cell Distribution Width 15.4 H, Calcium Level 8.6 Microbiology Microbiology 09/14/18 Blood Culture - Preliminary, Resulted No Growth after 72 hours. All specime... 09/14/18 Blood Culture - Preliminary, Resulted No Growth after 72 hours. All specime... 09/17/18 Gastrointestinal Tract Panel (PCR) - Final, Resulted Salmonella 09/17/18 , Resulted Pending 09/14/18 Respiratory Virus Panel (PCR) ([facility]ER[facility]INE) - Final, Complete KIM SUÁREZ MD September 17, 2018 17:36
[2018-09-17] MEDS: fentaNYL 75 MCG/HR PATCH TOP SCH (17:45)
[2018-09-17 20:00] VITALS: BP 138/93
[2018-09-17] MEDS: ATORVASTATIN 20 MG TAB PO SCH (20:10)
[2018-09-18] VITALS: BP 118/82
[2018-09-18 04:00] VITALS: BP 102/64
[2018-09-18] MEDS: LEVOTHYROXINE 150MCG TABLET (0.15MG) PO SCH (06:06)
[2018-09-18] MEDS: SLF 3 ML SYR IV SCH (06:06)
[2018-09-18 06:27] LABS: HEMATOCRIT 30.8 % (36.0-47.0); HEMOGLOBIN 9.8 g/dl (12.0-15.5); MEAN CORPUSCULAR HEMOGLOBIN 29.4 pg (27.0-33.0); MEAN CORPUSCULAR HGB CONC 31.8 g/dl (32.0-36.5); MEAN CORPUSCULAR VOLUME 92.5 fl (80.0-96.0); PLATELET COUNT, AUTOMATED 229 10^3/uL (150-450); RED BLOOD COUNT 3.33 10^6/uL (4.00-5.40); WHITE BLOOD COUNT 8.4 10^3/uL (4.0-10.0)
[2018-09-18 07:03] LABS: BLOOD UREA NITROGEN 11 MG/DL (7-18); CALCIUM LEVEL 8.5 MG/DL (8.5-10.1); CARBON DIOXIDE LEVEL 30 MEQ/L (21-32); CHLORIDE LEVEL 105 MEQ/L (98-107); CREATININE FOR GFR 0.78 MG/DL (0.55-1.30); GLOMERULAR FILTRATION RATE > 60.0 (>51); GLUCOSE, FASTING 96 MG/DL (70-100); SODIUM LEVEL 143 MEQ/L (136-145)
[2018-09-18 08:00] VITALS: BP 108/54
[2018-09-18] MEDS: DULoxetine 30 MG CAP (CYMBALTA) PO SCH (08:14)
[2018-09-18] MEDS: FUROSEMIDE 20 MG TAB PO SCH (08:14)
[2018-09-18] MEDS: SODIUM CHLORIDE 0.9% INJ 10 ML SYR IV SCH (08:15)
[2018-09-18] MEDS: oxyCODONE 5MG TAB PO PRN (08:15)
[2018-09-18] MEDS: ENOXAPARIN 40 MG/0.4 ML SYRINGE (J1650) SC SCH (08:16)
[2018-09-18] MEDS: ADDERALL 5 MG TAB PO SCH (09:49)
[2018-09-18] MEDS ORDERED: LEVA750T7 PO (11:00)
--- NOTE | 2018-09-18 11:20 | DS.PDOC ---
Discharge Summary General Date of Admission September 14, 2018 at 13:05 Date of Discharge 09/18/18 Attending Physician: KIM SUÁREZ MD Specialist/Consultants Involve: SOFÍA LOVE MD Discharge Summary PROCEDURES PERFORMED DURING STAY: [None]. ADMITTING DIAGNOSES: 1. Hypoxia 2/2 Pneumonia 2. Diarrhea 3. Grave's disease 4. ADD DISCHARGE DIAGNOSES: 1. Hypoxia 2/2 Pneumonia 2. Diarrhea 2/2 Salmonella infection 3. Grave's disease 4. ADD COMPLICATIONS/CHIEF COMPLAINT: Malignant Neoplasm Of Upper Inner Quad Breast. HISTORY OF PRESENT ILLNESS: "Patient is a 53-year-old female with history of bilateral breast cancer follows with Dr. Whitlock, Crohn's disease, ADD, Grave's disease s/p radioactive iodine treatment was sent in from oncology's office for pneumonia. Patient has had L. breast cancer 2012 s/p chemo then diagnosed with R. breast cancer 2018 and had completed chemotherapy with subsequent plan for starting RT in the coming week/s. She was sent from Oncology's office today for reported complaints of SOB, Cough, and hypoxia down to 78%. CXR was done outpatient showing b/l pneumonia. Patient reported feeling sick for almost a week with intermittent fevers at home up to 102F with dry cough and pleuritic chest pain with cough and SOB. She also states that she has had a flare of her Crohn's 3 weeks prior with diarrhea/n/V/abdominal pain that had mostly improved by now. She reports no other complaints at this time. " HOSPITAL COURSE: Patient's clinical status improved quickly after starting Abx for PNA. Patient had no respiratory complaints and reports feeling well however states that she has watery stool/diarrhea for the past several weeks as a result of her Crohn's flare. GI was consulted who evaluated the patient and see no evidence of Crohn's from previous records but does notice likely celiac disease on workup. GI panel + for salmonella. Patient has been on Levaquin for PNA which also should help with Salmonella infection. Diarrhea still persistent but patient reports that it's better in terms of abdominal cramping and frequency of stool outpatient is less than before and wishing to go home. Will discharge patient to f/u with PCP and GI again as outpatient. DISCHARGE MEDICATIONS: Please see below. ALLERGIES: Please see below. PHYSICAL EXAMINATION ON DISCHARGE: VITAL SIGNS: Please see below. General: No acute distress, Alert Eyes: Normal sclera, EOMI, ERIKA HENT: Atraumatic, neck supple, moist mucous membranes Cardiovascular: Normal rate, normal rhythm. No murmurs appreciated. Pulmonary: Clear to auscultation b/l, no wheezing GI: Soft, nondistended. Mild abdominal tenderness throughout. Skin: Warm and dry Neuro: CN grossly intact. No focal deficits. Strengths equal b/l. Psych: oriented x 3 LABORATORY DATA: Please see below. IMAGING: CT Abdomen- IMPRESSION: 1. Ileus with or without enteritis. Correlate clinically. The exam is limited as described above. 2. Chronic changes involving the mesentery with adenopathy as described above and with a stable appearance. 3. Likely lung bases subsegmental atelectatic changes. 4. Nonobstructing nephroliths on the right. 5. Other findings as described above. ACTIVITY: [As tolerated]. DIET: Gluten restricted diet DISCHARGE PLAN: Complete course of Levaquin for 3 more days starting 09/18/18 f/u with PCP within 1 week f/u with Dr. Das 1-2 weeks DISPOSITION: Home. DISCHARGE INSTRUCTIONS: Complete course of Levaquin for 3 more days starting 09/18/18 f/u with PCP within 1 week f/u with Dr. Das 1-2 weeks ITEMS TO FOLLOWUP ON ON OUTPATIENT: None DISCHARGE CONDITION: [Stable]. TIME SPENT ON DISCHARGE: 32 minutes. Vital Signs/I&Os Vital Signs Date Time Temp Pulse Resp B/P (MAP) Pulse Ox O2 Delivery O2 Flow Rate FiO2 09/18/18 08:45 18 96 09/18/18 08:00 97.6 97 108/54 (72) 09/16/18 08:00 2.0 09/14/18 15:45 Nasal Cannula I&O- Last 24 Hours up to 6 AM 09/18/18 06:00 Intake Total 570 ml Output Total 1875 ml Balance -1305 ml Laboratory Data Labs 24H Laboratory Tests 2 09/18/18 06:08: Nucleated Red Blood Cells % (auto) 0.0, Anion Gap 8, Glomerular Filtration Rate > 60.0, Blood Urea Nitrogen 11, Creatinine 0.78, Sodium Level 143, Potassium Level 4.0, Chloride Level 105, Carbon Dioxide Level 30, Calcium Level 8.5 CBC/BMP Laboratory Tests 09/18/18 06:08 Red Blood Count 3.33 L, Mean Corpuscular Volume 92.5, Mean Corpuscular Hemoglobin 29.4, Mean Corpuscular Hemoglobin Concent 31.8 L, Red Cell Distribution Width 15.4 H, Calcium Level 8.5 Microbiology Microbiology 09/14/18 Blood Culture - Preliminary, Resulted No Growth after 72 hours. All specime... 09/14/18 Blood Culture - Preliminary, Resulted No Growth after 72 hours. All specime... 09/17/18 Gastrointestinal Tract Panel (PCR) - Final, Resulted Salmonella 09/17/18 , Resulted Pending 09/14/18 Respiratory Virus Panel (PCR) ([facility]ER[facility]) - Final, Complete Discharge Medications Scheduled Atorvastatin Calcium (Atorvastatin Calcium) 40 Mg Tab, 40 MG PO QHS, (Reported) Cyanocobalamin (Cyanocobalamin Injection) 1,000 Mcg/1 Ml Inj, 1,000 MCG IM 1XWK, (Reported) THURSDAYS Dextroamphetamine/Amphetamine (Adderall 30 mg Tablet) 30 Mg Tablet, 30 MG PO DAILY, (Reported) Duloxetine Hcl (Duloxetine HCl) 60 Mg Cap, 60 MG PO DAILY, (Reported) Fentanyl (Duragesic) 75 Mcg/Hr Dis, 75 MCG TOP Q3D, (Reported) LAST PATCH WAS APPLIED 09/13/18 AM, WAS REMOVED ON 09/14/18 BY ED STAFF Furosemide (Furosemide) 20 Mg Tab, 20 MG PO DAILY, (Reported) Levofloxacin (Levaquin) 750 Mg Tablet, 750 MG PO DAILY Start 09/19/18 Levothyroxine Sodium (Synthroid) 300 Mcg Tab, 300 MCG PO DAILY, (Reported) Scheduled PRN Acetaminophen (Tylenol Extra Strength) 500 Mg Tablet, 1,000 MG PO QID PRN for PAIN, (Reported) Dicyclomine HCl (Dicyclomine HCl) 20 Mg Tablet, 20 MG PO Q6H PRN for ABDOMINAL PAIN, (Reported) Ondansetron (Ondansetron Odt) 8 Mg Tab.rapdis, 8 MG PO Q6H PRN for NAUSEA OR VOMITING, (Reported) Oxycodone Hcl (Oxycodone HCl) 15 Mg Tab, 15 MG PO Q4H PRN for PAIN, (Reported) Allergies Coded Allergies: Penicillins (Verified Allergy, Intermediate, hives, 07/26/18) Wheat (Verified Allergy, Intermediate, CELIACS DISEASE, 04/28/17) budesonide (Verified Allergy, Intermediate, eye swelling, 07/26/18) cephalexin (Verified Allergy, Intermediate, hives/swelling, 07/27/18) (from keflex) ciprofloxacin (Verified Allergy, Intermediate, hives/swelling, 09/14/18) TAKES LEVAQUIN WITH NO ISSUES Gluten Flour (Verified Adverse Reaction, Intermediate, celiacs disease, 07/27/18) ketorolac (Verified Adverse Reaction, Intermediate, severe headache, 07/27/18) KIM SUÁREZ MD September 18, 2018 11:20
[2018-09-18] MEDS: LevoFLOXacin IV 750 MG in APPROPRIATE DILUENT 1 EA IV SCH (12:00)
== END 2018-09-18 12:51 | disposition home or self-care (01) | DRG 871 ==
LOC: M ED 10:27 → M ED INP 13:05 → M PCU 16:13
PROVIDERS: ADMIT Student in an Organized Health Care Education/Training Program; ATTEND Student in an Organized Health Care Education/Training Program
DX: A41.9 Sepsis, unspecified organism (principal); J18.9 Pneumonia, unspecified organism; A02.0 Salmonella enteritis; E05.90 Thyrotoxicosis, unspecified without thyrotoxic crisis or storm; Z85.3 Personal history of malignant neoplasm of breast; Z79.899 Other long term (current) drug therapy; Z88.0 Allergy status to penicillin; Z88.8 Allergy status to other drugs, medicaments and biological substances; K90.0 Celiac disease

== ENCOUNTER → 2018-09-14 | Outpatient (CLI) | payer OTHER ==
[~2018-09-14] MED LIST changes: +ACET-897 PO; +ADDE30TA PO; +LEVA750T7 PO
--- NOTE | 2018-09-14 15:11 | REP ---
Chest x-ray: Two views. History: Fever shortness of breath. Rule out pneumonia. Comparison chest x-ray April 24, 2018. Comparison is made with a long images from the August 12, 2018 CT study of the abdomen as well. Findings: There is a right-sided Fiveip-V-Ozzp catheter and oxygen delivery tubing. There are extensive mixed alveolar interstitial infiltrates in the perihilar regions bilaterally left more advanced than right. This is similar to the pattern observed in April 24, 2018. The lung bases were clear at the time of the August 12, [address] Heart is not enlarged. There is a mild dextroconvex curvature in the thoracic spine. There are clips in right upper quadrant of the abdomen. Impression: Findings consistent with recurrent widespread bilateral pneumonia. Electronically Signed by Jeff Agarwal MD 09/14/2018 03:02 P
== END ==
LOC: M RAD 09:28
PROVIDERS: ATTEND Internal Medicine Medical Oncology
DX: R50.9 Fever, unspecified (principal); R06.02 Shortness of breath

== ENCOUNTER 2018-09-20 12:45 | Outpatient (RCR) | payer OTHER ==
--- NOTE | 2018-09-13 10:22 | RADONC ---
RADIATION ONCOLOGY SIMULATION NOTE DATE OF SERVICE: 09/13/2018 CHART NUMBER: DIAGNOSIS: Right breast cancer in a patient with a previous history of left breast cancer. The tumor was noted to be an infiltrating ductal carcinoma in October of 2017 and she received chemotherapy in the form of TCH as well as Taxol and Herceptin. She is now referred for evaluation of local regional radiotherapy and she is being simulated today. Stage I A ([id number], ER weakly positive, NE negative, HER2/eduardo positive). ECOG PERFORMANCE STATUS: 0 SIMULATION NOTE: The patient was placed in a supine position upon our CT simulator and an immobilization device was constructed to ensure daily accuracy of treatments by preventing necessary motion. She tolerated the making of the immobilization device quite well with no significant untoward side effects. Thereafter, CT images were captured at 3 mm intervals for contouring purposes of both the targeted areas as well as critical vital structures. This will be utilized in the treatment planning process. I was there during the entire time of simulation. The patient tolerated the entire process well with no significant untoward side effects.
[~2018-09-20 12:45] MED LIST changes: +ACET-897 PO; +ADDE30TA PO; +LEVA750T7 PO
== END 2018-09-28 ==
LOC: M ONCR 12:45
PROVIDERS: ATTEND Radiology Radiation Oncology
DX: C50.911 Malignant neoplasm of unspecified site of right female breast (principal)

== ENCOUNTER 2018-10-26 08:06 | Outpatient (RCR) | payer OTHER ==
--- NOTE | 2018-10-08 14:25 | RADONC ---
RADIATION ONCOLOGY PROGRESS NOTE DATE: 10/08/2018 CHART #: [id number] Ms. Long is presently at a dose of 720 cGy to her right breast and is tolerating treatments quite well at this point with no complaints related to her radiation therapy. She is having no breast or bone pain. REVIEW OF SYSTEMS: The patient's review of systems is noncontributory. Denies nausea, vomiting, fevers, chills, night sweats, diplopia, headaches, anxiety or depression, anorexia, weight loss, visual disturbances, chest pain, urinary or bowel difficulties, bone pain, or neurological problems. PHYSICAL EXAMINATION: The patient's skin is in good condition with no evidence of radiation change present. There is no moist or dry desquamation. The remainder of her physical exam remains unchanged. Ms. Long is tolerating treatments quite well and radiation will continue as scheduled.
--- NOTE | 2018-10-16 07:10 | RADONC ---
RADIATION ONCOLOGY PROGRESS NOTE DATE: 10/15/2018 CHART #: [id number] Ms. Long is presently at a dose of 1440 cGy to her right breast and is tolerating treatments quite well at this point with no complaints related to her radiation therapy. She has no breast or bone pain. REVIEW OF SYSTEMS: The patient's review of systems is noncontributory. Denies nausea, vomiting, fevers, chills, night sweats, diplopia, headaches, anxiety or depression, anorexia, weight loss, visual disturbances, chest pain, urinary or bowel difficulties, bone pain, or neurological problems. PHYSICAL EXAMINATION: The patient's skin is in good condition with no evidence of radiation change present. There is no moist or dry desquamation. The remainder of her physical exam remains unchanged. Ms. Long is tolerating treatments quite well and radiation will continue as scheduled.
[~2018-10-26 08:06] MED LIST changes: -DULO1CAP3 PO; +DULO1CAP6 PO
== END 2018-10-28 ==
LOC: M ONCR 08:06
PROVIDERS: ATTEND Radiology Radiation Oncology
DX: C50.911 Malignant neoplasm of unspecified site of right female breast (principal)

== ENCOUNTER 2018-11-03 12:34 | Emergency (ER) | payer OTHER ==
[~2018-11-03] VITALS: Ht 175.3 cm; Wt 77.3 kg
[2018-11-03] MEDS ORDERED: ONDANSETRON 4MG/2ML VIAL (J2405) IV ONE (13:45)
[2018-11-03] MEDS ORDERED: NS 1,000 ML IV ONE (13:45)
[2018-11-03] MEDS ORDERED: PANTOPRAZOLE 40MG INJ (PROTONIX) (C9113) IV ONE (13:45)
--- NOTE | 2018-11-03 14:26 | REP ---
Clinical: Abdominal pain. Technique: Upright view of the chest with supine and upright views of the abdomen and pelvis. Findings: Frontal view of the chest demonstrates no free air below diaphragm to suspect pneumoperitoneum. No consolidation, effusion, or pneumothorax. [id number] with tip in the SVC. Cardiac silhouette normal. Supine and upright views of the abdomen and pelvis are nonspecific although enterocolitis cannot be excluded. No organomegaly. Prior cholecystectomy. No abnormal calcifications. Skeletal structures are intact. Impression: Possible enterocolitis. Electronically Signed by Freddy Hammond MD 11/03/2018 02:18 P
[2018-11-03 14:52] LABS: BASO % 0.5 % (0.0-1.0); EOS % 0.5 % (0.0-3.0); HEMATOCRIT 39.6 % (36.0-47.0); HEMOGLOBIN 12.3 g/dl (12.0-15.5); LYMPH # 2.1 10^3/uL (1.5-4.5); LYMPH % 32.8 % (24.0-44.0); MEAN CORPUSCULAR HEMOGLOBIN 28.4 pg (27.0-33.0); MEAN CORPUSCULAR HGB CONC 31.1 g/dl (32.0-36.5); MEAN CORPUSCULAR VOLUME 91.5 fl (80.0-96.0); MONO # 0.4 10^3/uL (0.0-0.8); MONO % 6.5 % (0.0-5.0); NEUTROPHILS # 3.8 10^3/uL (1.8-7.7); NEUTROPHILS % 59.4 % (36.0-66.0); PLATELET COUNT, AUTOMATED 177 10^3/uL (150-450); RED BLOOD COUNT 4.33 10^6/uL (4.00-5.40); WHITE BLOOD COUNT 6.4 10^3/uL (4.0-10.0)
[2018-11-03 14:53] LABS: INR 1.13; PROTHROMBIN TIME 14.2 SECONDS (11.8-14.0)
[2018-11-03 15:05] LABS: ALBUMIN 3.5 GM/DL (3.2-5.2); ALT/SGPT 51 U/L (12-78); BILIRUBIN,DIRECT < 0.1 MG/DL (0.0-0.2); BILIRUBIN,TOTAL 0.2 MG/DL (0.2-1.0); BLOOD UREA NITROGEN 10 MG/DL (7-18); CALCIUM LEVEL 8.7 MG/DL (8.5-10.1); CARBON DIOXIDE LEVEL 26 MEQ/L (21-32); CHLORIDE LEVEL 112 MEQ/L (98-107); CREATININE FOR GFR 0.66 MG/DL (0.55-1.30); GLOMERULAR FILTRATION RATE > 60.0 (>51); GLUCOSE, FASTING 96 MG/DL (70-100); LIPASE 127 U/L (73-393); POTASSIUM SERUM 3.7 MEQ/L (3.5-5.1); SODIUM LEVEL 145 MEQ/L (136-145); TOTAL PROTEIN 6.7 GM/DL (6.4-8.2)
[2018-11-03] MEDS ORDERED: fentaNYL 100 MCG/2 ML INJECTION (J3010) IV ONE (15:30)
[2018-11-03] MEDS ORDERED: NS 1,000 ML IV SCH (16:30)
[2018-11-03] MEDS ORDERED: SODIUM CHLORIDE 0.9% INJ 10 ML SYR IV PRN (18:00)
[2018-11-03 18:10] VITALS: BP 112/61
== END 2018-11-03 18:41 | disposition home or self-care (01) ==
LOC: M ED 14:43
DX: K52.9 Noninfective gastroenteritis and colitis, unspecified (principal); I10 Essential (primary) hypertension; I25.10 Atherosclerotic heart disease of native coronary artery without angina pectoris; E07.9 Disorder of thyroid, unspecified; Z79.899 Other long term (current) drug therapy; Z79.890 Hormone replacement therapy; Z88.0 Allergy status to penicillin; Z88.1 Allergy status to other antibiotic agents; Z88.8 Allergy status to other drugs, medicaments and biological substances; Z91.018 Allergy to other foods; Z87.891 Personal history of nicotine dependence
CPT/HCPCS: 74021; 80048; 80076; 81001; 83690; 85025; 85610; 87086; 87507; 96374; 96375; 99284; C9113; J2405; J3010

== ENCOUNTER 2018-11-05 09:05 | Emergency (ER) | payer OTHER ==
[~2018-11-05] VITALS: Ht 175.3 cm; Wt 73.6 kg
[2018-11-05] MEDS ORDERED: MORPHINE 4 MG/ML 1ML VIAL/SYRINGE (J2270) IV ONE ×2 (09:45→12:15)
[2018-11-05] MEDS ORDERED: NS 1,000 ML IV ONE (09:45)
[2018-11-05 10:36] LABS: BASO % 0.5 % (0.0-1.0); EOS # 0.1 10^3/uL (0.0-0.50); EOS % 0.6 % (0.0-3.0); HEMATOCRIT 38.9 % (36.0-47.0); HEMOGLOBIN 12.3 g/dl (12.0-15.5); LYMPH # 2.6 10^3/uL (1.5-4.5); LYMPH % 29.2 % (24.0-44.0); MEAN CORPUSCULAR HGB CONC 31.6 g/dl (32.0-36.5); MEAN CORPUSCULAR VOLUME 88.4 fl (80.0-96.0); MONO # 0.5 10^3/uL (0.0-0.8); MONO % 6.2 % (0.0-5.0); NEUTROPHILS # 5.5 10^3/uL (1.8-7.7); NEUTROPHILS % 63.3 % (36.0-66.0); PLATELET COUNT, AUTOMATED 226 10^3/uL (150-450); WHITE BLOOD COUNT 8.7 10^3/uL (4.0-10.0)
[2018-11-05 11:08] LABS: ALBUMIN 3.3 GM/DL (3.2-5.2); ALT/SGPT 47 U/L (12-78); BILIRUBIN,DIRECT < 0.1 MG/DL (0.0-0.2); BILIRUBIN,TOTAL 0.1 MG/DL (0.2-1.0); BLOOD UREA NITROGEN 14 MG/DL (7-18); CARBON DIOXIDE LEVEL 27 MEQ/L (21-32); CHLORIDE LEVEL 114 MEQ/L (98-107); CREATININE FOR GFR 1.09 MG/DL (0.55-1.30); GLOMERULAR FILTRATION RATE 56.1 (>51); GLUCOSE, FASTING 102 MG/DL (70-100); LIPASE 231 U/L (73-393); POTASSIUM SERUM 3.5 MEQ/L (3.5-5.1); SODIUM LEVEL 146 MEQ/L (136-145); TOTAL PROTEIN 6.7 GM/DL (6.4-8.2)
[2018-11-05] MEDS ORDERED: NS 1,000 ML IV SCH (12:37)
[2018-11-05] MEDS: GASTROGRAFIN SOLUTION 30ML PO SCH ×2 (12:52→13:24)
[2018-11-05] MEDS ORDERED: ISOVUE-370 76% 100ML VIAL (Q9967) As Ordered ONE (14:05)
[2018-11-05] MEDS ORDERED: oxyCODONE 5MG TAB PO ONE (15:15)
--- NOTE | 2018-11-05 15:19 | REP ---
CT ABDOMEN AND PELVIS WITH ORAL AND IV CONTRAST: TECHNIQUE: Axial contrast enhanced images from the lung bases to the pubic symphysis using 100 mL Isovue 370 intravenous contrast material with multiplanar reformations. COMPARISON: 08/12/2018 The visualized lung bases demonstrate no acute infiltrate. There is diffuse fatty infiltration of the liver. The patient has had a prior cholecystectomy. There is no biliary dilatation. The spleen, adrenals, pancreas, and kidneys are essentially unremarkable. There are two or three tiny calcifications in the right renal collecting system without hydronephrosis. There is no abdominal aortic aneurysm with scattered atherosclerotic calcification. Multiple subcentimeter central mesenteric lymph nodes are again seen essentially unchanged. There is no free air. There is trace free fluid in the pelvis. No bowel wall thickening is seen. I do not see evidence of appendicitis. No pelvic mass is seen. The urinary bladder is mildly distended and grossly unremarkable. IMPRESSION: No acute abnormality is identified. Stable subcentimeter mesenteric lymph nodes. No evidence of appendicitis. No free air. Trace free fluid in the pelvis. Electronically Signed by Rojelio Roth MD 11/06/2018 10:04 A
[2018-11-05 18:00] VITALS: BP 140/78
[2018-11-05] MEDS ORDERED: SODIUM CHLORIDE 0.9% INJ 10 ML SYR IV PRN (18:00)
--- NOTE | 2018-11-05 18:25 | REP ---
Pelvic sonography: History: Right lower quadrant pain. Rule out torsion. Comparison CT study November 05, 2018. Sonographic findings: Transabdominal and transvaginal scanning are included. Uterine dimensions are normal at 5.8 x 2.8 x 4.5 cm. Endometrial echo is 1.0 cm thick. Uterus is retroverted. There is a 10 mm anterior fibroid. Endometrium is somewhat heterogeneous. Normal ovaries seen bilaterally. Right ovary measures 2.3 x 0.9 x 1.2 cm. Left ovarian dimensions are 1.8 x 0.8 x 1.1 cm. Doppler flow is present in both ovaries. Visualized bladder peres are smooth. Impression: Retroverted uterus. Small fibroid. Normal ovaries bilaterally. No sonographic evidence to suggest ovarian torsion. Electronically Signed by Jeff Agarwal MD 11/06/2018 04:42 P
[2018-11-06] MEDS ORDERED: SODIUM CHLORIDE 0.9% INJ 10 ML SYR IV SCH (09:00)
== END 2018-11-05 18:00 | disposition home or self-care (01) ==
LOC: M ED 10:12
DX: R10.9 Unspecified abdominal pain (principal); D25.9 Leiomyoma of uterus, unspecified; N85.4 Malposition of uterus; Z85.3 Personal history of malignant neoplasm of breast; K50.919 Crohn's disease, unspecified, with unspecified complications; F90.0 Attention-deficit hyperactivity disorder, predominantly inattentive type; Z79.899 Other long term (current) drug therapy; Z88.0 Allergy status to penicillin; Z88.1 Allergy status to other antibiotic agents; Z88.8 Allergy status to other drugs, medicaments and biological substances; Z91.018 Allergy to other foods
CPT/HCPCS: 74177; 76830; 76856; 80048; 80076; 81001; 83690; 85025; 93041; 93976; 96361; 96374; 96376; 99285; J2270; Q9963; Q9967

== ENCOUNTER → 2018-11-28 | Outpatient (RCR) | payer OTHER ==
--- NOTE | 2018-11-05 10:10 | RADONC ---
RADIATION ONCOLOGY PROGRESS NOTE: DATE: 11/05/2018 CHART NUMBER: [id number] Ms. Long is presently at a dose of 2700 cGy to her right breast and is tolerating her radiation quite well with no complaints related to her radiation therapy. She has no breast discomfort or skin discomfort. The patient is however reporting that she is having significant right lower quadrant pain. Apparently, she was seen in the emergency room this weekend but the pain has actually worsened since yesterday. The patient is holding her lower abdomen and quite concerned. She has a history of Crohn's disease and has been seen multiple times and treated for her colitis in the past. REVIEW OF SYSTEMS: The patient's review of systems is positive for significant lower quadrant pain but is otherwise noncontributory. She denies nausea, vomiting, fevers, chills, night sweats, diplopia, headaches, anxiety or depression, anorexia, weight loss, visual disturbances, chest pain, urinary or bowel difficulties, bone pain, or neurological problems. PHYSICAL EXAMINATION: The patient's skin is in excellent condition with no evidence of radiation change present. There is no moist or dry desquamation. The remainder of physical exam remains unchanged. Ms. Long is tolerating treatments quite well and radiation will continue as scheduled.
--- NOTE | 2018-11-12 14:54 | RADONC ---
RADIATION ONCOLOGY PROGRESS NOTE DATE: 11/12/2018 CHART NUMBER: [id number] Ms. Long is thus far at a dose of 3240 cGy to her right breast and as of last week had been tolerating treatments quite well with no difficulties related to her radiation therapy. She had no significant skin pain or other problems. REVIEW OF SYSTEMS: The patient's review of systems was noncontributory. She denies nausea, vomiting, fevers, chills, night sweats, diplopia, headaches, anxiety or depression, anorexia, weight loss, visual disturbances, chest pain, urinary or bowel difficulties, bone pain, or neurological problems. As of last week the patient's skin was in good condition with no evidence of moist or dry desquamation and her physical exam remained otherwise unchanged. The patient did not come in today due to personal issues and is scheduled to resume radiation tomorrow.
--- NOTE | 2018-11-21 06:41 | RADONC ---
RADIATION ONCOLOGY PROGRESS NOTE DATE: 11/20/2018 CHART #: [id number] Ms. Long is presently at a dose of 3600 cGy to her right breast and is tolerating treatments quite well at this point with no complaints related to her radiation therapy. She is having no skin pain or other problems. REVIEW OF SYSTEMS: The patient's review of systems is positive for diarrhea from her Crohn disease which is unrelated to our treatment. She has no other complaints at this time. The patient's review of systems is noncontributory except for diarrhea. Denies nausea, vomiting, fevers, chills, night sweats, diplopia, headaches, anxiety or depression, anorexia, weight loss, visual disturbances, chest pain, urinary or bowel difficulties, bone pain, or neurological problems. PHYSICAL EXAMINATION: The patient's skin is in good condition with no evidence of moist or dry desquamation. The remainder of her physical exam remains unchanged. Ms. Long has returned to us. She reported that she took off last week because she was embarrassed and has a difficult time leaving her house when she has uncontrollable Crohn's diarrhea. Her GI system has settled down and she is now resuming radiation.
--- NOTE | 2018-11-27 11:23 | RADONC ---
RADIATION ONCOLOGY PROGRESS NOTE DATE: 11/26/2018 CHART NUMBER: [id number] PROGRESS NOTE: Ms. Long called in once again to cancel her appointment for radiation. She is doing this because of her colitis, which is unrelated to radiation therapy, but she reports that she cannot be far from a bathroom. The patient's dose thus far is 3960 cGy to her right breast. At this time, radiation is scheduled to continue. The patient is aware of the need to come as routinely as possible.
[~2018-11-28] MED LIST changes: +AMPH1CAP5 PO; -AMPH30CA PO; +EXEM25TA PO; +FLOM0.4C39 PO; +PERC5TAB12 PO
== END ==
LOC: M ONCR 10-30 08:06
PROVIDERS: ATTEND Radiology Radiation Oncology
DX: C50.911 Malignant neoplasm of unspecified site of right female breast (principal)

== ENCOUNTER 2018-12-12 11:45 | Outpatient (RCR) | payer OTHER ==
--- NOTE | 2018-11-29 16:11 | RADONC ---
RADIATION ONCOLOGY SIMULATION NOTE DATE: 11/29/2018 CHART NUMBER: [id number] SIMULATION NOTE: Ms. Long was taken to the linear accelerator today for clinical setup of her right breast electron boost field. Setup was accomplished without difficulty or discomfort. Radiation treatment planning is underway and radiation treatments will begin subsequently. An immobilization device was created and will be used throughout out the course of treatment. I was physically present throughout the course of clinical setup simulation.
--- NOTE | 2018-12-03 13:37 | RADONC ---
RADIATION ONCOLOGY PROGRESS NOTE DATE: 12/03/2018 CHART #: [id number] Mrs. Long with a diagnosis of right breast cancer is currently receiving local regional radiotherapy and has no specific complaints related to her disease or to her treatments. Her current dose is 4860 cGy of an anticipated 6060 cGy. The patient will receive a boost of an additional 1200 cGy after her 4860 cGy is completed. She has no specific complaints related to her disease or to her treatments. REVIEW OF SYSTEMS: She specifically denies any nausea, vomiting, coughing, sputum production or hemoptysis. Her energy level is such that she is able to maintain most for day-to-day activities without any alteration of her lifestyle. Skin irritation is not a major issue for her. No other skin issues are dramatic and the patient really reports no further issues. EXAMINATION FINDINGS: Skin within the irradiated volume shows some hyperpigmentation, but no evidence of desquamation. There is no palpable peripheral lymphadenopathy. Lungs are clear. Heart regular. Lymphatics without a palpable lymphadenopathy. IMPRESSION: Tolerating therapy well. PLAN: Treatments to continue.
--- NOTE | 2018-12-14 14:25 | RADONC ---
RADIATION ONCOLOGY TREATMENT SUMMARY DATE: 12/12/2018 CHART NUMBER: [id number] DIAGNOSIS: Right breast cancer in a patient with a previous history of left breast cancer (treated). The tumor was noted to be an infiltrating ductal carcinoma diagnosed in October of 2017 and she received chemotherapy in the form of TCH as well as Taxol and Herceptin. She now was referred for local regional adjuvant radiotherapy for her stage I A, [id number], ER weakly positive, TX negative, HER2/eduardo positive tumor. PLAN OF RADIOTHERAPY: Adjuvant local regional radiotherapy. DATE OF RADIOTHERAPY STARTED: 10/01/2018 DATE OF RADIOTHERAPY COMPLETED: 12/12/2018 DOSE: The patient received a total of 6060 cGy to the tumor bed itself administered in 33 fractions over for 72 elapsed days. Prior to treatment delivery localization was accomplished upon our CT simulator and treatment portals defined by the use of multileaf collimators. She was treated with a 3-D conformal radiotherapy technique with tangential torres at 180 cGy a day for a total dose to the entire breast of 4860 cGy. Thereafter, the area of the lumpectomy site was boosted for an additional 1200 cGy with a 15 MeV electron beam. The whole breast was treated utilizing a 10 and 6 MV photon beam. STATUS OF TUMOR: There was no evidence of local regional recurrence, nor was there clinical evidence of distant metastatic spread during her course of radiotherapy. TOLERANCE: In general, treatments were relatively well tolerated. She did have several treatments which were cancelled because of her colitis. She had a history of Crohn disease. Because of these interruptions, her overall duration of treatment was extended. In general, with regards to tolerance the treatments were fairly well tolerated, denying any significant skin reaction but rather just the anticipated mild to moderate skin erythema with no desquamation. DISPOSITION: Return to clinic in 1 month for post radiotherapy followup visit and skin check, and she was advised to return to her referring physicians as per their directions and instructions. Thank you for allowing us the opportunity of participation in the joint management of this very fine patient. cc: MD Gaurang Higuera MD
== END 2018-12-29 ==
LOC: M ONCR 11:45
PROVIDERS: ATTEND Radiology Radiation Oncology
DX: C50.911 Malignant neoplasm of unspecified site of right female breast (principal)

== ENCOUNTER → 2018-12-12 | Outpatient (CLI) | payer OTHER ==
[~2018-12-12] MED LIST changes: -AMPH1CAP5 PO; +AMPH30CA PO; -EXEM25TA PO; -FLOM0.4C39 PO; -PERC5TAB12 PO
--- NOTE | 2018-12-12 15:01 | REP ---
REASON: Arhythmia. COMPARISON: Latest frontal view obtained 11/03/2018 as part of an abdominal series. FINDINGS: The superior mediastinal structures are midline. The cardiac silhouette is unremarkable in size, shape, and position. The diaphragmatic surfaces of the lungs are regular, and the costophrenic angles are clear. The pulmonary torres are clear. The imaged osseous structures are intact. IMPRESSION: There is no acute cardiopulmonary disease. No change from the prior exam. The tip of the Mediport device remains in the superior vena cava. Electronically Signed by Nawaf Stroud DO 12/13/2018 03:08 P
--- NOTE | 2018-12-12 18:31 | REP ---
Bilateral lower extremity arterial Doppler ultrasound: History: Peripheral vascular disease. Swelling. Findings: Ankle brachial indices are normal, 1.3 on the right and 1.36 on the left. There is mild atherosclerotic plaquing bilaterally. No high-grade stenosis is seen. Normal triphasic waveforms are noted throughout. Right lower extremity arterial Doppler velocity chart: CF A 138 cm/S Profunda 86 Proximal SFA 81 Mid SFA 112 Distal SFA 94 Popliteal 59 Proximal AT A 50 Tibioperoneal trunk 59 Proximal STEVEDORING SUPERINTENDENT 70 Distal STEVEDORING SUPERINTENDENT 67 Distal AT A 68 Left lower extremity arterial Doppler velocity chart: CF A 134 cm/S Profunda with 96 Proximal SFA 88 Mid SFA 105 Distal SFA 67 Popliteal 68 Proximal AT A 67 Tibioperoneal trunk 67 Proximal STEVEDORING SUPERINTENDENT 78 Distal STEVEDORING SUPERINTENDENT 78 Distal AT A 53 Electronically Signed by Jeff Agarwal MD 12/12/2018 06:23 P
== END ==
LOC: M RAD 12:07
PROVIDERS: ATTEND Family Medicine
DX: I49.9 Cardiac arrhythmia, unspecified (principal); I60.9 Nontraumatic subarachnoid hemorrhage, unspecified; M79.605 Pain in left leg

== ENCOUNTER → 2019-01-16 | Outpatient (CLI) | payer OTHER ==
--- NOTE | 2019-01-17 11:43 | RADONC ---
RADIATION ONCOLOGY FOLLOWUP NOTE DATE: 01/16/2019 CHART NUMBER: [id number] DIAGNOSIS: Left breast cancer. STAGE: I A, [id number], ER positive, MD negative, HER2/eduardo positive. ECOG PERFORMANCE STATUS: 0 FOLLOWUP NOTE: Ms. Long is a very pleasant, 53-year-old white female with the diagnosis of a stage I A, [id number], poorly differentiated infiltrating ductal carcinoma of the left breast who is presenting to us today for routine followup visit 1 month post completion of external beam radiation therapy. The patient presents today reporting that she is doing quite well with no complaints at this time related to her radiation therapy or disease. She has no breast or bone pain. REVIEW OF SYSTEMS: The patient's review of systems is noncontributory. Denies nausea, vomiting, fevers, chills, night sweats, diplopia, headaches, anxiety or depression, anorexia, weight loss, visual disturbances, chest pain, urinary or bowel difficulties, bone pain, or neurological problems. PHYSICAL EXAMINATION: The patient is a well-developed, well-nourished, 53-year-old white female, in no acute distress. HEENT exam is normocephalic, atraumatic. Extraocular movements are intact. There is no palpable cervical, supraclavicular, infraclavicular, axillary, or inguinal lymphadenopathy present. Lungs are clear to auscultation and percussion. Heart has a regular rate and rhythm. Abdomen is benign with no hepatosplenomegaly, masses, or tenderness. Breast examination reveals no masses or discharge bilaterally. Skeletal examination reveals no tenderness to pressure or percussion of the bony skeleton. Extremities reveal no clubbing, cyanosis, or edema. Neurologic exam is grossly intact, as is the remainder of the physical examination. ASSESSMENT: The patient is clinically SHARA at this time. She is being followed closely by her medical oncologist and will be undergoing Herceptin every 3 weeks. In light of this, I am discharging her from my followup except on a p.r.n. basis. cc: MD Gaurang Higuera MD
== END ==
LOC: M ONCR 11:09
PROVIDERS: ATTEND Radiology Radiation Oncology
DX: C50.412 Malignant neoplasm of upper-outer quadrant of left female breast (principal)

== ENCOUNTER → 2019-01-22 | Outpatient (CLI) | payer OTHER ==
[~2019-01-22] MED LIST changes: +EXEM25TA PO
--- NOTE | 2019-01-23 23:06 | ECHO ---
DATE OF PROCEDURE: 01/22/2019 AGE: 53 GENDER: Female HEIGHT: 69 inches WEIGHT: 162 pounds BODY SURFACE AREA: 1.89 m2 PATIENT LOCATION: Outpatient REFERRING PHYSICIAN: Екатерина Whitlock MD INDICATION: Breast cancer - potentially cardiotoxic chemotherapy. 2-D MEASUREMENTS: RV: 3.2 cm LV: 4.9 cm Septum: 1.0 cm Posterior wall: 1.0 cm Aortic root: 3.2 cm LA: 3.4 cm LVEF: 65% DOPPLER MEASUREMENTS: AV: 1.19 m/s LVOT: 0.84 m/s LVOT diameter: 2.0 cm MV-E: 62, A: 80, EA ratio: 0.8 Early mitral deceleration time: 140 ms E prime: 5.4, A prime: 10.7, EA ratio: 11.5 PCWP: 12.6 mmHg PV: 0.7 m/s Pulmonary artery acceleration time: 100 ms RVSP: 29 mmHg IVC: 0.9 cm COMMENTS Normal sinus rhythm without intraventricular conduction disturbance. M-mode and two-dimensional echocardiography was performed with pulsed, continuous wave, color flow and tissue Doppler studies. Normal left ventricular size, wall thickness and wall motion. Normal left atrial size with Doppler suggesting a degree of impaired LV diastolic function, but currently normal estimated mean left atrial pressure. Normal right heart chamber sizes and motion with Doppler evidence of borderline pulmonary hypertension. Normal IVC size and collapse against an elevated central venous pressure. Normal appearing and functioning valvular structures. Normal aortic root size. No apparent cardiac mass or pericardial effusion.
== END ==
LOC: M CARPUL 08:16
PROVIDERS: ATTEND Internal Medicine Medical Oncology
DX: C50.412 Malignant neoplasm of upper-outer quadrant of left female breast (principal)

== ENCOUNTER 2019-02-04 07:16 | Emergency (ER) | payer OTHER ==
[~2019-02-04] VITALS: Ht 175.3 cm; Wt 73.6 kg
[~2019-02-04 07:16] MED LIST changes: +AMPH1CAP5 PO; -AMPH30CA PO
[2019-02-04] MEDS ORDERED: NS 1,000 ML IV SCH (07:31)
[2019-02-04] MEDS: MORPHINE 4 MG/ML 1ML VIAL/SYRINGE (J2270) IV PRN ×2 (07:56→08:43)
[2019-02-04] MEDS ORDERED: ONDANSETRON 4MG/2ML VIAL (J2405) IV ONE (08:00)
[2019-02-04 08:03] LABS: BASO % 0.4 % (0.0-1.0); EOS # 0.1 10^3/uL (0.0-0.5); EOS % 0.8 % (0.0-3.0); HEMATOCRIT 32.4 % (36.0-47.0); HEMOGLOBIN 10.3 g/dl (12.0-15.5); LYMPH # 1.7 10^3/uL (1.5-5.0); LYMPH % 21.2 % (24.0-44.0); MEAN CORPUSCULAR HEMOGLOBIN 28.1 pg (27.0-33.0); MEAN CORPUSCULAR HGB CONC 31.8 g/dl (32.0-36.5); MEAN CORPUSCULAR VOLUME 88.3 fl (80.0-96.0); MONO # 0.6 10^3/uL (0.0-0.8); MONO % 7.3 % (0.0-5.0); NEUTROPHILS # 5.4 10^3/uL (1.5-8.5); NEUTROPHILS % 69.7 % (36.0-66.0); PLATELET COUNT, AUTOMATED 236 10^3/uL (150-450); RED BLOOD COUNT 3.67 10^6/uL (4.00-5.40); WHITE BLOOD COUNT 7.8 10^3/uL (4.0-10.0)
[2019-02-04 08:27] LABS: ALBUMIN 2.9 GM/DL (3.2-5.2); ALT/SGPT 23 U/L (12-78); BILIRUBIN,DIRECT < 0.1 MG/DL (0.0-0.2); BILIRUBIN,TOTAL 0.2 MG/DL (0.2-1.0); CK-MB VALUE MASS < 1.0 NG/ML (<3.6); CPK CREATINE PHOSPHOKINASE 49 U/L (26-192); LIPASE 112 U/L (73-393); MB/CK RELATIVE INDEX 2.04 (< OR =4); TOTAL PROTEIN 6.2 GM/DL (6.4-8.2); TROPONIN I < 0.02 NG/ML (< 0.10)
[2019-02-04] MEDS ORDERED: KCL 10MEQ/100ML SWI (KRUN) 10 MEQ in IV 1 EA IV ONE (08:30)
--- NOTE | 2019-02-04 09:29 | REP ---
CT ABDOMEN AND PELVIS WITHOUT CONTRAST: CT abdomen and pelvis was performed without oral or IV contrast. Sagittal and coronal reconstruction images are performed. Comparison is made with prior studies most recent of which is 11/05/2018. There is mild patchy peripheral atelectasis or infiltrate in the peripheral right middle lobe. There is mild hazy infiltrate or atelectasis in the visualized lingula and left lower lobe. The liver is grossly unremarkable. The patient has had a prior cholecystectomy. I do not see evidence of significant biliary dilation. The spleen, adrenals, and pancreas are grossly unremarkable. There is no left hydronephrosis or nephrolithiasis. There is mild right hydroureteronephrosis. No calculus is seen in the right renal collecting system or ureter but there is a 4 mm calculus in the bladder posteriorly on the right. There is mild atherosclerotic calcification of the abdominal aorta without aneurysm. Scattered subcentimeter mesenteric lymph nodes are unchanged since the prior studies. I see no bowel wall thickening or evidence of appendicitis. No free fluid is seen. There is no free air. There is no definite pelvic mass. IMPRESSION: Mild right hydroureteronephrosis without renal or ureteral calculus. There is a 4mm stone in the right base of the bladder. There is mild peripheral patchy atelectasis or infiltrate in the right middle lobe and mild hazy atelectasis or infiltrate in the lingula and visualized left lower lobe. No other acute findings. There are stable scattered subcentimeter mesenteric lymph nodes associated with some hazy central mesenteric density throughout the mesenteric fat suggesting chronic mesenteritis and or fibrosis. Electronically Signed by Rojelio Roth MD 02/04/2019 11:24 P
[2019-02-04] MEDS ORDERED: POTASSIUM CHLORIDE 10 MEQ SR TABLET PO ONE (09:30)
[2019-02-04] MEDS ORDERED: PERCOCET 5MG/325MG TAB PO ONE (10:45)
[2019-02-04] MEDS ORDERED: PERC5TAB12 PO (11:23)
[2019-02-04] MEDS ORDERED: FLOM0.4C39 PO (11:24)
[2019-02-04] MEDS ORDERED: HYDROMORPHONE HCL 0.5 MG/ 0.5 ML SYRINGE (J1170 PER 1) IV PRN (11:45)
[2019-02-04 12:15] VITALS: BP 113/64
--- NOTE | 2019-02-05 00:35 | ECGEPIP ---
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
--- NOTE | 2019-02-05 11:25 | ED PDOC ---
Post-Departure Follow-Up dr soares faxed formal report of ct abdp for fu Clifton Velasquez MD Feb 05, 2019 11:25
== END 2019-02-04 12:30 | disposition home or self-care (01) ==
LOC: EDBD 07:16 → M ED 07:16
DX: N20.1 Calculus of ureter (principal); K50.90 Crohn's disease, unspecified, without complications; E05.90 Thyrotoxicosis, unspecified without thyrotoxic crisis or storm; Z85.3 Personal history of malignant neoplasm of breast; Z92.3 Personal history of irradiation; Z92.21 Personal history of antineoplastic chemotherapy; K90.0 Celiac disease; Z88.0 Allergy status to penicillin; Z88.8 Allergy status to other drugs, medicaments and biological substances
CPT/HCPCS: 74176; 80047; 80076; 81001; 82550; 82553; 83690; 84484; 85025; 93005; 93041; 96374; 96375; 96376; 99285; J1170; J2270; J2405

== ENCOUNTER 2019-02-26 09:47 | Emergency (ER) | payer OTHER ==
[~2019-02-26] VITALS: Ht 175.3 cm; Wt 76.4 kg
[~2019-02-26 09:47] MED LIST changes: +FLOM0.4C39 PO; +PERC5TAB12 PO
[2019-02-26 11:16] VITALS: BP 143/86
[2019-02-26 11:29] LABS: BASO # 0.1 10^3/uL (0.0-0.2); BASO % 0.5 % (0.0-1.0); EOS # 0.1 10^3/uL (0.0-0.5); EOS % 0.7 % (0.0-3.0); HEMATOCRIT 40.2 % (36.0-47.0); HEMOGLOBIN 12.4 g/dl (12.0-15.5); LYMPH # 3.3 10^3/uL (1.5-5.0); LYMPH % 32.6 % (24.0-44.0); MEAN CORPUSCULAR HEMOGLOBIN 27.9 pg (27.0-33.0); MEAN CORPUSCULAR HGB CONC 30.8 g/dl (32.0-36.5); MEAN CORPUSCULAR VOLUME 90.3 fl (80.0-96.0); MONO # 0.9 10^3/uL (0.0-0.8); MONO % 8.7 % (0.0-5.0); NEUTROPHILS # 5.7 10^3/uL (1.5-8.5); NEUTROPHILS % 57.1 % (36.0-66.0); PLATELET COUNT, AUTOMATED 261 10^3/uL (150-450); RED BLOOD COUNT 4.45 10^6/uL (4.00-5.40)
[2019-02-26 11:49] LABS: ALBUMIN 3.9 GM/DL (3.2-5.2); ALT/SGPT 23 U/L (12-78); BILIRUBIN,DIRECT < 0.1 MG/DL (0.0-0.2); BILIRUBIN,TOTAL 0.2 MG/DL (0.2-1.0); BLOOD UREA NITROGEN 12 MG/DL (7-18); CALCIUM LEVEL 9.3 MG/DL (8.5-10.1); CARBON DIOXIDE LEVEL 27 MEQ/L (21-32); CHLORIDE LEVEL 109 MEQ/L (98-107); CREATININE FOR GFR 0.84 MG/DL (0.55-1.30); GLOMERULAR FILTRATION RATE > 60.0 (>51); GLUCOSE, FASTING 96 MG/DL (70-100); LIPASE 154 U/L (73-393); POTASSIUM SERUM 4.1 MEQ/L (3.5-5.1); SODIUM LEVEL 143 MEQ/L (136-145); TOTAL PROTEIN 7.6 GM/DL (6.4-8.2)
[2019-02-26] MEDS ORDERED: DICYCLOMINE INJ 20MG/2ML (J0500) IM ONE (12:15)
--- NOTE | 2019-02-26 12:17 | REP ---
Clinical: Kidney stone. Technique: Roth scale ultrasound evaluation of the kidneys using curved array transducer. Findings: The kidneys are essentially normal in contour size and echogenicity and reniform shape without hydronephrosis, nephrolithiasis, cystic or renal mass lesion. Right kidney measures 10.8 x 4.6 x 4.6cm. Left kidney measures 11.0 x 4.9 x 4.9cm. Impression: Normal renal ultrasound. No kidney stone or hydronephrosis appreciated. Electronically Signed by Freddy Hammond MD 02/26/2019 12:08 P
--- NOTE | 2019-02-26 22:41 | ECGEPIP ---
[facility] - ED Test Date: 2019-02-26 Pat Name: MAUREEN PORTILLO Department: Room: - Gender: Female Clinical Resource Nurse: brigette joel : 1965 Requested By: Yves Berg Order Number: [id number] Reading MD: Janina Will Measurements Intervals Enigma Rate: 84 P: 0 HI: 138 QRS: 40 QRSD: 88 T: 55 QT: 384 QTc: 455 Interpretive Statements SINUS RHYTHM NONSPECIFIC T-WAVE ABNORMALITY Electronically Signed on 02-26-2019 22:40:48 EDT by Janina Will
== END 2019-02-26 12:30 | disposition left against medical advice (07) ==
LOC: EDBD 09:47 → M ED 09:47
DX: G89.29 Other chronic pain (principal); R10.9 Unspecified abdominal pain; K50.90 Crohn's disease, unspecified, without complications; Z87.442 Personal history of urinary calculi; Z79.899 Other long term (current) drug therapy; Z88.0 Allergy status to penicillin; Z88.1 Allergy status to other antibiotic agents; Z91.018 Allergy to other foods
CPT/HCPCS: 36415; 76775; 80048; 80076; 81001; 83690; 85025; 87086; 93005; 93041; 96372; 99284; J0500